=== PATIENT | female | born 1965 | race Caucasian/White ===

== ENCOUNTER 2018-04-23 16:44 | Emergency (ER) | payer OTHER, SELFPAY ==
[2018-04-23 17:03] VITALS: BP 143/80; PULSE 116; RESP 18; TEMP 39.6; O2SAT 98
--- NOTE | 2018-04-23 17:09 | ED.FEVER ---
HPI - Fever General Chief Complaint: Fever Stated Complaint: fever and chills Time Seen by Provider: 04/23/18 17:08 Source: patient Mode of arrival: ambulatory Limitations: no limitations History of Present Illness HPI Narrative: otherwise healthy 52-year-old female here for evaluation of a couple days of fevers, body aches, lower back pain. Has had somewhat of a productive cough. No dysuria but does have foul smelling urine. Has not had her flu shot this year. No sick contacts. No rashes. No headache. Has not had nausea or vomiting until just prior to arrival here in the emergency department. Has had decreased oral intake over the past several days. Related Data Home Medications Medication Instructions Recorded Confirmed cetirizine 10 mg PO QDAY #0 10/30/16 03/03/18 cholecalciferol (vitamin D3) 4 spray PO Q DAY #0 10/30/16 03/03/18 [Vitamin D3] multivitamin [Multiple Vitamins] 1 tab PO Q DAY #0 10/30/16 03/03/18 naproxen sodium 220 mg tablet 220 mg PO Q8-12H PRN 11/27/17 03/03/18 Previous Rx's Medication Instructions Recorded clindamycin phosphate 1 % TOPICAL BID #60 ml 10/26/12 sertraline 50 mg tablet 100 mg PO QDAY #180 tab 04/11/18 levofloxacin 750 mg PO DAILY 4 Days #4 tab 04/23/18 Allergies Allergy/AdvReac Type Severity Reaction Status Date / Time cat dander Allergy Intermediate itchy Verified 03/03/18 15:45 eyes, runny nose, sinus imflamation dog dander Allergy Intermediate itchy Verified 03/03/18 15:45 eyes, runny nose, sinus imflamation Review of Systems Constitutional Reports chills, Reports fatigue, Reports fever(s), Denies headache(s), Reports lethargy and Reports malaise ENT Ears, Nose, Mouth, and Throat: Denies vertigo and Denies headache(s) Cardiovascular Reports chest pain and Reports dyspnea Respiratory Reports dyspnea Gastrointestinal Gastrointestinal: Denies abdominal pain, Denies cramping, Reports nausea and Reports vomiting Genitourinary Denies dysuria Comments: Foul-smelling urine Musculoskeletal Reports myalgias and Denies arthralgias Integumentary/Breasts Denies lesions and Denies rash Neurologic Denies vertigo and Denies headache(s) Endocrine Reports fatigue Hematologic/Lymphatic Denies easy bleeding and Denies easy bruising [facility] Medical History Recurrent major depressive disorder, in remission (Chronic 12/04/15) Presence of intrauterine contraceptive device (Chronic 10/07/17) Recurrent anxiety (Chronic 1999) Seasonal allergic rhinitis due to pollen (Chronic 1971) Acne (Chronic 2011) Chronic back pain (Chronic 1999) Eczema (Chronic 1998) Joint pain (Chronic 1978) Neuropathy (Chronic 1999) PTSD (post-traumatic stress disorder) (Chronic 1999) Reactive airway disease (Chronic 1989) Right hand pain (Chronic 2012) Shoulder pain (Chronic) Back fracture (Resolved 1999) Chicken pox (Resolved 1972) Clavicle fracture (Resolved 1999) 5 (Resolved) Normal Papanicolaou smear (Resolved) Surgical History History of shoulder surgery (Resolved) Family History Father Age: 79 Colon cancer Hypertension Mother No problems noted. Sister No problems noted. Social History Smoking Status: Former smoker Exam Initial Vital Signs Initial Vital Signs: Vital Signs Temperature 103.2 F H 04/23/18 17:03 Pulse Rate 116 H 04/23/18 17:03 Respiratory Rate 18 04/23/18 17:03 Blood Pressure 143/80 H 04/23/18 17:03 Pulse Oximetry 98 04/23/18 17:03 Const General: cooperative, well developed and well groomed Orientation: alert, awake and oriented x3 HENMT Head: normal to inspection and atraumatic Resp Effort & Inspection: normal respiratory effort Auscultation: clear to auscultation bilaterally Cardio Rate: tachycardic Rhythm: regular rhythm Pulses: radial pulses present GI Inspection: non-distended Palpation: soft, No firm and No tender Back/Spine/Pelvis Back: No CVA tenderness Skin Lesions: no lesions Rashes: no rashes Neuro General: alert and oriented x3 Extrem General: normal to inspection and capillary refill normal Psych Appearance: grossly normal and well kempt Course Orders Ordered: ED Orders 04/23/18 16:55 FLU A and B [Influenza A and B by PCR Rapid] Stat 04/23/18 17:30 Urinalysis and Microscopic Stat Urine Culture Stat 04/23/18 17:32 XR chest 1V Stat Sodium Chloride (Normal Saline 0.9%) 1,000 mls @ 1,000 mls/hr IV BOLUS ONE Stop: 04/23/18 19:24 Last Admin: 04/23/18 18:40 Dose: 1,000 mls/hr Discontinued Medications Sodium Chloride (Normal Saline 0.9%) 1,000 mls @ 1,000 mls/hr IV BOLUS ONE Stop: 04/23/18 18:30 Last Admin: 04/23/18 18:40 Dose: 1,000 mls/hr Ibuprofen (Advil) 800 mg PO NOW ONE Stop: 04/23/18 17:32 Last Admin: 04/23/18 17:54 Dose: 800 mg Levofloxacin (Levaquin) 750 mg PO NOW ONE Stop: 04/23/18 18:26 Last Admin: 04/23/18 18:40 Dose: 750 mg Vital Signs - 8 hr 04/23/18 17:03 04/23/18 18:00 Temperature 103.2 F H Pulse Rate 116 H 101 H Respiratory Rate 18 Blood Pressure 143/80 H Blood Pressure [Right Arm] 98/62 Pulse Oximetry 98 96 MDM - Fever Lab Data Attestation: I reviewed the patient's lab results. Lab Results 04/23/18 04/23/18 Range/Units 16:55 17:30 Urine Color Yellow Urine Appearance Cloudy Urine pH 6.0 (4.5-8.0) Ur Specific [place] 1.020 (1.000-1.035) Urine Protein 2+ H (Negative) Urine Glucose (UA) Negative (Normal) g/dL Urine Ketones Negative (NEGATIVE) Urine Occult Blood 3+ H (Negative) Urine Nitrate Negative (Negative) Urine Bilirubin Negative (NEGATIVE) Urine Urobilinogen 0.2 (0.2) E.U./dL Ur Leukocyte Esterase 2+ H (NEGATIVE) Urine RBC 1-5/hpf (0-5/HPF) Urine WBC >100/hpf H (0-5/HPF) Ur Squamous Epith Cells 0-1 /hpf Ur Renal Epithelial Cell 5-10/hpf H Urine Bacteria Moderate (10-30) H (None) Ur Culture Indicated? Specimen cultured Micro UA Comment Not Reportable Influenza A & B (PCR) Negative (Negative) Imaging Data Chest x-ray: Radiologist's impression: PROCEDURE: XR CHEST 1V INDICATIONS: fever and cough TECHNIQUE: One view of the chest was acquired. COMPARISON: None. FINDINGS: Surgical changes and devices: None. Lungs and pleura: Streaky right basilar opacity. Mediastinum: Mediastinal contours appear normal. Heart size is normal. Bones and chest wall: No suspicious bony lesions. Overlying soft tissues appear unremarkable. IMPRESSION: Streaky right basilar opacity suggestive of developing pneumonia. Dictated by: Leann Espinosa M.D. on 04/23/2018 at 17:47 Approved by: Leann Espinosa M.D. on 04/23/2018 at 17:47 [facility] Narrative Medical decision making narrative: flu is negative. Urinalysis is somewhat concerning for UTI however does have many epi cells. Patient does describe a foul-smelling urine but no other dysuria. Patient does have an x-ray concerning for developing pneumonia. She is not in respiratory distress. Her heart rate improved with Motrin here in the emergency department and also fluids. She was given a 1st dose of antibiotics here in the ER. She states she feels better after the fluids. Will start the patient on Levaquin to treat the pneumonia and also any potential of a urinary tract infection. Patient was given return precautions. She expressed understanding and agreement with plan. Discharge Plan Departure Patient Disposition: Home Clinical Impression: Pneumonia Instructions: DI for Pneumonia -- Adult Activity Restrictions/Additional Instructions: your chest x-ray today is concerning for a pneumonia. Like we discussed year urine also has some findings that may be a urinary tract infection. The antibiotic that you were given today should treat both of these infections. You were given her 1st dose here in the emergency department. The 2nd dose will be tomorrow (Wednesday). Make sure your drinking plenty of fluids. You can take Tylenol/ acetaminophen and/or Motrin / ibuprofen for any body aches and fevers. Call your primary care doctor for a follow-up. Prescriptions: New levofloxacin 750 mg tablet 750 mg PO DAILY 4 Days Qty: 4 RF: 0 No Action naproxen sodium [Aleve] 220 mg tablet 220 mg PO Q8-12H PRNRF: 0 clindamycin phosphate 1 % lotion 1 % Topical BID Qty: 60 RF: 0 multivitamin [Multiple Vitamins] 1 EACH tablet 1 tab PO Q DAY Qty: 0 RF: 0 cholecalciferol (vitamin D3) [Vitamin D3] 4,000 UNIT capsule 4 spray PO Q DAY Qty: 0 RF: 0 cetirizine 10 MG tablet 10 mg PO QDAY Qty: 0 RF: 0 sertraline 50 mg tablet 100 mg PO QDAY Qty: 180 RF: 1
--- NOTE | 2018-04-23 17:32 | DI.RAD.S_ITS ---
PROCEDURE: XR CHEST 1V INDICATIONS: fever and cough TECHNIQUE: One view of the chest was acquired. COMPARISON: None. FINDINGS: Surgical changes and devices: None. Lungs and pleura: Streaky right basilar opacity. Mediastinum: Mediastinal contours appear normal. Heart size is normal. Bones and chest wall: No suspicious bony lesions. Overlying soft tissues appear unremarkable. IMPRESSION: Streaky right basilar opacity suggestive of developing pneumonia. Dictated by: Leann Espinosa M.D. on 04/23/2018 at 17:47 Approved by: Leann Espinosa M.D. on 04/23/2018 at 17:47
[2018-04-23 17:33] LABS: Influenza A and B by PCR Rapid Negative (Negative)
[2018-04-23 17:44] LABS: Appearance Urine UA CLOUDY; Bilirubin Urine UA NEGATIVE (NEGATIVE); Color Urine UA YELLOW; Glucose Urine UA NEGATIVE (Normal); Ketones Urine UA NEGATIVE (NEGATIVE); Leukocyte Esterase Urine UA 2+ (NEGATIVE); Nitrite Urine UA NEGATIVE (Negative); Occult Blood Urine UA 3+ (Negative); Protein Urine UA 2+ (Negative); Urobilinogen Urine UA 0.2 E.U./dL (0.2)
[2018-04-23] MEDS: IBUPROFEN 400 MG TABLET 800 MG PO (17:54)
[2018-04-23 17:58] LABS: Bacteria Urine Moderate (10-30); Culture Indicated Urine Specimen Cultured; RBC Urine 1-5/HPF (0-5/HPF); Renal Epithelial Cells Urine 5-10/HPF; Squamous Epithelial Cell Urine 0-1 /HPF; WBC Urine >100/HPF (0-5/HPF)
[2018-04-23 18:00] VITALS: BP 98/62; PULSE 101; O2SAT 96
[2018-04-23] MEDS: levoFLOXacin 250 MG TABLET 750 MG PO (18:40)
[2018-04-23] MEDS: SODIUM CHLORIDE 0.9% 1,000 ML 1000 ML IV ×2 (18:40)
[2018-04-23 19:15] VITALS: BP 107/59; PULSE 82; RESP 18; O2SAT 96
[2018-04-23 19:46] VITALS: BP 105/56; PULSE 82; RESP 18; TEMP 37.1
== END 2018-04-23 19:40 | disposition home or self-care (01) ==
PROVIDERS: Emergency Provider Emergency Medicine; PCP Family Medicine
DX: J18.9 Pneumonia, unspecified organism (principal)
CPT/HCPCS: 71045; 81001; 87077; 87086; 87186; 87400; 96360; 99283; 99284

== ENCOUNTER → 2018-07-29 09:19 | Outpatient (CLI) | payer OTHER, SELFPAY ==
[2018-07-29 09:37] LABS: Add Manual Diff / Slide Review NO; Basophils Absolute Auto 100 /uL (0-100); Basophils Percent Auto 0.9 % (0-2); Eosinophils Absolute Auto 300 /uL (0-450); Eosinophils Percent Auto 4.5 % (2-4); Hematocrit 39.6 % (36-46); Hemoglobin 13.2 g/dL (12.0-16.0); Lymphocytes Absolute Auto 1500 /uL (1100-4500); Lymphocytes Percent Auto 26.5 % (25-40); Mean Corpuscular HGB Conc 33.5 % (30-36); Mean Corpuscular Volume 86.6 fL (80-100); Monocytes Absolute Auto 400 /uL (0-900); Monocytes Percent Auto 6.7 % (3-14); Neutrophils Absolute Auto 3600 /uL (1500-7000); Neutrophils Percent Auto 61.4 % (50-75); Platelet Count 214 X10^3/uL (150-400); Red Blood Cell Count 4.57 X10^6/uL (4.0-5.2); Red Cell Distribution Width 14.2 % (11.6-14.8); White Blood Cell Count 5.8 X10^3/uL (4.5-11.0)
[2018-07-29 09:56] LABS: Alanine Aminotransferase 18 IU/L (9-52); Albumin 4.5 g/dL (3.5-5.0); Albumin Globulin Ratio 1.3 (1.0-2.8); Alkaline Phosphatase 97 U/L (38-126); Aspartate Aminotransferase 24 IU/L (14-36); Bilirubin Total 0.4 mg/dL (0.2-1.3); Blood Urea Nitrogen 12 mg/dL (7-17); Calcium 9.1 mg/dL (8.4-10.2); Carbon Dioxide 26 mmol/L (22-32); Chloride 105 mmol/L (98-107); Cholesterol 152 mg/dL (140-199); Estimated Glomerular Filt Rate > 60.0 mL/min (>60); Globulin 3.4 g/dL (1.7-4.1); Glucose 89 mg/dL (70-100); HDL Cholesterol 42 mg/dL (40-60); HEMOLYSIS < 15 (0-50); LDL Cholesterol Calculated 92 mg/dL (<100); Potassium 4.2 mmol/L (3.4-5.1); Sodium 142 mmol/L (137-145); Total Protein 7.9 g/dL (6.3-8.2); Triglycerides 88 mg/dL (35-150)
[2018-07-29 10:12] LABS: Free T3, Triiodothyronine Free 3.69 pg/mL (2.77-5.27); Free T4, Direct Thyroxine 1.01 ng/dL (0.78-2.19)
[2018-07-29 10:26] LABS: Thyroid Stimulating Hormone 2.79 uIU/mL (0.47-4.68)
[2018-07-29 10:46] LABS: Vitamin B12 431 pg/mL (239-931)
[2018-07-30 15:45] LABS: Thyroid Peroxidase Antibodies 2 IU/mL (< 9)
== END ==
PROVIDERS: Family Provider Family Medicine; PCP Family Medicine; Visit Provider Naturopath
DX: Z00.00 Encounter for general adult medical examination without abnormal findings (principal); H81.11 Benign paroxysmal vertigo, right ear; R53.83 Other fatigue; Z13.29 Encounter for screening for other suspected endocrine disorder
CPT/HCPCS: 36415; 80053; 80061; 82607; 84439; 84443; 84481; 85025; 86376

== ENCOUNTER → 2018-10-23 12:37 | Outpatient (CLI) | payer OTHER, SELFPAY | PROVIDERS: Family Provider Family Medicine; PCP Family Medicine; Visit Provider Physician Assistant | DX: J02.9 Acute pharyngitis, unspecified (principal) | CPT/HCPCS: 87070 ==

== ENCOUNTER 2019-12-12 13:08 | Emergency (ER) | payer OTHER, SELFPAY ==
--- NOTE | 2019-12-12 13:15 | ED_ITS ---
HPI - Extremity Injury (Lower) General Chief Complaint: Extremity Injury, Lower Stated Complaint: Rt angle may be broken Time Seen by Provider: 12/12/19 13:12 Source: patient Mode of arrival: Ambulatory History of Present Illness HPI Narrative: 54-year-old female here for evaluation of right ankle injury. Patient states that yesterday she was walking in her backyard and stepped into a hole that her dog had dug. Inverted her ankle. Had pain afterwards. Was able to ambulate but with quite a bit of discomfort afterwards. This morning woke up with swelling and continued pain the outside of her right ankle. She got a set of crutches from her neighbors. Came to the emergency department for evaluation. No other injuries reported from the event. Related Data Home Medications Medication Instructions Recorded Confirmed cetirizine 10 mg PO QDAY #0 10/30/16 08/28/19 cholecalciferol (vitamin D3) 4 spray PO Q DAY #0 10/30/16 08/28/19 [Vitamin D3] multivitamin [Multiple Vitamins] 1 tab PO Q DAY #0 10/30/16 08/28/19 naproxen sodium 220 mg tablet 220 mg PO Q8-12H PRN 11/27/17 08/28/19 Previous Rx's Medication Instructions Recorded sertraline 50 mg tablet 100 mg PO QDAY #180 tab 10/25/18 ergocalciferol (vitamin D2) 1,250 50,000 unit PO QWEEK #8 cap 08/28/19 mcg (50,000 unit) capsule Allergies Allergy/AdvReac Type Severity Reaction Status Date / Time cat dander Allergy Intermediate itchy Verified 08/28/19 15:00 eyes, runny nose, sinus imflamation dog dander Allergy Intermediate itchy Verified 08/28/19 15:00 eyes, runny nose, sinus imflamation Review of Systems Constitutional Constitutional: Denies headache(s) ENT Ears, Nose, Mouth, and Throat: Denies headache(s) Musculoskeletal Comments: Right ankle pain Integumentary/Breasts Comments: Swelling to the right ankle Neurologic Neurologic: Denies headache(s) and Denies sensory deficit Hematologic/Lymphatic Hematologic/Lymphatic: Denies easy bleeding and Denies easy bruising Patient History Medical History Acne (Chronic 2011) Animal dander allergy (Chronic) Back fracture (Resolved 1999) Chicken pox (Resolved 1972) Chronic back pain (Chronic 1999) Clavicle fracture (Resolved 1999) Cow's milk protein allergy (Acute) Eczema (Chronic 1998) 5 (Resolved) Joint pain (Chronic 1978) Neuropathy (Chronic 1999) Normal Papanicolaou smear (Resolved) Presence of intrauterine contraceptive device (Chronic 10/07/17) PTSD (post-traumatic stress disorder) (Chronic 1999) Reactive airway disease (Chronic 1989) Recurrent anxiety (Chronic 1999) Recurrent major depressive disorder, in remission (Chronic 12/04/15) Right hand pain (Chronic 2012) Seasonal allergic rhinitis due to pollen (Chronic 1971) Shoulder pain (Chronic) Surgical History History of shoulder surgery (Resolved) Family History Father Age: 80 Colon cancer Hypertension Mother No problems noted. Sister No problems noted. Social History Smoking Status: Former smoker Smoking Status: Former smoker Exam Const General: cooperative, comfortable and well developed Cardio Pulses: dorsalis pedis present on the right Skin Lesions: no lesions Rashes: no rashes Neuro Sensory Exam: no sensory deficits noted Extrem Other: No proximal fibula tenderness on the right. Has tenderness to palpation both posteriorly and distal portion of right lateral malleolus. No tenderness along the metatarsals. No medial malleolar pain. Course Orders Ordered: ED Orders 12/12/19 13:14 XR ankle RT min 3V Stat MDM - Extremity Injury (Lower) Imaging Data Extremity x-ray #1: Radiologist's Impression: [address] [address] XRay Report Signed Patient: Polina Antony [facility]#: [id number] : 1965Acct:[id number] Age/Sex: 54 / FDate of Service: 12/12/19 Loc: ED Accession Number: [id number] Procedure: XR ankle RT min 3V Ordering Provider: Jalil Pineda D.O. PROCEDURE: XR ANKLE RT MIN 3V INDICATIONS: twisting injury yesterday, rt ankle/foot pain/swelling TECHNIQUE: 3 views of the ankle were acquired. COMPARISON: None. FINDINGS: Bones: There is an ossific/calcific density that has a rounded appearance that is located at the tip of the lateral malleolus, probably related to previous injury. There is no acute fracture or dislocation. No suspicious osseous lesions are identified. Soft tissues: No definite tibiotalar joint effusion. Soft tissue swelling is present about the lateral malleolus. IMPRESSION: Ossific/calcific density at the tip of the lateral malleolus probably is related to prior trauma. No definite acute fractures are appreciated. If there is continued clinical concern for an acute fracture, CT would be helpful for furth er evaluation. Dictated by: Cali Nolasco M.D. on 12/12/2019 at 12:50 Approved by: Cali Nolasco M.D. on 12/12/2019 at 12:52 MDM Narrative Medical decision making narrative: No fractures on the x-ray. Patient is neurovascularly intact. Does have some swelling. She has crutches and an Bryant bandage from home which she will use. No further workup needed here in the emergency department. Patient was given return precautions and follow-up instructions. She expressed understanding and agreement. Discharge Plan Departure Prescriptions: No Action naproxen sodium [Aleve] 220 mg tablet 220 mg PO Q8-12H PRNRF: 0 multivitamin [Multiple Vitamins] 1 EACH tablet 1 tab PO Q DAY Qty: 0 RF: 0 cholecalciferol (vitamin D3) [Vitamin D3] 4,000 UNIT capsule 4 spray PO Q DAY Qty: 0 RF: 0 cetirizine 10 MG tablet 10 mg PO QDAY Qty: 0 RF: 0 sertraline 50 mg tablet 100 mg PO QDAY Qty: 180 RF: 1 ergocalciferol (vitamin D2) [Vitamin D2] 1,250 mcg (50,000 unit) capsule 50,000 unit PO QWEEK Qty: 8 RF: 0
== END 2019-12-12 14:30 | disposition home or self-care (01) ==
PROVIDERS: Emergency Provider Emergency Medicine; Family Provider Family Medicine; PCP Family Medicine
DX: S93.401A Sprain of unspecified ligament of right ankle, initial encounter (principal)
CPT/HCPCS: 73610; 99281; 99283

== ENCOUNTER → 2020-02-14 17:25 | Outpatient (CLI) | payer OTHER, SELFPAY ==
--- NOTE | 2020-02-14 | DI.MG.S_ITS ---
BILATERAL DIGITAL SCREENING MAMMOGRAM 3D/2D WITH CAD: 02/14/2020 CLINICAL: Routine screening. Comparison is made to exams dated: 01/08/2012 mammogram, 07/07/2011 mammogram, and 12/25/2010 mammogram - [facility]. The tissue of both breasts is heterogeneously dense. This may lower the sensitivity of mammography. Current study was also evaluated with a Computer Aided Detection (CAD) system. There are new 3.5 cm x 1.8 cm regional fine heterogeneous calcifications in the left breast at 3 o'clock posterior depth. No other significant masses, calcifications, or other findings are seen in either breast. IMPRESSION: INCOMPLETE: NEEDS ADDITIONAL IMAGING EVALUATION The new 3.5 cm x 1.8 cm regional fine heterogeneous calcifications in the left breast are indeterminate. Mediolateral and spot magnification views as well as additional views with possible ultrasound are recommended. This exam was interpreted at Station ID: [id number]. NOTE: For mammograms, a report in lay terms will be sent to the patient. Approximately 15% of breast malignancies will not be visualized mammographically. In the management of a palpable breast mass, a negative mammogram must not discourage biopsy of a clinically suspicious lesion. Electronically Signed By: Kaz Sosa M.D. aty/:02/15/2020 07:44:43 copy to: VENECIA CADET letter sent: Additional Imaging Needed ACR BI-RADS Category 0: Incomplete [id number]
== END ==
PROVIDERS: Family Provider Family Medicine; PCP Family Medicine; Referring Provider Family Medicine; Visit Provider Family Medicine
DX: Z12.31 Encounter for screening mammogram for malignant neoplasm of breast (principal)
CPT/HCPCS: 77063; 77067

== ENCOUNTER → 2020-02-19 12:37 | Outpatient (CLI) | payer OTHER, SELFPAY ==
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
== END ==
PROVIDERS: Family Provider Family Medicine; PCP Family Medicine; Referring Provider Family Medicine; Visit Provider Family Medicine
DX: M47.22 Other spondylosis with radiculopathy, cervical region (principal); M48.02 Spinal stenosis, cervical region; R20.0 Anesthesia of skin
CPT/HCPCS: 72141

== ENCOUNTER → 2020-03-13 14:10 | Outpatient (CLI) | payer OTHER, SELFPAY ==
--- NOTE | 2020-03-13 14:22 | DI.MG.S_ITS ---
Patient Name: SHUKRI LO date: 1965 Sex: F Attending Physician: Reji Indications: Date: 03/13/2020 14:13 At the request of: CHETNA WILLSON Procedure: MM special view LT UNILATERAL LEFT DIGITAL DIAGNOSTIC MAMMOGRAM 3D/2D WITH ADDITIONAL VIEWS: 03/13/2020 CLINICAL: Additional evaluation requested from prior study. Comparison is made to exams dated: 02/14/2020 mammogram, 01/08/2012 mammogram, and 07/07/2011 mammogram - [facility]. The tissue of left breast is heterogeneously dense. This may lower the sensitivity of mammography. There are grouped heterogeneous calcifications in the left breast central to the nipple posterior depth. No other significant masses or calcifications are seen in the breast. IMPRESSION: INCOMPLETE: NEEDS ADDITIONAL IMAGING EVALUATION The grouped heterogeneous calcifications in the left breast are indeterminate. A targeted ultrasound of the left breast is recommended and will be performed immediately following this exam. This exam was interpreted at Station ID: [id number]. NOTE: For mammograms, a report in lay terms will be sent to the patient. Approximately 15% of breast malignancies will not be visualized mammographically. In the management of a palpable breast mass, a negative mammogram must not discourage biopsy of a clinically suspicious lesion. Electronically Signed By: Breana Pierre M.D. lk/:03/13/2020 14:32:52 copy to: VENECIA CADET Continued Report - Page 2 of 2 Patient Name: SHUKRI LO date: 1965 Sex: F Attending Physician: Reji Indications: Date: 03/13/2020 14:13 At the request of: CHETNA WILLSON Procedure: MM special view LT ACR BI-RADS Category 0: Incomplete 3340F
--- NOTE | 2020-03-13 15:58 | DI.US.S_ITS ---
Patient Name: SHUKRI LO date: 1965 Sex: F Attending Physician: Reji Indications: Date: 03/13/2020 16:18 At the request of: CHETNA WILLSON Procedure: US breast LT limited ULTRASOUND OF LEFT BREAST: 03/13/2020 CLINICAL: Patient returns today to evaluate asymmetry and calcifications in left breast. PT also feels lump left breast 3:00 position. Comparison is made to exams dated: 03/13/2020 mammogram, 02/14/2020 mammogram, 01/08/2012 mammogram, 07/07/2011 mammogram, 12/25/2010 mammogram, and 12/12/2010 mammogram - [facility]. Color flow and real-time ultrasound of the left breast were performed on the areas of interest. Cain scale images of the real-time examination were reviewed. There is a 2.9 cm irregular mass in the left breast at 3 o'clock middle depth. This irregular mass is hypoechoic. This correlates as palpated and with mammography findings. There are related microcalcifications. The left axilla was interogated and normal appearing lymph nodes are visualized. IMPRESSION: SUSPICIOUS OF MALIGNANCY No left axillary adenopathy. The 2.9 cm irregular mass in the left breast is at a high suspicion for malignancy. An ultrasound guided biopsy is recommended. This exam was interpreted at Station ID: [id number]. SUMMARY: This was discussed with the patient by the radiologist Dr. Sosa at the time of the exam. Electronically Signed By: Breana Pierre M.D. lk/:03/13/2020 16:34:25 copy to: VENECIA CADET Continued Report - Page 2 of 2 Patient Name: SHUKRI LO date: 1965 Sex: F Attending Physician: Reji Indications: Date: 03/13/2020 16:18 At the request of: CHETNA WILLSON Procedure: US breast LT limited letter sent: Biopsy Required Ultrasound BI-RADS: 4c High suspicion of malignancy
== END ==
PROVIDERS: Family Provider Family Medicine; PCP Family Medicine; Referring Provider Family Medicine; Visit Provider Family Medicine
DX: R92.8 Other abnormal and inconclusive findings on diagnostic imaging of breast (principal); R92.1 Mammographic calcification found on diagnostic imaging of breast; N63.25 Unspecified lump in the left breast, overlapping quadrants
CPT/HCPCS: 76642; 77065; G0279

== ENCOUNTER → 2020-03-21 12:29 | Outpatient (CLI) | payer OTHER, SELFPAY ==
--- NOTE | 2020-03-21 | PATH_ITS ---
[facility] Accession Number: [id number] . 01 Material submitted: . breast - LEFT BREAST MASS 3:00 [id number] . 01 Diagnosis: Left Breast Mass, 3 o'clock, 6 cm from the Nipple, Biopsy: Ductal carcinoma in situ (DCIS) with the following features: 1. Architectural Patterns: Solid and comedo. 2. Nuclear Grade: High. 3. Necrosis: Present central (expansive comedo necrosis). 4. Amount of DCIS: Present on eight cores, single largest dimension at least 8 mm on this sample. 5. Calcifications: Present in association with DCIS and in stroma of benign breast tissue. 6. Estrogen Receptor Status: Negative (less than 1% tumor cells staining; staining intensity: weak; internal controls: present). [facility] 03/25/2020 1456 Local . 01 Electronically signed: . Jessy Hicks MD, Pathologist NPI- [id number] . 01 Gross description: . Received in formalin, labeled LT breast, are multiple fragments of pizarro, fibrous tissue ranging in size from 1.4 x 0.6 x 0.3 cm to 0.5 x 0.4 x 0.3 cm. Collection date and time are listed as 03-21-20 at 14:0.2, for a total fixation time after processing of approximately 13 hours. ([id number]) /[facility] 03/22/2020 0303 Local . 01 Microscopic: . Predictive marker immunohistochemical studies are performed on block A1 with the ductal carcinoma in situ showing the following results: . Estrogen receptor (SP1): Negative (Less than 1% tumor cells staining; staining intensity: Weak). . Internal controls for ER are positive. Cold ischemic time is <5 minutes. The scoring criteria for breast biomarkers by immunohistochemistry is based on the ASCO/CAP guidelines (Carlene AC et al J Clin Oncol 2018: 2017 10;36(20):3156-3851 and Roro ME et al, Arch Pathol Lab Med 2009;134(6):907-22). Deparaffinized sections of formalin fixed tissue (along with appropriate positive controls) are incubated with the above antibody(s). Using the automated [place] stainer, tissue is incubated with the designated antibody which is then localized by a non-biotin, dual polymer detection system. The external controls are reviewed for appropriate reactivity and found to be adequate. Results on the target cell population are indicated above. These tests have not been validated on decalcified tissue. This test was developed and its performance characteristics determined by [facility]. It has not been cleared or approved by the U.S. Food and Drug Administration. The FDA has determined that such clearance or approval is not necessary. This test is used for clinical purposes. It should not be regarded as investigational or for research. . 01 Pathologist provided ICD-10: D05.12 . 01 CPT . 201039, 971301 Performed at: [facility] [address] [place] [address] [address], [place], [place] [id number] MD Yogi Champagne MD Phone: [phone]
--- NOTE | 2020-03-21 12:30 | DI.US.S_ITS ---
ULTRASOUND GUIDED BIOPSY LEFT BREAST USING VACUUM DEVICE WITH MARKING DEVICE INSERTED: 03/21/2020 CLINICAL: Left breast mass. PATIENT CONSENT: Risks (minor bleeding, infection, vasovagal reaction and repeat procedure), benefits and alternatives were explained to the patient and written informed consent was obtained. Correlation is made to exams dated: 03/13/2020 ultrasound, 03/13/2020 mammogram, and 02/14/2020 mammogram - [facility]. An ultrasound guided biopsy using real-time ultrasound was performed for the irregular shaped lesion located in the left breast at 3 o'clock middle depth. The skin was prepped in the usual manner. Local anesthetic was administered to the access site. The abnormality was approached from the lateral aspect. A biopsy needle was placed adjacent to the abnormality under ultrasound guidance. Once the needle was documented to be in the correct location, eight specimens were obtained using the Mammotome biopsy system. A clip was inserted into the biopsy cavity. The specimens were sent to the laboratory for pathological analysis. IMPRESSION: ULTRASOUND GUIDED BIOPSY MALIGNANT Ultrasound guided biopsy of the lesion in the left breast at 3 o'clock middle depth was successful. Pathology results are positive for DCIS, solid and comedo types. Surgical and oncologic referral recommended. This exam was interpreted at Station ID: [id number]. Saul almazan,jr/:03/26/2020 10:16:08 copy to: VENECIA CADET
--- NOTE | 2020-03-21 12:46 | DI.MG.S_ITS ---
UNILATERAL LEFT DIGITAL DIAGNOSTIC MAMMOGRAM POST-NEEDLE BIOPSY: 03/21/2020 CLINICAL: Left breast mass. Comparison is made to exams dated: 03/13/2020 mammogram, 02/14/2020 mammogram, and 01/08/2012 mammogram - [facility]. The tissue of left breast is heterogeneously dense. This may lower the sensitivity of mammography. There is a marker clip in the appropriate position in the left breast at 3 o'clock .This marker clip placement is at the biopsy site. IMPRESSION: POST PROCEDURE MAMMOGRAM FOR MARKER PLACEMENT There was a successful marker clip placement in the left breast This exam was interpreted at Station ID: [id number]. NOTE: For mammograms, a report in lay terms will be sent to the patient. Approximately 15% of breast malignancies will not be visualized mammographically. In the management of a palpable breast mass, a negative mammogram must not discourage biopsy of a clinically suspicious lesion. Electronically Signed By: Saul almazan/:03/21/2020 16:02:59 copy to: VENECIA CADET ACR BI-RADS Category Post-procedure mammogram for marker placement
== END ==
PROVIDERS: Family Provider Family Medicine; PCP Family Medicine; Referring Provider Family Medicine; Visit Provider Family Medicine
DX: N63.25 Unspecified lump in the left breast, overlapping quadrants (principal)
CPT/HCPCS: 19083; 77065

== ENCOUNTER → 2020-05-20 11:15 | Outpatient (CLI) | payer OTHER, SELFPAY ==
--- NOTE | 2020-05-20 11:16 | DI.MRI.S_ITS ---
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 Comparison is made to exams dated: 03/21/2020 ultrasound biopsy, 03/21/2020 mammogram, 03/13/2020 ultrasound, 03/13/2020 mammogram, and 02/14/2020 mammogram - [facility]. Interpretation of this MRI was correlated with available mammograms and ultrasounds. Informed consent was obtained from the patient. Sagittal T1 images of the right breast and axial T2 and pre and post contrast T1 images of the left breast were obtained with a dedicated breast coil. Bilateral background breast enhancement is mild. PROCEDURE: MR BREAST BI WO/W CON INDICATIONS: DCIS on biopsy TECHNIQUE: The patient was placed prone in a dedicated breast imaging coil. Precontrast axial STIR and 3D FLASH without fat saturation sequences were obtained. Both before and after bolus injection of contrast, sequential 1-minute axial 3D FLASH with fat saturation sequences for 3 time points, with subtraction images and maximum intensity projections (MIP's) generated. Delayed sagittal FLASH images with fat saturation were also obtained. Computer-aided detection, including computer algorithm analysis of MRI image data for lesion detection and characterization, pharmacokinetic analysis, with further physician review for interpretation, was performed. COMPARISON: US 03/13/20, mammogram 02/14/20 FINDINGS: Image quality: Excellent. There is mild background parenchymal enhancement. Right breast: The right breast demonstrates no abnormal focus, mass, or abnormal enhancement. Normal-appearing lymph nodes are seen in the right axilla. Left breast: The left breast has a 7 x 4 x 7 cm area of non mass like enhancement with a multicentric distribution involving from 11:00 to 6:00. Enhancement is heterogenous with a dendritic enhancement pattern. The left breast has increased vascularity. The area of enhancement has mixed kinetics. A prominent feeding vessel from the chest wall is seen, however there is no evidence of chest wall invasion. Lymph nodes in the left axilla are enlarged compared to the right. There is no nipple retraction. IMPRESSION: KNOWN BIOPSY PROVEN MALIGNANCY IMPRESSION: 1. 7 x 4 x 7 cm area of non masslike enhancement with a multicentric distribution from 11:00 to 6:00 consistent with biopsy proven DCIS. 2. Enlarged left axillary lymph nodes. 3. No evidence of chest wall invasion. BIRADS 6. This exam was interpreted at Station ID: [id number]. Electronically Signed By: Domingo Humphreys acr/:05/20/2020 18:01:09 copy to: VENECIA CADET letter sent: Clinical Evaluation ACR BI-RADS Category 6: Known biopsy proven malignancy [id number]
== END ==
PROVIDERS: Family Provider Family Medicine; PCP Family Medicine; Referring Provider Family Medicine; Visit Provider Family Medicine
DX: D05.12 Intraductal carcinoma in situ of left breast (principal)
CPT/HCPCS: 77049; A9579

== ENCOUNTER → 2020-06-20 08:30 | Outpatient (CLI) | payer OTHER, SELFPAY ==
--- NOTE | 2020-06-20 | DI.US.S_ITS ---
ULTRASOUND GUIDED BIOPSY LEFT BREAST: 06/20/2020 CLINICAL: Recent left brest DCIS diagnosis. Enlarged left axillary nodes on recent MRI. PATIENT CONSENT: Risks (minor bleeding, infection, vasovagal reaction and repeat procedure), benefits and alternatives were explained to the patient and written informed consent was obtained. Correlation is made to exams dated: 05/20/2020 breast MRI, 03/21/2020 ultrasound biopsy, 03/21/2020 mammogram, 03/13/2020 ultrasound, 03/13/2020 mammogram, and 02/14/2020 mammogram - [facility]. An ultrasound guided biopsy using real-time ultrasound was performed for the lymph node located in the left axilla. This was described on the previous MRI reports. The skin was prepped in the usual manner. Local anesthetic was administered to the access site. The abnormality was approached from the lateral aspect. A 18 gauge biopsy needle was placed adjacent to the abnormality under ultrasound guidance. Once the needle was documented to be in the correct location, five specimens were obtained using an automated biopsy gun. Post procedure imaging demonstrates the clip at the targeted area and confirmed on ultrasound. The specimens were sent to the laboratory for pathological analysis. IMPRESSION: ULTRASOUND GUIDED BIOPSY BENIGN Ultrasound guided biopsy of the lymph node in the left axillary tail was successful. Pathology indicates benign lymph node (LN). A surgical consultation is recommended. This exam was interpreted at Station ID: [id number]. Karla Humphreys fx,acr/:06/25/2020 10:09:17 copy to: VENECIA CADET
--- NOTE | 2020-06-20 | PATH_ITS ---
[facility] Accession Number: [id number] . 01 Material submitted: . lymph node - LEFT AXILLARY LYMPH NODE . 01 Clinical history: . INTRADUCTAL CARCINOMA IN SITU OF LEFT BREAST . 01 Diagnosis: Left Axillary Lymph Node, Needle Core Biopsy: Primarily adipose tissue with scant lymphoid tissue. No evidence of malignancy. MRV 06/24/2020 1502 Local . 01 Comment: An immunostain to broad spectrum cytokeratin MARTINEZ is performed with the control stained appropriately, and is negative for occult metastatic carcinoma. . This case is also reviewed by Dr. Ivis Dickerson, who concurs with the given interpretation. . * This test was developed and its performance characteristics determined by [facility]. It has not been cleared or approved by the U.S. Food and Drug Administration. The FDA has determined that such clearance or approval is not necessary. This test is used for clinical purposes. It should not be regarded as investigational or for research. . 01 Electronically signed: . Kate Camara MD, Pathologist NPI- [id number] . 01 Gross description: . LEFT AXILLARY LYMPH NODE: Received in formalin is 1 fragment(s) of pizarro, soft tissue measuring 0.8 x 0.1 x 0.1 cm submitted entirely in 1 cassette(s) /DOMINGO 06/20/20202019 Local . 01 Pathologist provided ICD-10: D05.12 . 01 CPT . 529194, [id number] Performed at: 01 [facility] [address] [place] [address], [place], [place] [id number] MD Yogi Champagne MD Phone: [phone]
--- NOTE | 2020-06-20 09:55 | SUR.PREOP ---
Only care provided for pt was changing into gown, reviewed allergies and current medications with pt. After completion of this care, Kelly from [facility] came and transferred pt to [facility]. No further charting or care done with pt.
== END ==
PROVIDERS: Family Provider Family Medicine; PCP Family Medicine; Referring Provider Surgery; Visit Provider Surgery
DX: D05.12 Intraductal carcinoma in situ of left breast (principal)
CPT/HCPCS: 38505; 76942

== ENCOUNTER → 2020-07-06 08:27 | Outpatient (CLI) | payer OTHER, SELFPAY ==
[2020-07-06 09:59] LABS: COVID19 -Nasal RAPID Negative (Negative)
== END ==
PROVIDERS: Family Provider Family Medicine; PCP Family Medicine; Visit Provider Physician Assistant
DX: Z20.822 Contact with and (suspected) exposure to COVID-19 (principal)
CPT/HCPCS: 87635

== ENCOUNTER → 2020-10-31 07:59 | Outpatient (CLI) | payer OTHER, SELFPAY ==
[2020-10-31 08:50] LABS: Add Manual Diff / Slide Review NO; Basophils Absolute Auto 0 /uL (0-100); Basophils Percent Auto 0.8 % (0-2); Eosinophils Absolute Auto 100 /uL (0-450); Hematocrit 40.6 % (36-46); Hemoglobin 13.7 g/dL (12.0-16.0); Lymphocytes Absolute Auto 2000 /uL (1100-4500); Lymphocytes Percent Auto 34.6 % (25-40); Mean Corpuscular HGB Conc 33.8 % (30-36); Mean Corpuscular Hemoglobin 29.1 PG (26-34); Mean Corpuscular Volume 86.2 fL (80-100); Monocytes Absolute Auto 400 /uL (0-900); Monocytes Percent Auto 6.9 % (3-14); Neutrophils Absolute Auto 3200 /uL (1500-7000); Neutrophils Percent Auto 55.7 % (50-75); Platelet Count 216 X10^3/uL (150-400); Red Blood Cell Count 4.71 X10^6/uL (4.0-5.2); White Blood Cell Count 5.8 X10^3/uL (4.5-11.0)
[2020-10-31 09:09] LABS: Alanine Aminotransferase 13 IU/L (<35); Albumin 4.2 g/dL (3.5-5.0); Albumin Globulin Ratio 1.4 (1.0-2.8); Alkaline Phosphatase 99 U/L (38-126); Aspartate Aminotransferase 25 IU/L (14-36); BUN Creatinine Ratio 14.1 (6-22); Bilirubin Total 0.9 mg/dL (0.2-1.3); Blood Urea Nitrogen 12 mg/dL (7-17); Calcium 9.7 mg/dL (8.4-10.2); Carbon Dioxide 28 mmol/L (22-32); Chloride 104 mmol/L (98-107); Estimated Glomerular Filt Rate > 60.0 mL/min (>60); Glucose 84 mg/dL (70-100); HEMOLYSIS < 15 (0-50); Potassium 4.1 mmol/L (3.4-5.1); Sodium 140 mmol/L (137-145); Total Protein 7.2 g/dL (6.3-8.2)
== END ==
PROVIDERS: Family Provider Family Medicine; PCP Family Medicine; Referring Provider Naturopath; Visit Provider Naturopath
DX: C50.919 Malignant neoplasm of unspecified site of unspecified female breast (principal); D64.81 Anemia due to antineoplastic chemotherapy
CPT/HCPCS: 36415; 80053; 83036; 85025

== ENCOUNTER 2021-01-30 09:45 | Outpatient (RCR) | payer OTHER, SELFPAY ==
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
--- NOTE | 2020-06-17 10:01 | PT-OP ANOTE ---
cancelled due adverse reaction to Shingles vaccine
--- NOTE | 2020-06-19 11:33 | PT-OP ANOTE ---
cancelled PT due to fever just broke this am, PCP recommends no PT today.
--- NOTE | 2020-06-25 16:28 | PT.OTN ---
Current Diagnoses Intraductal carcinoma in situ of left breast (06/25/20) Soft tissue disorder, unspecified (06/25/20) Weakness (06/25/20) Other malaise (06/25/20) Physical Therapy Treatment Note PT-OP-A Visit Information Start: 06/06/20 15:04 Freq: Status: Active Protocol: Document 06/25/20 15:17 SAK (Rec: 06/25/20 16:28 SAK [id number]) Out-Patient Physical Therapy Visit Information Visit Information Visit Type Treatment Note Visit Start Time 15:15 Visit Stop Time 16:04 Total Visit Minutes 49 Visit Number 3 Evaluation Information Evaluation Date 06/10/20 Precautions Precautions PMH: neck pain s/p whiplash; MRI 02/19/20: 1. Most significant findings are at C5-C6. There is mild canal stenosis. There is severe right and moderate left foraminal narrowing. 2. Multilevel facet arthropathy Depression, anxiety: sees counselor History left clavicle fracture , back pain, PTSD PT-OP-B Current Condition Start: 06/06/20 15:04 Freq: Status: Active Protocol: Document 06/25/20 15:17 SAK (Rec: 06/25/20 16:28 SAK [id number]) Current Condition History of Current Condition Onset Date 03/21/20 Current Complaints fatigue, pain, breast CA diagnosis History of Current Condition DCIS diagnosed in all samples from a left breast biopsy in March. Subsequent MRI showed some assymetry between the lymph nodes in the left than the right and no lesions in the right breast. She is working with Dr. Watson to develop treatment plan which will include bilateral mastectomy and chemotherapy, possible radiation. Sees Dr. Watson 06/26/20 and also sees a procurement manager that day. Patient reports fatigue, pain in bilateral shoulders, left subaxillary area. Patient is doing some yoga every morning, not doing any other exercise. Stress level high including daughter recently diagnosed with autoimmune disorder. 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 Prior Treatments and Tests diagnostic mammogram, biopsy, breast MRI. PT-OP-C Subjective Start: 06/06/20 15:04 Freq: Status: Active Protocol: Document 06/25/20 15:17 SAK (Rec: 06/25/20 16:28 SAK [id number]) OP-PT Subjective Patient Comments Patient Comments Bone pain left arm elbow to shoulder. Poor tolerance for work. Able to do part of yoga routine today. Has appointment with Dr. Watson and a procurement manager tomorow to determine plan PT-OP-Q Treatments Start: 06/06/20 15:04 Freq: Status: Active Protocol: Document 06/25/20 15:17 SAK (Rec: 06/25/20 16:28 SAK [id number]) Cardio Equipment Treadmill Duration (Minutes) 5 Speed 2.4 Incline 0 Gym Equipment Cable Column (Body Solid) scapular shrug Resistance 20# Reps/Time 6# Therapeutic Exercises Supine Exercises deep breathing Comments alternating abdominal, chest, lateral ribcage serratus punch Resistance 0 Reps/Minutes 10x pec stretch Reps/Minutes 2x 30 Sidelying Exercises open book Reps/Minutes 5x Comments manual cues for segmental movement Sitting Exercises shoulder ER Resistance L1 Reps/Minutes 6x pulleys Sitting Exercise Name shoulder flex, shoulder abduction Reps/Minutes 10x Standing Exercises rows Resistance L1 TB Reps/Minutes 6x Comments painful PT-OP-T Assessment and Plan Start: 06/06/20 15:04 Freq: Status: Active Protocol: Document 06/25/20 15:17 [facility] (Rec: 06/25/20 16:28 SAK [id number]) Physical Therapy Assessment Goals Three Impairment pain Shelter Goal (LTG) Patient will be independent with self-management of pain to include relaxation techniques, gentle exercise. LTG Duration 09/09/19 Two Impairment forward head, rounded shoulders Chain Maker Hand Goal (LTG) Patient demonstrate good understanding of neutral postural alignment and importance for decreased muscle tension and pain, and be able to self correct with minimal to no cues. LTG Duration 09/09/19 One Impairment low activity tolerance Short Term Goal (STG) Establish HEP to include deep breathing, postural correction , shoulder ROM and strengthening , and walking program. STG Duration 07/11/19 Chain Maker Hand Goal (LTG) Patient will be compliant with walking program 4x/wk and HEP and demonstrate shoulder ROM and strength WNL. LTG Duration 09/09/19 Assessment Summary Assessment Able to walk on treadmill at increased speed today for 5 min, lower tolerance for UE ex due to some continued pain and feeling congested left UE after shingles shot, pain decreased after manual treatment including MLD. Physical Therapy Plan Frequency and Duration Frequency of Treatment 2x/Week Duration of Treatment 12 weeks Plan of Care Start Date 06/10/20 Plan of Care End Date 09/08/20 Therapeutic Interventions Therapeutic Interventions Home Exercise Program,Patient/ Caregiver Education,Self-Care/ Home Management,Therapeutic Activities,Therapeutic Exercises Modalities Hot Packs Next Visit Focus/Plan Next Note Type Treatment Note Next Visit Plan Evaluate response to today's treatment. Gentle progression of ther ex. Continue manual techniques and modalities as indicated for pain management.
--- NOTE | 2020-07-02 15:09 | PT.OTN ---
Current Diagnoses Intraductal carcinoma in situ of left breast (07/02/20) Soft tissue disorder, unspecified (07/02/20) Weakness (07/02/20) Other malaise (07/02/20) Physical Therapy Treatment Note PT-OP-A Visit Information Start: 06/06/20 15:04 Freq: Status: Active Protocol: Document 07/02/20 13:01 SAK (Rec: 07/02/20 13:56 [facility] [id number]) Out-Patient Physical Therapy Visit Information Visit Information Visit Type Treatment Note Visit Start Time 13:00 Visit Stop Time 13:54 Total Visit Minutes 54 Visit Number 4 Evaluation Information Evaluation Date 06/10/20 Precautions Precautions PMH: neck pain s/p whiplash; MRI 02/19/20: 1. Most significant findings are at C5-C6. There is mild canal stenosis. There is severe right and moderate left foraminal narrowing. 2. Multilevel facet arthropathy Depression, anxiety: sees counselor History left clavicle fracture , back pain, PTSD PT-OP-B Current Condition Start: 06/06/20 15:04 Freq: Status: Active Protocol: Document 07/02/20 13:01 SAK (Rec: 07/02/20 13:56 [facility] [id number]) Current Condition History of Current Condition Onset Date 03/21/20 Current Complaints fatigue, pain, breast CA diagnosis History of Current Condition DCIS diagnosed in all samples from a left breast biopsy in March. Subsequent MRI showed some assymetry between the lymph nodes in the left than the right and no lesions in the right breast. She is working with Dr. Watson to develop treatment plan which will include bilateral mastectomy and chemotherapy, possible radiation. Sees Dr. Watson 06/26/20 and also sees a epic anesthesia analyst that day. Patient reports fatigue, pain in bilateral shoulders, left subaxillary area. Patient is doing some yoga every morning, not doing any other exercise. Stress level high including daughter recently diagnosed with autoimmune disorder. 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 Prior Treatments and Tests diagnostic mammogram, biopsy, breast MRI. PT-OP-C Subjective Start: 06/06/20 15:04 Freq: Status: Active Protocol: Document 07/02/20 13:01 SAK (Rec: 07/02/20 13:56 [facility] [id number]) OP-PT Subjective Patient Comments Patient Comments Biopsy negative for lymph nodes. Mastectomy scheduled for 07/08/19. Taking massive does of vitamins at this time, energy level better. Pinching pain limited activity , no pinching now PT-OP-Q Treatments Start: 06/06/20 15:04 Freq: Status: Active Protocol: Document 07/02/20 13:01 [facility] (Rec: 07/02/20 13:56 [facility] [id number]) Cardio Equipment Treadmill Duration (Minutes) 7 Speed 2.5 Incline 0 Gym Equipment Cable Column (Body Solid) scapular shrug Resistance 20# Reps/Time 10x Therapeutic Exercises Supine Exercises deep breathing Comments alternating abdominal, chest, lateral ribcage serratus punch Resistance 0 Reps/Minutes 10x Sidelying Exercises open book Reps/Minutes 5x Comments manual cues for segmental movement Sitting Exercises lat shrug Resistance 30 Reps/Minutes 10x pulleys Sitting Exercise Name shoulder flex, shoulder abduction Reps/Minutes 10x Manual Therapy Treatment Soft Tissue Mobilization suboccipital release Intensity/Depth Moderate Body Position Hooklying Comments instructed in use of tennis balls for home c/s, [place] Intensity/Depth gentle Body Position Hooklying Self-Care/Home Management Treatment Education Other Education post-op ther ex, schedule PT for 2 weeks post-op; issued written handouts PT-OP-T Assessment and Plan Start: 06/06/20 15:04 Freq: Status: Active Protocol: Document 07/02/20 13:01 [facility] (Rec: 07/02/20 15:08 [facility] [id number]) Physical Therapy Assessment Goals Three Impairment pain Halfway Goal (LTG) Patient will be independent with self-management of pain to include relaxation techniques, gentle exercise. LTG Duration 09/09/19 Two Impairment forward head, rounded shoulders Halfway Goal (LTG) Patient demonstrate good understanding of neutral postural alignment and importance for decreased muscle tension and pain, and be able to self correct with minimal to no cues. LTG Duration 09/09/19 One Impairment low activity tolerance Short Term Goal (STG) Establish HEP to include deep breathing, postural correction , shoulder ROM and strengthening , and walking program. STG Duration 07/11/19 Host And Hostess Goal (LTG) Patient will be compliant with walking program 4x/wk and HEP and demonstrate shoulder ROM and strength WNL. LTG Duration 09/09/19 Assessment Summary Assessment Patient scheduled for bilateral mastectomy 07/08/20. Anticipate post-op PT to begin approximately 2 weeks after. Patient demonstrated good understanding of post-op restrictions and HEP. Physical Therapy Plan Frequency and Duration Frequency of Treatment 2x/Week Duration of Treatment 12 weeks Plan of Care Start Date 06/10/20 Plan of Care End Date 09/08/20 Therapeutic Interventions Therapeutic Interventions Home Exercise Program,Patient/ Caregiver Education,Self-Care/ Home Management,Therapeutic Activities,Therapeutic Exercises Modalities Hot Packs Next Visit Focus/Plan Next Note Type Re-Evaluation Next Visit Plan See patient post-op approximately 2 weeks or when approved by surgeon.
--- NOTE | 2020-07-04 16:45 | PT.OTN ---
Current Diagnoses Intraductal carcinoma in situ of left breast (07/04/20) Soft tissue disorder, unspecified (07/04/20) Weakness (07/04/20) Other malaise (07/04/20) Physical Therapy Treatment Note PT-OP-A Visit Information Start: 06/06/20 15:04 Freq: Status: Active Protocol: Document 07/04/20 12:55 SAK (Rec: 07/04/20 13:28 SAK [id number]) Out-Patient Physical Therapy Visit Information Visit Information Visit Type Treatment Note Visit Start Time 13:00 Visit Stop Time 13:54 Total Visit Minutes 54 Visit Number 5 Precautions Precautions PMH: neck pain s/p whiplash; MRI 02/19/20: 1. Most significant findings are at C5-C6. There is mild canal stenosis. There is severe right and moderate left foraminal narrowing. 2. Multilevel facet arthropathy Depression, anxiety: sees counselor History left clavicle fracture , back pain, PTSD PT-OP-B Current Condition Start: 06/06/20 15:04 Freq: Status: Active Protocol: Document 07/04/20 12:55 SAK (Rec: 07/04/20 13:28 SAK [id number]) Current Condition History of Current Condition Onset Date 03/21/20 Current Complaints fatigue, pain, breast CA diagnosis History of Current Condition DCIS diagnosed in all samples from a left breast biopsy in March. Subsequent MRI showed some assymetry between the lymph nodes in the left than the right and no lesions in the right breast. She is working with Dr. Watson to develop treatment plan which will include bilateral mastectomy and chemotherapy, possible radiation. Sees Dr. Watson 06/26/20 and also sees a semi driver that day. Patient reports fatigue, pain in bilateral shoulders, left subaxillary area. Patient is doing some yoga every morning, not doing any other exercise. Stress level high including daughter recently diagnosed with autoimmune disorder. 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 Prior Treatments and Tests diagnostic mammogram, biopsy, breast MRI. PT-OP-C Subjective Start: 06/06/20 15:04 Freq: Status: Active Protocol: Document 07/04/20 12:55 SAK (Rec: 07/04/20 13:28 SAK [id number]) OP-PT Subjective Patient Comments Patient Comments Patient able to do 1 more appointment prior to her surgery due to alteration in other appointments. PT-OP-Q Treatments Start: 06/06/20 15:04 Freq: Status: Active Protocol: Document 07/04/20 12:[address] [facility] (Rec: 07/04/20 13:[address] [facility] [id number]) Cardio Equipment Treadmill Duration (Minutes) 10 Speed 2.5 Incline 0 Therapeutic Exercises Supine Exercises deep breathing Comments alternating abdominal, chest, lateral ribcage serratus punch Resistance 0 Reps/Minutes 10x pec stretch Reps/Minutes 2x 30 Sidelying Exercises shoulder abduction Sidelying Exercise Name AROM and pin and stretch Reps/Minutes 3xs open book Reps/Minutes 5x Comments manual cues for segmental movement Sitting Exercises pulleys Comments given information for obtaining pulleys for home use . Manual Therapy Treatment Soft Tissue Mobilization suboccipital release Intensity/Depth Moderate Body Position Hooklying c/s, UT Intensity/Depth gentle Body Position Hooklying Joint Mobilizations scapula Direction elevation, depression, retraction,upward rotation Body Position Sidelying Self-Care/Home Management Treatment Education Other Education informnation given regarding obtaining pulleys for home use PT-OP-T Assessment and Plan Start: 06/06/20 15:04 Freq: Status: Active Protocol: Document 07/04/20 12:[address] [facility] (Rec: 07/04/20 13:[address] [facility] [id number]) Physical Therapy Assessment Goals Three Impairment pain Tool Dispatcher Goal (LTG) Patient will be independent with self-management of pain to include relaxation techniques, gentle exercise. LTG Duration 09/09/19 Two Impairment forward head, rounded shoulders Tool Dispatcher Goal (LTG) Patient demonstrate good understanding of neutral postural alignment and importance for decreased muscle tension and pain, and be able to self correct with minimal to no cues. LTG Duration 09/09/19 One Impairment low activity tolerance Short Term Goal (STG) Establish HEP to include deep breathing, postural correction , shoulder ROM and strengthening , and walking program. STG Duration 07/11/19 Tool Dispatcher Goal (LTG) Patient will be compliant with walking program 4x/wk and HEP and demonstrate shoulder ROM and strength WNL. LTG Duration 09/09/19 Progress Towards Goals Progress Towards Goals Progressing Toward Goals Assessment Summary Assessment Patient scheduled for bilateral mastectomy 07/08/20. Anticipate post-op PT to begin approximately 2 weeks after pending recommendation from physician. Patient demonstrated good understanding of post-op restrictions and HEP. Physical Therapy Plan Frequency and Duration Frequency of Treatment 2x/Week Duration of Treatment 12 weeks Plan of Care Start Date 06/10/20 Plan of Care End Date 09/08/20 Therapeutic Interventions Therapeutic Interventions Home Exercise Program,Patient/ Caregiver Education,Self-Care/ Home Management,Therapeutic Activities,Therapeutic Exercises Modalities Hot Packs Next Visit Focus/Plan Next Note Type Re-Evaluation Next Visit Plan See patient post-op approximately 2 weeks or when approved by surgeon.
--- NOTE | 2020-08-05 16:42 | PT.OTRE ---
Current Diagnoses Intraductal carcinoma in situ of left breast (08/05/20) Soft tissue disorder, unspecified (08/05/20) Weakness (08/05/20) Other malaise (08/05/20) Past Medical History (Last Reviewed 12/12/19 @ 13:22 by Jalil Pineda DO) Acne (2011) Animal dander allergy Back fracture (1999) Chicken pox (1972) Chronic back pain (1999) Clavicle fracture (1999) Cow's milk protein allergy Eczema (1998) 5 Joint pain (1978) Neuropathy (1999) Normal Papanicolaou smear Presence of intrauterine contraceptive device (10/07/17) PTSD (post-traumatic stress disorder) (1999) Reactive airway disease (1989) Recurrent anxiety (1999) Recurrent major depressive disorder, in remission (12/04/15) Right hand pain (2012) Seasonal allergic rhinitis due to pollen (1971) Shoulder pain Surgical History (Last Reviewed 12/12/19 @ 13:22 by Jalil Pineda DO) History of shoulder surgery Visit Care Team Role Provider Type Clara Mendoza DO Attending Provider Physician Family Provider Primary Care Provider Referring Provider Specialty: Family Practice Address: [address] [place] [address], [address], [facility] Email: [email or web address] Physical Therapy Re-Evaluation PT-OP-A Visit Information Start: 06/06/20 15:04 Freq: Status: Active Protocol: Document 08/05/20 15:18 SAK (Rec: 08/05/20 15:47 SAK [id number]) Out-Patient Physical Therapy Visit Information Visit Information Visit Type Treatment Note Visit Start Time 15:16 Visit Stop Time 16:06 Total Visit Minutes 54 Visit Number 6 Precautions Precautions PMH: neck pain s/p whiplash; MRI 02/19/20: 1. Most significant findings are at C5-C6. There is mild canal stenosis. There is severe right and moderate left foraminal narrowing. 2. Multilevel facet arthropathy Depression, anxiety: sees counselor History left clavicle fracture , back pain, PTSD PT-OP-B Current Condition Start: 06/06/20 15:04 Freq: Status: Active Protocol: Document 08/05/20 15:18 SAK (Rec: 08/05/20 15:47 SAK [id number]) Current Condition History of Current Condition Onset Date 03/21/20 Current Complaints fatigue, pain, breast CA diagnosis History of Current Condition DCIS diagnosed in all samples from a left breast biopsy in March. Subsequent MRI showed some assymetry between the lymph nodes in the left than the right and no lesions in the right breast. She is working with Dr. Watson to develop treatment plan which will include bilateral mastectomy and chemotherapy, possible radiation. Sees Dr. Watson 06/26/20 and also sees a vp analysis that day. Patient reports fatigue, pain in bilateral shoulders, left subaxillary area. Patient is doing some yoga every morning, not doing any other exercise. Stress level high including daughter recently diagnosed with autoimmune disorder. 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 Prior Treatments and Tests diagnostic mammogram, biopsy, breast MRI. PT-OP-C Subjective Start: 06/06/20 15:04 Freq: Status: Active Protocol: Document 08/05/20 15:18 [facility] (Rec: 08/05/20 15:47 [facility] [id number]) OP-PT Subjective Patient Comments Patient Comments double mastectomy 07/08/19. Taking Alleve for muscle cramping and pain in chest. For first 2 weeks worked on posture and deep breathing as instructed by PT. Then drains removed, and states she started chest opening exercises ggently as given by PT. Has eased into gentle yoga, modifying it based on how her body is feeling. Drove for second time today, starting to be able to do very light housework. most difficulty with sideways and up motions with arms. Can't lay on her left side and has difficulty laying on back with hands behind head due to shoulder and chest tightness. incisions healing, has scab on left. States doctor said don't let anybody tell you what you can and can't do, let your body tell you. PT-OP-Q Treatments Start: 06/06/20 15:04 Freq: Status: Active Protocol: Document 07/04/20 12:55 SAK (Rec: 07/04/20 13:28 [facility] [id number]) Cardio Equipment Treadmill Duration (Minutes) 10 Speed 2.5 Incline 0 Therapeutic Exercises Supine Exercises deep breathing Comments alternating abdominal, chest, lateral ribcage serratus punch Resistance 0 Reps/Minutes 10x pec stretch Reps/Minutes 2x 30 Sidelying Exercises shoulder abduction Sidelying Exercise Name AROM and pin and stretch Reps/Minutes 3xs open book Reps/Minutes 5x Comments manual cues for segmental movement Sitting Exercises pulleys Comments given information for obtaining pulleys for home use . Manual Therapy Treatment Soft Tissue Mobilization suboccipital release Intensity/Depth Moderate Body Position Hooklying c/s, UT Intensity/Depth gentle Body Position Hooklying Joint Mobilizations scapula Direction elevation, depression, retraction,upward rotation Body Position Sidelying Self-Care/Home Management Treatment Education Other Education informnation given regarding obtaining pulleys for home use PT-OP-T Assessment and Plan Start: 06/06/20 15:04 Freq: Status: Active Protocol: Document 08/05/20 15:18 SAK (Rec: 08/05/20 15:47 [facility] [id number]) Physical Therapy Assessment Goals Four Impairment soft tissue tightness anterior chest and should and decreased scar mobility Short Term Goal (STG) Patient to be instructed in gentle self-massage as part of her home management 08/05/20: started today with patient demonstrating good understanding STG Duration 08/18/20 Detention Goal (LTG) Soft tissue mobility to be WNL including scar mobility anterior chest and shoulders to allow for full function bilateral LE's LTG Duration 09/04/20 Three Impairment pain Detention Goal (LTG) Patient will be independent with self-management of pain to include relaxation techniques, gentle exercise. 08/05/20: good goal progress following mastectomy has used deep breathing as instructed. LTG Duration 09/08/20 Two Impairment forward head, rounded shoulders Bill Of Materials Clerk Goal (LTG) Patient demonstrate good understanding of neutral postural alignment and importance for decreased muscle tension and pain, and be able to self correct with minimal to no cues. 08/05/20: good progress with patient working on postural correction exercises as instructed, gently easing back into them plus gentle yoga at this time LTG Duration 09/04/20 One Impairment low activity tolerance Short Term Goal (STG) Establish HEP to include deep breathing, postural correction , shoulder ROM and strengthening , and walking program. 08/05/20: started prior to mastectomy and gently resumed after mastectomy, good progress. Will gently progress ther ex as tolerated. STG Duration 07/11/20 Detention Goal (LTG) Patient will be compliant with walking program 4x/wk and HEP and demonstrate shoulder ROM and strength WNL. 08/05/20: again,patient gently resuming HEP as instructed. ROM 75% LTG Duration 09/04/20 Assessment Summary Assessment Patient seen for first PT visit s/p double mastectomy with sentinal node dissection left 07/08/20. Patient overall doing well 1 month post-op with incision on right mostly healed, incision on left with scab in middle, no signs or symptoms of infection. Since surgery patient reports she has followed PT recommendations for deep breathing exercises, postural correction, gentle ther ex for ROM. She is taking Alleve for pain and muscle cramps which appears to be providing good pain control. Circumferential measurements were taken bilateral UE's. No signs or symptoms of lymphedema at this time. She will benefit from physical therapy for gentle progression of her ther ex and activity as tolerated to help her resume prior function of her UE's and regain activity tolerance. We will also work with manual techniques to normalize her scar and soft tissue mobility in her chest and shoulders. Physical Therapy Plan Frequency and Duration Frequency of Treatment 2x/Week Duration of Treatment 4 weeks Plan of Care Start Date 08/05/20 Plan of Care End Date 09/04/20 Therapeutic Interventions Therapeutic Interventions Home Exercise Program,Patient/ Caregiver Education,Self-Care/ Home Management,Therapeutic Activities,Therapeutic Exercises Modalities Hot Packs Next Visit Focus/Plan Next Note Type Treatment Note Next Visit Plan Assess response to today's PT session, gentle progression as tolerated with ther ex and soft tissue mobilization
--- NOTE | 2020-08-07 15:56 | PT.OTN ---
Current Diagnoses Intraductal carcinoma in situ of left breast (08/07/20) Soft tissue disorder, unspecified (08/07/20) Weakness (08/07/20) Other malaise (08/07/20) Physical Therapy Treatment Note PT-OP-A Visit Information Start: 06/06/20 15:04 Freq: Status: Active Protocol: Document 08/07/20 13:46 SAK (Rec: 08/07/20 14:34 SAK [id number]) Out-Patient Physical Therapy Visit Information Visit Information Visit Type Treatment Note Visit Start Time 13:46 Visit Stop Time 14:30 Total Visit Minutes 44 Visit Number 7 Precautions Precautions PMH: neck pain s/p whiplash; MRI 02/19/20: 1. Most significant findings are at C5-C6. There is mild canal stenosis. There is severe right and moderate left foraminal narrowing. 2. Multilevel facet arthropathy Depression, anxiety: sees counselor History left clavicle fracture , back pain, PTSD PT-OP-B Current Condition Start: 06/06/20 15:04 Freq: Status: Active Protocol: Document 08/07/20 13:46 SAK (Rec: 08/07/20 14:34 SAK [id number]) Current Condition History of Current Condition Onset Date 03/21/20 Current Complaints fatigue, pain, breast CA diagnosis History of Current Condition DCIS diagnosed in all samples from a left breast biopsy in March. Subsequent MRI showed some assymetry between the lymph nodes in the left than the right and no lesions in the right breast. She is working with Dr. Watson to develop treatment plan which will include bilateral mastectomy and chemotherapy, possible radiation. Sees Dr. Watson 06/26/20 and also sees a entry level drafter that day. Patient reports fatigue, pain in bilateral shoulders, left subaxillary area. Patient is doing some yoga every morning, not doing any other exercise. Stress level high including daughter recently diagnosed with autoimmune disorder. 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 Prior Treatments and Tests diagnostic mammogram, biopsy, breast MRI. PT-OP-C Subjective Start: 06/06/20 15:04 Freq: Status: Active Protocol: Document 08/07/20 13:46 SAK (Rec: 08/07/20 14:34 SAK [id number]) OP-PT Subjective Patient Comments Patient Comments After PT able to go 1 1/2 days without Alleve, very helpful. Took Alleve this am. Still not able to lay on her side due to discomfort in sternal area. PT-OP-Q Treatments Start: 06/06/20 15:04 Freq: Status: Active Protocol: Document 08/07/20 13:46 [facility] (Rec: 08/07/20 15:54 [facility] [id number]) Therapeutic Exercises Supine Exercises deep breathing Supine Exercise Name abdominal technique, chest, lateral chest and ribcage Comments manual cues and facil pec stretch Reps/Minutes 2x 30 Sitting Exercises pulleys Comments HEP; patient has own Manual Therapy Treatment Soft Tissue Mobilization upper thorax, chest, scar tissue Mobilization Type Myofascial Release Intensity/Depth light Body Position Hooklying Self-Care/Home Management Treatment Education Other Education self-massage: continue education for self-massage PT-OP-T Assessment and Plan Start: 06/06/20 15:04 Freq: Status: Active Protocol: Document 08/07/20 13:46 [facility] (Rec: 08/07/20 14:34 [facility] [id number]) Physical Therapy Assessment Goals Four Impairment soft tissue tightness anterior chest and should and decreased scar mobility Short Term Goal (STG) Patient to be instructed in gentle self-massage as part of her home management 08/05/20: started today with patient demonstrating good understanding STG Duration 08/18/20 Halfway Goal (LTG) Soft tissue mobility to be WNL including scar mobility anterior chest and shoulders to allow for full function bilateral LE's LTG Duration 09/04/20 Three Impairment pain Debone Supervisor Goal (LTG) Patient will be independent with self-management of pain to include relaxation techniques, gentle exercise. 08/05/20: good goal progress following mastectomy has used deep breathing as instructed. LTG Duration 09/08/20 Two Impairment forward head, rounded shoulders Debone Supervisor Goal (LTG) Patient demonstrate good understanding of neutral postural alignment and importance for decreased muscle tension and pain, and be able to self correct with minimal to no cues. 08/05/20: good progress with patient working on postural correction exercises as instructed, gently easing back into them plus gentle yoga at this time LTG Duration 09/04/20 One Impairment low activity tolerance Short Term Goal (STG) Establish HEP to include deep breathing, postural correction , shoulder ROM and strengthening , and walking program. 08/05/20: started prior to mastectomy and gently resumed after mastectomy, good progress. Will gently progress ther ex as tolerated. STG Duration 07/11/20 Debone Supervisor Goal (LTG) Patient will be compliant with walking program 4x/wk and HEP and demonstrate shoulder ROM and strength WNL. 08/05/20: again,patient gently resuming HEP as instructed. ROM 75% LTG Duration 09/04/20 Assessment Summary Assessment Patient had good pain relief after last session with emphasis on manual treatment; didn't have to use pain medication for about 36 hours. Demonstrating improved ability to expand chest and ribcage for mobility with deep breathiong and ability to do self-massage. Unable to lay on side but was instructed in partial sidelying with pillow support with good tolerance. Physical Therapy Plan Frequency and Duration Frequency of Treatment 2x/Week Duration of Treatment 4 weeks Plan of Care Start Date 08/05/20 Plan of Care End Date 09/04/20 Therapeutic Interventions Therapeutic Interventions Home Exercise Program,Patient/ Caregiver Education,Self-Care/ Home Management,Therapeutic Activities,Therapeutic Exercises Modalities Hot Packs Next Visit Focus/Plan Next Note Type Treatment Note Next Visit Plan gentle progression as tolerated with ther ex and soft tissue mobilization.
--- NOTE | 2020-08-12 15:30 | PT.OTN ---
Current Diagnoses Intraductal carcinoma in situ of left breast (08/12/20) Soft tissue disorder, unspecified (08/12/20) Weakness (08/12/20) Other malaise (08/12/20) Physical Therapy Treatment Note PT-OP-A Visit Information Start: 06/06/20 15:04 Freq: Status: Active Protocol: Document 08/12/20 15:23 SAK (Rec: 08/12/20 15:30 [facility] [id number]) Out-Patient Physical Therapy Visit Information Visit Information Visit Type Treatment Note Visit Start Time 15:16 Visit Stop Time 16:00 Total Visit Minutes 44 Visit Number 8 Precautions Precautions PMH: neck pain s/p whiplash; MRI 02/19/20: 1. Most significant findings are at C5-C6. There is mild canal stenosis. There is severe right and moderate left foraminal narrowing. 2. Multilevel facet arthropathy Depression, anxiety: sees counselor History left clavicle fracture , back pain, PTSD PT-OP-B Current Condition Start: 06/06/20 15:04 Freq: Status: Active Protocol: Document 08/12/20 15:23 SAK (Rec: 08/12/20 15:30 [facility] [id number]) Current Condition History of Current Condition Onset Date 03/21/20 Current Complaints fatigue, pain, breast CA diagnosis History of Current Condition DCIS diagnosed in all samples from a left breast biopsy in March. Subsequent MRI showed some assymetry between the lymph nodes in the left than the right and no lesions in the right breast. She is working with Dr. Watson to develop treatment plan which will include bilateral mastectomy and chemotherapy, possible radiation. Sees Dr. Watson 06/26/20 and also sees a correctional lieutenant that day. Patient reports fatigue, pain in bilateral shoulders, left subaxillary area. Patient is doing some yoga every morning, not doing any other exercise. Stress level high including daughter recently diagnosed with autoimmune disorder. 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 Prior Treatments and Tests diagnostic mammogram, biopsy, breast MRI. PT-OP-C Subjective Start: 06/06/20 15:04 Freq: Status: Active Protocol: Document 08/12/20 15:23 SAK (Rec: 08/12/20 15:30 [facility] [id number]) OP-PT Subjective Patient Comments Patient Comments Reports she tried to do planks in yoga and was very sore, realizes she is not ready for them yet. Saw massage therapist, is less sore in her neck and pec minor PT-OP-Q Treatments Start: 06/06/20 15:04 Freq: Status: Active Protocol: Document 08/12/20 15:23 [facility] (Rec: 08/12/20 15:30 [facility] [id number]) Therapeutic Exercises Supine Exercises deep breathing Supine Exercise Name abdominal technique, chest, lateral chest and ribcage Comments manual cues and facil pec stretch Reps/Minutes 2x 30 Sidelying Exercises shoulder abduction Comments HEP open book Comments HEP Sitting Exercises pulleys Comments HEP Standing Exercises rows Comments HEP Manual Therapy Treatment Soft Tissue Mobilization lat Mobilization Type Myofascial Release,Other Comments pin and stretch pec minor Mobilization Type Myofascial Release,Other Comments pin and stretch upper thorax, chest, scar tissue Mobilization Type Myofascial Release Intensity/Depth light Body Position Hooklying c/s, UT Intensity/Depth gentle Body Position Hooklying PT-OP-T Assessment and Plan Start: 06/06/20 15:04 Freq: Status: Active Protocol: Document 08/12/20 15:23 [facility] (Rec: 08/12/20 15:30 [facility] [id number]) Physical Therapy Assessment Goals Four Impairment soft tissue tightness anterior chest and should and decreased scar mobility Short Term Goal (STG) Patient to be instructed in gentle self-massage as part of her home management 08/05/20: started today with patient demonstrating good understanding STG Duration 08/18/20 Wood Pole Treater Goal (LTG) Soft tissue mobility to be WNL including scar mobility anterior chest and shoulders to allow for full function bilateral LE's LTG Duration 09/04/20 Three Impairment pain Senior Living Goal (LTG) Patient will be independent with self-management of pain to include relaxation techniques, gentle exercise. 08/05/20: good goal progress following mastectomy has used deep breathing as instructed. LTG Duration 09/08/20 Two Impairment forward head, rounded shoulders Wood Pole Treater Goal (LTG) Patient demonstrate good understanding of neutral postural alignment and importance for decreased muscle tension and pain, and be able to self correct with minimal to no cues. 08/05/20: good progress with patient working on postural correction exercises as instructed, gently easing back into them plus gentle yoga at this time LTG Duration 09/04/20 One Impairment low activity tolerance Short Term Goal (STG) Establish HEP to include deep breathing, postural correction , shoulder ROM and strengthening , and walking program. 08/05/20: started prior to mastectomy and gently resumed after mastectomy, good progress. Will gently progress ther ex as tolerated. STG Duration 07/11/20 Wood Pole Treater Goal (LTG) Patient will be compliant with walking program 4x/wk and HEP and demonstrate shoulder ROM and strength WNL. 08/05/20: again,patient gently resuming HEP as instructed. ROM 75% LTG Duration 09/04/20 Progress Towards Goals Progress Towards Goals Progressing Toward Goals Assessment Summary Assessment Patient agreeable to not do full planks at this time, otherwise tolerating gentle yoga and HEP well. Bilateral scars thickened with decreased mobility but progressing with manual treatment. Physical Therapy Plan Frequency and Duration Frequency of Treatment 2x/Week Duration of Treatment 4 weeks Plan of Care Start Date 08/05/20 Plan of Care End Date 09/04/20 Therapeutic Interventions Therapeutic Interventions Home Exercise Program,Patient/ Caregiver Education,Self-Care/ Home Management,Therapeutic Activities,Therapeutic Exercises Modalities Hot Packs Next Visit Focus/Plan Next Note Type Treatment Note Next Visit Plan gentle progression as tolerated with ther ex and soft tissue mobilization. Trial use chip bag for scar mobilization.
--- NOTE | 2020-08-14 17:06 | PT.OTN ---
Current Diagnoses Intraductal carcinoma in situ of left breast (08/14/20) Soft tissue disorder, unspecified (08/14/20) Weakness (08/14/20) Other malaise (08/14/20) Physical Therapy Treatment Note PT-OP-A Visit Information Start: 06/06/20 15:04 Freq: Status: Active Protocol: Document 08/14/20 16:59 SAK (Rec: 08/14/20 17:06 SAK [id number]) Out-Patient Physical Therapy Visit Information Visit Information Visit Type Treatment Note Visit Start Time 11:25 Visit Stop Time 12:10 Total Visit Minutes 45 Visit Number 9 Precautions Precautions PMH: neck pain s/p whiplash; MRI 02/19/20: 1. Most significant findings are at C5-C6. There is mild canal stenosis. There is severe right and moderate left foraminal narrowing. 2. Multilevel facet arthropathy Depression, anxiety: sees counselor History left clavicle fracture , back pain, PTSD PT-OP-B Current Condition Start: 06/06/20 15:04 Freq: Status: Active Protocol: Document 08/14/20 16:59 SAK (Rec: 08/14/20 17:06 SAK [id number]) Current Condition History of Current Condition Onset Date 03/21/20 Current Complaints fatigue, pain, breast CA diagnosis History of Current Condition DCIS diagnosed in all samples from a left breast biopsy in March. Subsequent MRI showed some assymetry between the lymph nodes in the left than the right and no lesions in the right breast. She is working with Dr. Watson to develop treatment plan which will include bilateral mastectomy and chemotherapy, possible radiation. Sees Dr. Watson 06/26/20 and also sees a statistical modeler that day. Patient reports fatigue, pain in bilateral shoulders, left subaxillary area. Patient is doing some yoga every morning, not doing any other exercise. Stress level high including daughter recently diagnosed with autoimmune disorder. 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 Prior Treatments and Tests diagnostic mammogram, biopsy, breast MRI. PT-OP-C Subjective Start: 06/06/20 15:04 Freq: Status: Active Protocol: Document 08/14/20 16:59 SAK (Rec: 08/14/20 17:06 SAK [id number]) OP-PT Subjective Patient Comments Patient Comments Patient reports she woke up with her HR high at 90 bpm, not feeling well. Attributes to working too much yesterday, possibly herbs taken last night for sleep, some better now, 82bpm when checks during PT. PT-OP-Q Treatments Start: 06/06/20 15:04 Freq: Status: Active Protocol: Document 08/14/20 16:59 [facility] (Rec: 08/14/20 17:06 [facility] [id number]) Therapeutic Exercises Supine Exercises deep breathing Supine Exercise Name abdominal technique, chest, lateral chest and ribcage Comments manual cues and facil pec stretch Reps/Minutes 2x 30 Manual Therapy Treatment Soft Tissue Mobilization lat Mobilization Type Myofascial Release,Other Comments pin and stretch pec minor Mobilization Type Myofascial Release,Other Comments pin and stretch upper thorax, chest, scar tissue Mobilization Type Myofascial Release Intensity/Depth light Body Position Hooklying c/s, UT Intensity/Depth gentle Body Position Hooklying PT-OP-T Assessment and Plan Start: 06/06/20 15:04 Freq: Status: Active Protocol: Document 08/14/20 16:59 [facility] (Rec: 08/14/20 17:06 [facility] [id number]) Physical Therapy Assessment Goals Four Impairment soft tissue tightness anterior chest and should and decreased scar mobility Short Term Goal (STG) Patient to be instructed in gentle self-massage as part of her home management 08/05/20: started today with patient demonstrating good understanding STG Duration 08/18/20 Bottom Buffer Goal (LTG) Soft tissue mobility to be WNL including scar mobility anterior chest and shoulders to allow for full function bilateral LE's LTG Duration 09/04/20 Three Impairment pain Bottom Buffer Goal (LTG) Patient will be independent with self-management of pain to include relaxation techniques, gentle exercise. 08/05/20: good goal progress following mastectomy has used deep breathing as instructed. LTG Duration 09/08/20 Two Impairment forward head, rounded shoulders Prison Goal (LTG) Patient demonstrate good understanding of neutral postural alignment and importance for decreased muscle tension and pain, and be able to self correct with minimal to no cues. 08/05/20: good progress with patient working on postural correction exercises as instructed, gently easing back into them plus gentle yoga at this time LTG Duration 09/04/20 One Impairment low activity tolerance Short Term Goal (STG) Establish HEP to include deep breathing, postural correction , shoulder ROM and strengthening , and walking program. 08/05/20: started prior to mastectomy and gently resumed after mastectomy, good progress. Will gently progress ther ex as tolerated. STG Duration 07/11/20 Prison Goal (LTG) Patient will be compliant with walking program 4x/wk and HEP and demonstrate shoulder ROM and strength WNL. 08/05/20: again,patient gently resuming HEP as instructed. ROM 75% LTG Duration 09/04/20 Assessment Summary Assessment Improving soft tissue mobility anterior chest including scar tissue especially with manual techniques. Patient advised to continue to monitor VS, rest more, contact physician if increased HR and BP persist Physical Therapy Plan Frequency and Duration Frequency of Treatment 2x/Week Duration of Treatment 4 weeks Plan of Care Start Date 08/05/20 Plan of Care End Date 09/04/20 Therapeutic Interventions Therapeutic Interventions Home Exercise Program,Patient/ Caregiver Education,Self-Care/ Home Management,Therapeutic Activities,Therapeutic Exercises Modalities Hot Packs Next Visit Focus/Plan Next Note Type Treatment Note Next Visit Plan gentle progression as tolerated with ther ex and soft tissue mobilization. Possible trial use chip bag for scar mobilization as unavailable today.
--- NOTE | 2020-08-26 15:37 | PT.OTN ---
Current Diagnoses Intraductal carcinoma in situ of left breast (08/26/20) Soft tissue disorder, unspecified (08/26/20) Weakness (08/26/20) Other malaise (08/26/20) Physical Therapy Treatment Note PT-OP-A Visit Information Start: 06/06/20 15:04 Freq: Status: Active Protocol: Document 08/26/20 14:31 SAK (Rec: 08/26/20 15:36 SAK [id number]) Out-Patient Physical Therapy Visit Information Visit Information Visit Type Treatment Note Visit Start Time 14:35 Visit Stop Time 15:20 Total Visit Minutes 55 Visit Number 11 Precautions Precautions PMH: neck pain s/p whiplash; MRI 02/19/20: 1. Most significant findings are at C5-C6. There is mild canal stenosis. There is severe right and moderate left foraminal narrowing. 2. Multilevel facet arthropathy Depression, anxiety: sees counselor History left clavicle fracture , back pain, PTSD PT-OP-B Current Condition Start: 06/06/20 15:04 Freq: Status: Active Protocol: Document 08/26/20 14:31 SAK (Rec: 08/26/20 15:36 SAK [id number]) Current Condition History of Current Condition Onset Date 03/21/20 Current Complaints fatigue, pain, breast CA diagnosis History of Current Condition DCIS diagnosed in all samples from a left breast biopsy in March. Subsequent MRI showed some assymetry between the lymph nodes in the left than the right and no lesions in the right breast. She is working with Dr. Watson to develop treatment plan which will include bilateral mastectomy and chemotherapy, possible radiation. Sees Dr. Watson 06/26/20 and also sees a vocational rehabilitation administrator that day. Patient reports fatigue, pain in bilateral shoulders, left subaxillary area. Patient is doing some yoga every morning, not doing any other exercise. Stress level high including daughter recently diagnosed with autoimmune disorder. 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 Prior Treatments and Tests diagnostic mammogram, biopsy, breast MRI. PT-OP-C Subjective Start: 06/06/20 15:04 Freq: Status: Active Protocol: Document 08/26/20 14:31 SAK (Rec: 08/26/20 15:36 SAK [id number]) OP-PT Subjective Patient Comments Patient Comments Sternum more sore than usual today and yesterday. Has done HEP to loosen up this am. Feels high anxiety today, HR and BP stable per patient delma . Massage therapist has done a lot of work on pec minor, improved shoulder ROM. House being cleaned today, possibly set off her anxiety due to smell. PT-OP-Q Treatments Start: 06/06/20 15:04 Freq: Status: Active Protocol: Document 08/26/20 14:31 [facility] (Rec: 08/26/20 15:36 [facility] [id number]) Therapeutic Exercises Supine Exercises deep breathing Supine Exercise Name abdominal technique, chest, lateral chest and ribcage Comments manual cues and facil Sidelying Exercises open book Comments manual facilitaiton for segmental movement. Manual Therapy Treatment Soft Tissue Mobilization pec minor Mobilization Type Myofascial Release,Other Comments pin and stretch upper thorax, chest, scar tissue Mobilization Type Instrument Assisted,Myofascial Release,Strain/Counterstrain, Strumming Intensity/Depth Moderate Body Position Hooklying c/s, UT Intensity/Depth gentle Body Position Hooklying Lymphedema Treatment Manual Lymphatic Drainage Comments sternal and rib techniques bilaterally, deep abdominal breathing PT-OP-T Assessment and Plan Start: 06/06/20 15:04 Freq: Status: Active Protocol: Document 08/26/20 14:31 [facility] (Rec: 08/26/20 15:36 [facility] [id number]) Physical Therapy Assessment Goals Four Impairment soft tissue tightness anterior chest and should and decreased scar mobility Short Term Goal (STG) Patient to be instructed in gentle self-massage as part of her home management 08/05/20: started today with patient demonstrating good understanding STG Duration 08/18/20 Half-Way Goal (LTG) Soft tissue mobility to be WNL including scar mobility anterior chest and shoulders to allow for full function bilateral LE's LTG Duration 09/04/20 Three Impairment pain Marine Engineering Teacher Goal (LTG) Patient will be independent with self-management of pain to include relaxation techniques, gentle exercise. 08/05/20: good goal progress following mastectomy has used deep breathing as instructed. LTG Duration 09/08/20 Two Impairment forward head, rounded shoulders Marine Engineering Teacher Goal (LTG) Patient demonstrate good understanding of neutral postural alignment and importance for decreased muscle tension and pain, and be able to self correct with minimal to no cues. 08/05/20: good progress with patient working on postural correction exercises as instructed, gently easing back into them plus gentle yoga at this time LTG Duration 09/04/20 One Impairment low activity tolerance Short Term Goal (STG) Establish HEP to include deep breathing, postural correction , shoulder ROM and strengthening , and walking program. 08/05/20: started prior to mastectomy and gently resumed after mastectomy, good progress. Will gently progress ther ex as tolerated. STG Duration 07/11/20 Half-Way Goal (LTG) Patient will be compliant with walking program 4x/wk and HEP and demonstrate shoulder ROM and strength WNL. 08/05/20: again,patient gently resuming HEP as instructed. ROM 75% LTG Duration 09/04/20 Assessment Summary Assessment Improved rib and sternal mobility and scar mobillity after treatment. Use of gentle suction cup mobilization not tolerated. Improving shoulder mobility with PT and massage therapy. Decreased sternal pain after mobilization. Physical Therapy Plan Frequency and Duration Frequency of Treatment 2x/Week Duration of Treatment 4 weeks Plan of Care Start Date 08/05/20 Plan of Care End Date 09/04/20 Therapeutic Interventions Therapeutic Interventions Home Exercise Program,Patient/ Caregiver Education,Self-Care/ Home Management,Therapeutic Activities,Therapeutic Exercises Modalities Hot Packs Next Visit Focus/Plan Next Note Type Treatment Note Next Visit Plan possible kinesiotape or chip bag pending kinesiotape trial, chip bag construction.
--- NOTE | 2020-08-28 11:19 | PT.OTN ---
Current Diagnoses Intraductal carcinoma in situ of left breast (08/28/20) Soft tissue disorder, unspecified (08/28/20) Weakness (08/28/20) Other malaise (08/28/20) Physical Therapy Treatment Note PT-OP-A Visit Information Start: 06/06/20 15:04 Freq: Status: Active Protocol: Document 08/28/20 09:49 SAK (Rec: 08/28/20 09:57 SAK [id number]) Out-Patient Physical Therapy Visit Information Visit Information Visit Type Treatment Note Visit Start Time 09:50 Visit Stop Time 10:45 Total Visit Minutes 55 Visit Number 12 Precautions Precautions PMH: neck pain s/p whiplash; MRI 02/19/20: 1. Most significant findings are at C5-C6. There is mild canal stenosis. There is severe right and moderate left foraminal narrowing. 2. Multilevel facet arthropathy Depression, anxiety: sees counselor History left clavicle fracture , back pain, PTSD PT-OP-B Current Condition Start: 06/06/20 15:04 Freq: Status: Active Protocol: Document 08/28/20 09:49 SAK (Rec: 08/28/20 09:57 SAK [id number]) Current Condition History of Current Condition Onset Date 03/21/20 Current Complaints fatigue, pain, breast CA diagnosis History of Current Condition DCIS diagnosed in all samples from a left breast biopsy in March. Subsequent MRI showed some assymetry between the lymph nodes in the left than the right and no lesions in the right breast. She is working with Dr. Watson to develop treatment plan which will include bilateral mastectomy and chemotherapy, possible radiation. Sees Dr. Watson 06/26/20 and also sees a accounts executive that day. Patient reports fatigue, pain in bilateral shoulders, left subaxillary area. Patient is doing some yoga every morning, not doing any other exercise. Stress level high including daughter recently diagnosed with autoimmune disorder. 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 Prior Treatments and Tests diagnostic mammogram, biopsy, breast MRI. PT-OP-C Subjective Start: 06/06/20 15:04 Freq: Status: Active Protocol: Document 08/28/20 09:49 SAK (Rec: 08/28/20 09:57 SAK [id number]) OP-PT Subjective Patient Comments Patient Comments Has had spasm in chest since last session when tried sidelying open book, taking Alleve, has only helped a little. Feels SOB as a result . Fatigued. PT-OP-Q Treatments Start: 06/06/20 15:04 Freq: Status: Active Protocol: Document 08/28/20 09:49 [facility] (Rec: 08/28/20 09:57 [facility] [id number]) Therapeutic Exercises Supine Exercises deep breathing Supine Exercise Name abdominal technique, chest, lateral chest and ribcage Comments manual cues and facil Sidelying Exercises open book Reps/Minutes not done due to spasms Manual Therapy Treatment Soft Tissue Mobilization upper thorax, chest, scar tissue Mobilization Type Myofascial Release,Strumming Intensity/Depth Superficial Body Position Hooklying Comments gentle due to spasms Taping 1 Body Location chest Treatment Focus improve soft tissue mobility, decrease spasm Type of Tape kinesiotape Skin Inspection intact Lymphedema Treatment Manual Lymphatic Drainage Comments sternal and rib techniques bilaterally, deep abdominal breathing PT-OP-R Modalities Start: 06/06/20 15:04 Freq: Status: Active Protocol: Document 08/28/20 09:49 [facility] (Rec: 08/28/20 10:55 [facility] [id number]) Hot Pack/Cold Pack Treatment Hot Pack Location chest Patient Position Hooklying Treatment Duration (minutes) 15 Patient Tolerance Good Comments extra towel layer for gentle heat. PT-OP-T Assessment and Plan Start: 06/06/20 15:04 Freq: Status: Active Protocol: Document 08/28/20 09:49 [facility] (Rec: 08/28/20 09:57 [facility] [id number]) Physical Therapy Assessment Goals Four Impairment soft tissue tightness anterior chest and should and decreased scar mobility Short Term Goal (STG) Patient to be instructed in gentle self-massage as part of her home management 08/05/20: started today with patient demonstrating good understanding STG Duration 08/18/20 Wall Cleaner Goal (LTG) Soft tissue mobility to be WNL including scar mobility anterior chest and shoulders to allow for full function bilateral LE's LTG Duration 09/04/20 Three Impairment pain Care Home Goal (LTG) Patient will be independent with self-management of pain to include relaxation techniques, gentle exercise. 08/05/20: good goal progress following mastectomy has used deep breathing as instructed. LTG Duration 09/08/20 Two Impairment forward head, rounded shoulders Wall Cleaner Goal (LTG) Patient demonstrate good understanding of neutral postural alignment and importance for decreased muscle tension and pain, and be able to self correct with minimal to no cues. 08/05/20: good progress with patient working on postural correction exercises as instructed, gently easing back into them plus gentle yoga at this time LTG Duration 09/04/20 One Impairment low activity tolerance Short Term Goal (STG) Establish HEP to include deep breathing, postural correction , shoulder ROM and strengthening , and walking program. 08/05/20: started prior to mastectomy and gently resumed after mastectomy, good progress. Will gently progress ther ex as tolerated. STG Duration 07/11/20 Care Home Goal (LTG) Patient will be compliant with walking program 4x/wk and HEP and demonstrate shoulder ROM and strength WNL. 08/05/20: again,patient gently resuming HEP as instructed. ROM 75% LTG Duration 09/04/20 Assessment Summary Assessment Some improvement soft tissue mobility and decreased spasms after treatment. Kinesiotape trial for scar mobility, skin lift, muscular inhitition; patient demonstrated good understanding of removing if uncomfortable, itchy. Remove in 3 days to check skin. Also issued foam chip bag to wear under compression shirt which she has obtained but not tried on yet. Small scab left surgical scar remains. Decreased exercise tolerance and activity tolerance today, planning to not go to work. Physical Therapy Plan Frequency and Duration Frequency of Treatment 2x/Week Duration of Treatment 4 weeks Plan of Care Start Date 08/05/20 Plan of Care End Date 09/04/20 Therapeutic Interventions Therapeutic Interventions Home Exercise Program,Patient/ Caregiver Education,Self-Care/ Home Management,Therapeutic Activities,Therapeutic Exercises Modalities Hot Packs Next Visit Focus/Plan Next Note Type Treatment Note Next Visit Plan Assess response to today's treatment including kinesiotape and chip bag, fit of compression shirt. Had planned to decrease frequency to 1x/wk but recommend continued 2x/wk at this time due to spasms, decreased activity and exercise tolerance.
--- NOTE | 2020-09-05 16:00 | PT.OTRE ---
Current Diagnoses Intraductal carcinoma in situ of left breast (09/12/20) Soft tissue disorder, unspecified (09/12/20) Weakness (09/12/20) Other malaise (09/12/20) Past Medical History (Last Reviewed 12/12/19 @ 13:22 by Jalil Pineda DO) Acne (2011) Animal dander allergy Back fracture (1999) Chicken pox (1972) Chronic back pain (1999) Clavicle fracture (1999) Cow's milk protein allergy Eczema (1998) 5 Joint pain (1978) Neuropathy (1999) Normal Papanicolaou smear Presence of intrauterine contraceptive device (10/07/17) PTSD (post-traumatic stress disorder) (1999) Reactive airway disease (1989) Recurrent anxiety (1999) Recurrent major depressive disorder, in remission (12/04/15) Right hand pain (2012) Seasonal allergic rhinitis due to pollen (1971) Shoulder pain Surgical History (Last Reviewed 12/12/19 @ 13:22 by Jalil Pineda DO) History of shoulder surgery Visit Care Team Role Provider Type Clara Mendoza DO Attending Provider Physician Family Provider Primary Care Provider Referring Provider Specialty: Family Practice Address: [address] [place] [address], [address], [facility] Email: [email or web address] Physical Therapy Re-Evaluation PT-OP-A Visit Information Start: 06/06/20 15:04 Freq: Status: Active Protocol: Document 09/12/20 15:12 SAK (Rec: 09/12/20 15:23 SAK [id number]) Out-Patient Physical Therapy Visit Information Visit Information Visit Type Treatment Note Visit Start Time 15:19 Visit Stop Time 16:21 Total Visit Minutes 62 Visit Number 15 Precautions Precautions PMH: neck pain s/p whiplash; MRI 02/19/20: 1. Most significant findings are at C5-C6. There is mild canal stenosis. There is severe right and moderate left foraminal narrowing. 2. Multilevel facet arthropathy Depression, anxiety: sees counselor History left clavicle fracture , back pain, PTSD PT-OP-B Current Condition Start: 06/06/20 15:04 Freq: Status: Active Protocol: Document 09/09/20 13:56 SAK (Rec: 09/09/20 14:03 SAK [id number]) Current Condition History of Current Condition Onset Date 03/21/20 Current Complaints fatigue, pain, breast CA diagnosis History of Current Condition DCIS diagnosed in all samples from a left breast biopsy in March. Subsequent MRI showed some assymetry between the lymph nodes in the left than the right and no lesions in the right breast. She is working with Dr. Watson to develop treatment plan which will include bilateral mastectomy and chemotherapy, possible radiation. Sees Dr. Watson 06/26/20 and also sees a switch crew supervisor that day. Patient reports fatigue, pain in bilateral shoulders, left subaxillary area. Patient is doing some yoga every morning, not doing any other exercise. Stress level high including daughter recently diagnosed with autoimmune disorder. 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 Prior Treatments and Tests diagnostic mammogram, biopsy, breast MRI. PT-OP-C Subjective Start: 06/06/20 15:04 Freq: Status: Active Protocol: Document 09/12/20 15:12 [facility] (Rec: 09/12/20 15:23 [facility] [id number]) OP-PT Subjective Patient Comments Patient Comments Reports minimal pain with modified kinesiotape last session, bought her own kinesiotape, hasn't come yet. Increased pain when removed kinesiotape. Able to walk 15 blocks today, much improved. PT-OP-Q Treatments Start: 06/06/20 15:04 Freq: Status: Active Protocol: Document 09/12/20 15:12 [facility] (Rec: 09/12/20 15:23 [facility] [id number]) Therapeutic Exercises Supine Exercises deep breathing Supine Exercise Name abdominal technique, chest, lateral chest and ribcage Comments manual cues and facil Manual Therapy Treatment Soft Tissue Mobilization upper thorax, chest, scar tissue Mobilization Type Myofascial Release,Strumming Intensity/Depth Moderate Body Position Hooklying Taping 1 Body Location chest: scars and inferior to scar crossing midline Treatment Focus improve soft tissue mobility, decrease spasm, swelling Type of Tape kinesiotape Skin Inspection intact Comments I strip across both scars and central chest 2 fan strips starting lateral thorax and overlapping mid chest below incisions/scars Lymphedema Treatment Manual Lymphatic Drainage Comments sternal and rib techniques bilaterally, deep abdominal breathing PT-OP-R Modalities Start: 06/06/20 15:04 Freq: Status: Active Protocol: Document 09/12/20 15:12 SAK (Rec: 09/12/20 15:23 SAK [id number]) Hot Pack/Cold Pack Treatment Hot Pack Location chest Patient Position Hooklying Treatment Duration (minutes) 15 Patient Tolerance Good Comments extra towel layer for gentle heat. PT-OP-T Assessment and Plan Start: 06/06/20 15:04 Freq: Status: Active Protocol: Document 09/12/20 15:12 [facility] (Rec: 09/12/20 15:23 [facility] [id number]) Physical Therapy Assessment Goals Four Impairment soft tissue tightness anterior chest and should and decreased scar mobility Short Term Goal (STG) Patient to be instructed in gentle self-massage as part of her home management 08/05/20: started today with patient demonstrating good understanding STG Duration 10/16/20 Snf Goal (LTG) Soft tissue mobility to be WNL including scar mobility anterior chest and shoulders to allow for full function bilateral LE's LTG Duration Three Impairment pain Retort Cooler Goal (LTG) Patient will be independent with self-management of pain to include relaxation techniques, gentle exercise. 08/05/20: good goal progress following mastectomy has used deep breathing as instructed. LTG Duration 11/05/20 Two Impairment forward head, rounded shoulders Retort Cooler Goal (LTG) Patient demonstrate good understanding of neutral postural alignment and importance for decreased muscle tension and pain, and be able to self correct with minimal to no cues. 08/05/20: good progress with patient working on postural correction exercises as instructed, gently easing back into them plus gentle yoga at this time LTG Duration 11/05/20 One Impairment low activity tolerance Short Term Goal (STG) Establish HEP to include deep breathing, postural correction , shoulder ROM and strengthening , and walking program. 08/05/20: started prior to mastectomy and gently resumed after mastectomy, good progress. Will gently progress ther ex as tolerated. STG Duration 10/16/20 Retort Cooler Goal (LTG) Patient will be compliant with walking program 4x/wk and HEP and demonstrate shoulder ROM and strength WNL. 08/05/20: again,patient gently resuming HEP as instructed. ROM 75% LTG Duration 11/05/20 Assessment Summary Assessment No kinesiotape for 2 days due to removal at home and noted increase in tenderness and increased scar tissue tightness Physical Therapy Plan Frequency and Duration Frequency of Treatment 2x/Week Duration of Treatment 4 weeks Plan of Care Start Date 09/05/20 Plan of Care End Date 11/05/20 Therapeutic Interventions Therapeutic Interventions Home Exercise Program,Patient/ Caregiver Education,Self-Care/ Home Management,Therapeutic Activities,Therapeutic Exercises Modalities Hot Packs Next Visit Focus/Plan Next Note Type Treatment Note Next Visit Plan Continue PT per POC with manual techniques (patient highly compliant to HEP on own ) to improve soft tissue mobility and decrease pain and tightness as well as mobilize lymphatic fluid. Further discussion about use of compression shirt and chip bag or swell spot.
--- NOTE | 2020-09-05 16:00 | PT.OPPOC ---
Physical, Occupational & Speech Therapy At [facility] Current Diagnoses Intraductal carcinoma in situ of left breast (09/12/20) Soft tissue disorder, unspecified (09/12/20) Weakness (09/12/20) Other malaise (09/12/20) Visit Care Team Role Provider Type Clara Mendoza DO Attending Provider Physician Family Provider Primary Care Provider Referring Provider Specialty: Family Practice Address: [address] [place] [address], [facility] [address], [place], [address] Email: [email or web address] Plan Of Care PT-OP-T Assessment and Plan Start: 06/06/20 15:04 Freq: Status: Active Protocol: Document 09/12/20 15:12 [facility] (Rec: 09/12/20 15:23 SAK [id number]) Physical Therapy Assessment Goals Four Impairment soft tissue tightness anterior chest and should and decreased scar mobility Short Term Goal (STG) Patient to be instructed in gentle self-massage as part of her home management 08/05/20: started today with patient demonstrating good understanding STG Duration 10/16/20 Operator Prefinish Goal (LTG) Soft tissue mobility to be WNL including scar mobility anterior chest and shoulders to allow for full function bilateral LE's LTG Duration Three Impairment pain Operator Prefinish Goal (LTG) Patient will be independent with self-management of pain to include relaxation techniques, gentle exercise. 08/05/20: good goal progress following mastectomy has used deep breathing as instructed. LTG Duration 11/05/20 Two Impairment forward head, rounded shoulders Mcfp Goal (LTG) Patient demonstrate good understanding of neutral postural alignment and importance for decreased muscle tension and pain, and be able to self correct with minimal to no cues. 08/05/20: good progress with patient working on postural correction exercises as instructed, gently easing back into them plus gentle yoga at this time LTG Duration 11/05/20 One Impairment low activity tolerance Short Term Goal (STG) Establish HEP to include deep breathing, postural correction , shoulder ROM and strengthening , and walking program. 08/05/20: started prior to mastectomy and gently resumed after mastectomy, good progress. Will gently progress ther ex as tolerated. STG Duration 10/16/20 Operator Prefinish Goal (LTG) Patient will be compliant with walking program 4x/wk and HEP and demonstrate shoulder ROM and strength WNL. 08/05/20: again,patient gently resuming HEP as instructed. ROM 75% LTG Duration 11/05/20 Assessment Summary Assessment No kinesiotape for 2 days due to removal at home and noted increase in tenderness and increased scar tissue tightness Physical Therapy Plan Frequency and Duration Frequency of Treatment 2x/Week Duration of Treatment 4 weeks Plan of Care Start Date 09/05/20 Plan of Care End Date 11/05/20 Therapeutic Interventions Therapeutic Interventions Home Exercise Program,Patient/ Caregiver Education,Self-Care/ Home Management,Therapeutic Activities,Therapeutic Exercises Modalities Hot Packs Next Visit Focus/Plan Next Note Type Treatment Note Next Visit Plan Continue PT per POC with manual techniques (patient highly compliant to HEP on own ) to improve soft tissue mobility and decrease pain and tightness as well as mobilize lymphatic fluid. Further discussion about use of compression shirt and chip bag or swell spot. Plan of Care Dates Plan of Care Start Date 09/05/20 Plan of Care End Date 11/05/20 Electronically Signed by: Carolina Subramanian, PT 09/16/20 1053 Please Sign and Return: I have reviewed this Plan of Care and certify that the skilled therapy services above are required to meet the patient?s needs. Physician Signature Date Printed Name and Credentials Clinical Instructor Signature Printed Name and Credentials
--- NOTE | 2020-09-05 16:38 | PT.OTN ---
Current Diagnoses Intraductal carcinoma in situ of left breast (09/05/20) Soft tissue disorder, unspecified (09/05/20) Weakness (09/05/20) Other malaise (09/05/20) Physical Therapy Treatment Note PT-OP-A Visit Information Start: 06/06/20 15:04 Freq: Status: Active Protocol: Document 09/05/20 15:18 SAK (Rec: 09/05/20 16:38 SAK [id number]) Out-Patient Physical Therapy Visit Information Visit Information Visit Type Treatment Note Visit Start Time 15:15 Visit Stop Time 16:15 Total Visit Minutes 60 Visit Number 13 Precautions Precautions PMH: neck pain s/p whiplash; MRI 02/19/20: 1. Most significant findings are at C5-C6. There is mild canal stenosis. There is severe right and moderate left foraminal narrowing. 2. Multilevel facet arthropathy Depression, anxiety: sees counselor History left clavicle fracture , back pain, PTSD PT-OP-B Current Condition Start: 06/06/20 15:04 Freq: Status: Active Protocol: Document 09/05/20 15:18 SAK (Rec: 09/05/20 16:38 SAK [id number]) Current Condition History of Current Condition Onset Date 03/21/20 Current Complaints fatigue, pain, breast CA diagnosis History of Current Condition DCIS diagnosed in all samples from a left breast biopsy in March. Subsequent MRI showed some assymetry between the lymph nodes in the left than the right and no lesions in the right breast. She is working with Dr. Watson to develop treatment plan which will include bilateral mastectomy and chemotherapy, possible radiation. Sees Dr. Watson 06/26/20 and also sees a book cleaner that day. Patient reports fatigue, pain in bilateral shoulders, left subaxillary area. Patient is doing some yoga every morning, not doing any other exercise. Stress level high including daughter recently diagnosed with autoimmune disorder. 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 Prior Treatments and Tests diagnostic mammogram, biopsy, breast MRI. PT-OP-C Subjective Start: 06/06/20 15:04 Freq: Status: Active Protocol: Document 09/05/20 15:18 SAK (Rec: 09/05/20 16:38 SAK [id number]) OP-PT Subjective Patient Comments Patient Comments Less spasms , kinesiotape helpful in smoothing out scars and helping with spasms. Reports Naltraxone bokassieoo, figured out she was taking triple the dose due to change in pill dosage, that's what was causing her SOB, fatigue. Doing gentle yoga every morning, compliant to HEP. PT-OP-Q Treatments Start: 06/06/20 15:04 Freq: Status: Active Protocol: Document 09/05/20 15:18 [facility] (Rec: 09/05/20 16:38 [facility] [id number]) Therapeutic Exercises Supine Exercises deep breathing Supine Exercise Name abdominal technique, chest, lateral chest and ribcage Comments manual cues and facil Manual Therapy Treatment Soft Tissue Mobilization upper thorax, chest, scar tissue Mobilization Type Myofascial Release,Strumming Intensity/Depth Superficial Body Position Hooklying Comments gentle due to spasms Taping 1 Body Location chest Treatment Focus improve soft tissue mobility, decrease spasm Type of Tape kinesiotape Skin Inspection intact Lymphedema Treatment Manual Lymphatic Drainage Comments sternal and rib techniques bilaterally, deep abdominal breathing PT-OP-R Modalities Start: 06/06/20 15:04 Freq: Status: Active Protocol: Document 09/05/20 15:18 [facility] (Rec: 09/05/20 16:38 [facility] [id number]) Hot Pack/Cold Pack Treatment Hot Pack Location chest Patient Position Hooklying Treatment Duration (minutes) 15 Patient Tolerance Good Comments extra towel layer for gentle heat. PT-OP-T Assessment and Plan Start: 06/06/20 15:04 Freq: Status: Active Protocol: Document 09/05/20 15:18 [facility] (Rec: 09/05/20 16:38 [facility] [id number]) Physical Therapy Assessment Goals Four Impairment soft tissue tightness anterior chest and should and decreased scar mobility Short Term Goal (STG) Patient to be instructed in gentle self-massage as part of her home management 08/05/20: started today with patient demonstrating good understanding STG Duration 08/18/20 Dismantler Goal (LTG) Soft tissue mobility to be WNL including scar mobility anterior chest and shoulders to allow for full function bilateral LE's LTG Duration 09/04/20 Three Impairment pain Dismantler Goal (LTG) Patient will be independent with self-management of pain to include relaxation techniques, gentle exercise. 08/05/20: good goal progress following mastectomy has used deep breathing as instructed. LTG Duration 09/08/20 Two Impairment forward head, rounded shoulders Prison Goal (LTG) Patient demonstrate good understanding of neutral postural alignment and importance for decreased muscle tension and pain, and be able to self correct with minimal to no cues. 08/05/20: good progress with patient working on postural correction exercises as instructed, gently easing back into them plus gentle yoga at this time LTG Duration 09/04/20 One Impairment low activity tolerance Short Term Goal (STG) Establish HEP to include deep breathing, postural correction , shoulder ROM and strengthening , and walking program. 08/05/20: started prior to mastectomy and gently resumed after mastectomy, good progress. Will gently progress ther ex as tolerated. STG Duration 07/11/20 Prison Goal (LTG) Patient will be compliant with walking program 4x/wk and HEP and demonstrate shoulder ROM and strength WNL. 08/05/20: again,patient gently resuming HEP as instructed. ROM 75% LTG Duration 09/04/20 Assessment Summary Assessment Continues to improve with soft tissue mobility, shoulder ROM and function. Kinesiotape helpful in improving soft tissue mobility of scar and flattending of scar. Physical Therapy Plan Frequency and Duration Frequency of Treatment 2x/Week Duration of Treatment 4 weeks Plan of Care Start Date 08/05/20 Plan of Care End Date 09/04/20 Therapeutic Interventions Therapeutic Interventions Home Exercise Program,Patient/ Caregiver Education,Self-Care/ Home Management,Therapeutic Activities,Therapeutic Exercises Modalities Hot Packs Next Visit Focus/Plan Next Note Type Treatment Note Next Visit Plan Continue PT to improve ROM, soft tissue mobility of scar and chest wall, and shoulder ROM
--- NOTE | 2020-09-09 16:45 | PT.OTN ---
Current Diagnoses Intraductal carcinoma in situ of left breast (09/09/20) Soft tissue disorder, unspecified (09/09/20) Weakness (09/09/20) Other malaise (09/09/20) Physical Therapy Treatment Note PT-OP-A Visit Information Start: 06/06/20 15:04 Freq: Status: Active Protocol: Document 09/09/20 13:56 SAK (Rec: 09/09/20 14:03 SAK [id number]) Out-Patient Physical Therapy Visit Information Visit Information Visit Type Treatment Note Visit Start Time 13:50 Visit Stop Time 14:35 Total Visit Minutes 60 Visit Number 14 Precautions Precautions PMH: neck pain s/p whiplash; MRI 02/19/20: 1. Most significant findings are at C5-C6. There is mild canal stenosis. There is severe right and moderate left foraminal narrowing. 2. Multilevel facet arthropathy Depression, anxiety: sees counselor History left clavicle fracture , back pain, PTSD PT-OP-B Current Condition Start: 06/06/20 15:04 Freq: Status: Active Protocol: Document 09/09/20 13:56 SAK (Rec: 09/09/20 14:03 SAK [id number]) Current Condition History of Current Condition Onset Date 03/21/20 Current Complaints fatigue, pain, breast CA diagnosis History of Current Condition DCIS diagnosed in all samples from a left breast biopsy in March. Subsequent MRI showed some assymetry between the lymph nodes in the left than the right and no lesions in the right breast. She is working with Dr. Watson to develop treatment plan which will include bilateral mastectomy and chemotherapy, possible radiation. Sees Dr. Watson 06/26/20 and also sees a fund accounting manager that day. Patient reports fatigue, pain in bilateral shoulders, left subaxillary area. Patient is doing some yoga every morning, not doing any other exercise. Stress level high including daughter recently diagnosed with autoimmune disorder. 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 Prior Treatments and Tests diagnostic mammogram, biopsy, breast MRI. PT-OP-C Subjective Start: 06/06/20 15:04 Freq: Status: Active Protocol: Document 09/09/20 13:56 SAK (Rec: 09/09/20 14:03 SAK [id number]) OP-PT Subjective Patient Comments Patient Comments Continues to tolerate kinesiotape well, improved tolerance more quickly today. Did gentle yoga, exercise bike, and short walk around block, started to feel some pain in chest during walk, but realizes in telling PT that she increased her weight with chest press. PT-OP-Q Treatments Start: 06/06/20 15:04 Freq: Status: Active Protocol: Document 09/09/20 13:56 [facility] (Rec: 09/09/20 14:03 [facility] [id number]) Therapeutic Exercises Supine Exercises deep breathing Supine Exercise Name abdominal technique, chest, lateral chest and ribcage Comments manual cues and facil Manual Therapy Treatment Soft Tissue Mobilization upper thorax, chest, scar tissue Mobilization Type Myofascial Release,Strumming Intensity/Depth Moderate Body Position Hooklying Taping 1 Body Location chest: scars and inferior to scar Treatment Focus improve soft tissue mobility, decrease spasm, swelling Type of Tape kinesiotape Skin Inspection intact Lymphedema Treatment Manual Lymphatic Drainage Comments sternal and rib techniques bilaterally, deep abdominal breathing PT-OP-R Modalities Start: 06/06/20 15:04 Freq: Status: Active Protocol: Document 09/09/20 13:56 [facility] (Rec: 09/09/20 16:45 [facility] [id number]) Hot Pack/Cold Pack Treatment Hot Pack Location chest Patient Position Hooklying Treatment Duration (minutes) 15 Patient Tolerance Good Comments extra towel layer for gentle heat. PT-OP-T Assessment and Plan Start: 06/06/20 15:04 Freq: Status: Active Protocol: Document 09/09/20 13:56 [facility] (Rec: 09/09/20 14:03 [facility] [id number]) Physical Therapy Assessment Goals Four Impairment soft tissue tightness anterior chest and should and decreased scar mobility Short Term Goal (STG) Patient to be instructed in gentle self-massage as part of her home management 08/05/20: started today with patient demonstrating good understanding STG Duration 08/18/20 Interventional Radiology Rn Goal (LTG) Soft tissue mobility to be WNL including scar mobility anterior chest and shoulders to allow for full function bilateral LE's LTG Duration 09/04/20 Three Impairment pain Interventional Radiology Rn Goal (LTG) Patient will be independent with self-management of pain to include relaxation techniques, gentle exercise. 08/05/20: good goal progress following mastectomy has used deep breathing as instructed. LTG Duration 09/08/20 Two Impairment forward head, rounded shoulders Interventional Radiology Rn Goal (LTG) Patient demonstrate good understanding of neutral postural alignment and importance for decreased muscle tension and pain, and be able to self correct with minimal to no cues. 08/05/20: good progress with patient working on postural correction exercises as instructed, gently easing back into them plus gentle yoga at this time LTG Duration 09/04/20 One Impairment low activity tolerance Short Term Goal (STG) Establish HEP to include deep breathing, postural correction , shoulder ROM and strengthening , and walking program. 08/05/20: started prior to mastectomy and gently resumed after mastectomy, good progress. Will gently progress ther ex as tolerated. STG Duration 07/11/20 Usp Goal (LTG) Patient will be compliant with walking program 4x/wk and HEP and demonstrate shoulder ROM and strength WNL. 08/05/20: again,patient gently resuming HEP as instructed. ROM 75% LTG Duration 09/04/20 Assessment Summary Assessment Improved scar mobility, most discomfort is in submammmary region below scars which has been swollen since surgery, sternal region also; treating with MLD techniques. Performed trial kinesiotape with fan techniques submammary area toward lateral trunk Physical Therapy Plan Frequency and Duration Frequency of Treatment 2x/Week Duration of Treatment 4 weeks Plan of Care Start Date 08/05/20 Plan of Care End Date 09/04/20 Therapeutic Interventions Therapeutic Interventions Home Exercise Program,Patient/ Caregiver Education,Self-Care/ Home Management,Therapeutic Activities,Therapeutic Exercises Modalities Hot Packs Next Visit Focus/Plan Next Note Type Treatment Note Next Visit Plan Assess response to additional kinesiotape. Continue to monitor for any other evidence of edema. Continue PT per POC to improve shoulder ROM, soft tissue mobility for scar and chest.
--- NOTE | 2020-09-12 16:41 | PT.OTN ---
Current Diagnoses Intraductal carcinoma in situ of left breast (09/12/20) Soft tissue disorder, unspecified (09/12/20) Weakness (09/12/20) Other malaise (09/12/20) Physical Therapy Treatment Note PT-OP-A Visit Information Start: 06/06/20 15:04 Freq: Status: Active Protocol: Document 09/12/20 15:12 SAK (Rec: 09/12/20 15:23 SAK [id number]) Out-Patient Physical Therapy Visit Information Visit Information Visit Type Treatment Note Visit Start Time 15:19 Visit Stop Time 16:21 Total Visit Minutes 62 Visit Number 15 Precautions Precautions PMH: neck pain s/p whiplash; MRI 02/19/20: 1. Most significant findings are at C5-C6. There is mild canal stenosis. There is severe right and moderate left foraminal narrowing. 2. Multilevel facet arthropathy Depression, anxiety: sees counselor History left clavicle fracture , back pain, PTSD PT-OP-B Current Condition Start: 06/06/20 15:04 Freq: Status: Active Protocol: Document 09/09/20 13:56 SAK (Rec: 09/09/20 14:03 SAK [id number]) Current Condition History of Current Condition Onset Date 03/21/20 Current Complaints fatigue, pain, breast CA diagnosis History of Current Condition DCIS diagnosed in all samples from a left breast biopsy in March. Subsequent MRI showed some assymetry between the lymph nodes in the left than the right and no lesions in the right breast. She is working with Dr. Watson to develop treatment plan which will include bilateral mastectomy and chemotherapy, possible radiation. Sees Dr. Watson 06/26/20 and also sees a adjuster electrical contacts that day. Patient reports fatigue, pain in bilateral shoulders, left subaxillary area. Patient is doing some yoga every morning, not doing any other exercise. Stress level high including daughter recently diagnosed with autoimmune disorder. 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 Prior Treatments and Tests diagnostic mammogram, biopsy, breast MRI. PT-OP-C Subjective Start: 06/06/20 15:04 Freq: Status: Active Protocol: Document 09/12/20 15:12 SAK (Rec: 09/12/20 15:23 SAK [id number]) OP-PT Subjective Patient Comments Patient Comments Reports minimal pain with modified kinesiotape last session, bought her own kinesiotape, hasn't come yet. Increased pain when removed kinesiotape. Able to walk 15 blocks today, much improved. PT-OP-Q Treatments Start: 06/06/20 15:04 Freq: Status: Active Protocol: Document 09/12/20 15:12 [facility] (Rec: 09/12/20 15:23 [facility] [id number]) Therapeutic Exercises Supine Exercises deep breathing Supine Exercise Name abdominal technique, chest, lateral chest and ribcage Comments manual cues and facil Manual Therapy Treatment Soft Tissue Mobilization upper thorax, chest, scar tissue Mobilization Type Myofascial Release,Strumming Intensity/Depth Moderate Body Position Hooklying Taping 1 Body Location chest: scars and inferior to scar crossing midline Treatment Focus improve soft tissue mobility, decrease spasm, swelling Type of Tape kinesiotape Skin Inspection intact Comments I strip across both scars and central chest 2 fan strips starting lateral thorax and overlapping mid chest below incisions/scars Lymphedema Treatment Manual Lymphatic Drainage Comments sternal and rib techniques bilaterally, deep abdominal breathing PT-OP-R Modalities Start: 06/06/20 15:04 Freq: Status: Active Protocol: Document 09/12/20 15:12 [facility] (Rec: 09/12/20 15:23 [facility] [id number]) Hot Pack/Cold Pack Treatment Hot Pack Location chest Patient Position Hooklying Treatment Duration (minutes) 15 Patient Tolerance Good Comments extra towel layer for gentle heat. PT-OP-T Assessment and Plan Start: 06/06/20 15:04 Freq: Status: Active Protocol: Document 09/12/20 15:12 [facility] (Rec: 09/12/20 15:23 [facility] [id number]) Physical Therapy Assessment Goals Four Impairment soft tissue tightness anterior chest and should and decreased scar mobility Short Term Goal (STG) Patient to be instructed in gentle self-massage as part of her home management 08/05/20: started today with patient demonstrating good understanding STG Duration 08/18/20 Residential Goal (LTG) Soft tissue mobility to be WNL including scar mobility anterior chest and shoulders to allow for full function bilateral LE's LTG Duration 09/04/20 Three Impairment pain Residential Goal (LTG) Patient will be independent with self-management of pain to include relaxation techniques, gentle exercise. 08/05/20: good goal progress following mastectomy has used deep breathing as instructed. LTG Duration 09/08/20 Two Impairment forward head, rounded shoulders Residential Goal (LTG) Patient demonstrate good understanding of neutral postural alignment and importance for decreased muscle tension and pain, and be able to self correct with minimal to no cues. 08/05/20: good progress with patient working on postural correction exercises as instructed, gently easing back into them plus gentle yoga at this time LTG Duration 09/04/20 One Impairment low activity tolerance Short Term Goal (STG) Establish HEP to include deep breathing, postural correction , shoulder ROM and strengthening , and walking program. 08/05/20: started prior to mastectomy and gently resumed after mastectomy, good progress. Will gently progress ther ex as tolerated. STG Duration 07/11/20 Process Control Tech Goal (LTG) Patient will be compliant with walking program 4x/wk and HEP and demonstrate shoulder ROM and strength WNL. 08/05/20: again,patient gently resuming HEP as instructed. ROM 75% LTG Duration 09/04/20 Assessment Summary Assessment No kinesiotape for 2 days due to removal at home and noted increase in tenderness and increased scar tissue tightness Physical Therapy Plan Frequency and Duration Frequency of Treatment 2x/Week Duration of Treatment 4 weeks Plan of Care Start Date 08/05/20 Plan of Care End Date 09/04/20 Therapeutic Interventions Therapeutic Interventions Home Exercise Program,Patient/ Caregiver Education,Self-Care/ Home Management,Therapeutic Activities,Therapeutic Exercises Modalities Hot Packs Next Visit Focus/Plan Next Note Type Treatment Note Next Visit Plan Continue PT per POC with manual techniques (patient highly compliant to HEP on own ) to improve soft tissue mobility and decrease pain and tightness as well as mobilize lymphatic fluid. Further discussion about use of compression shirt and chip bag or swell spot.
--- NOTE | 2020-09-16 15:39 | PT.OTN ---
Current Diagnoses Intraductal carcinoma in situ of left breast (09/16/20) Soft tissue disorder, unspecified (09/16/20) Weakness (09/16/20) Other malaise (09/16/20) Physical Therapy Treatment Note PT-OP-A Visit Information Start: 06/06/20 15:04 Freq: Status: Active Protocol: Document 09/16/20 14:36 SAK (Rec: 09/16/20 14:42 SAK [id number]) Out-Patient Physical Therapy Visit Information Visit Information Visit Type Treatment Note Visit Start Time 15:19 Visit Stop Time 16:21 Total Visit Minutes 62 Visit Number 16 Precautions Precautions PMH: neck pain s/p whiplash; MRI 02/19/20: 1. Most significant findings are at C5-C6. There is mild canal stenosis. There is severe right and moderate left foraminal narrowing. 2. Multilevel facet arthropathy Depression, anxiety: sees counselor History left clavicle fracture , back pain, PTSD PT-OP-B Current Condition Start: 06/06/20 15:04 Freq: Status: Active Protocol: Document 09/09/20 13:56 SAK (Rec: 09/09/20 14:03 SAK [id number]) Current Condition History of Current Condition Onset Date 03/21/20 Current Complaints fatigue, pain, breast CA diagnosis History of Current Condition DCIS diagnosed in all samples from a left breast biopsy in March. Subsequent MRI showed some assymetry between the lymph nodes in the left than the right and no lesions in the right breast. She is working with Dr. Watson to develop treatment plan which will include bilateral mastectomy and chemotherapy, possible radiation. Sees Dr. Watson 06/26/20 and also sees a mining support worker that day. Patient reports fatigue, pain in bilateral shoulders, left subaxillary area. Patient is doing some yoga every morning, not doing any other exercise. Stress level high including daughter recently diagnosed with autoimmune disorder. 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 Prior Treatments and Tests diagnostic mammogram, biopsy, breast MRI. PT-OP-C Subjective Start: 06/06/20 15:04 Freq: Status: Active Protocol: Document 09/16/20 14:36 SAK (Rec: 09/16/20 14:42 SAK [id number]) OP-PT Subjective Patient Comments Patient Comments Took tape off Wednesday night, has had to give skin a break, states soft tissue relaxed and has stayed more relaxed even after taking kinesiotape off. Took more of meditation walk more relaxation than distance motivated. PT-OP-Q Treatments Start: 06/06/20 15:04 Freq: Status: Active Protocol: Document 09/16/20 14:36 [facility] (Rec: 09/16/20 14:42 [facility] [id number]) Therapeutic Exercises Supine Exercises deep breathing Supine Exercise Name abdominal technique, chest, lateral chest and ribcage Comments manual cues and facil pec stretch Reps/Minutes 2x 30 Manual Therapy Treatment Soft Tissue Mobilization upper thorax, chest, scar tissue Mobilization Type Myofascial Release,Strumming Intensity/Depth Moderate Body Position Hooklying Taping 1 Body Location chest: subaxillary and lateral left thorax Treatment Focus improve soft tissue mobility, decrease spasm, swelling Type of Tape kinesiotape Skin Inspection intact Comments 1 fan strip subaxillary with base at thoracic spine Lymphedema Treatment Manual Lymphatic Drainage Location anterior chest Comments sternal and rib techniques bilaterally, deep abdominal breathing PT-OP-R Modalities Start: 06/06/20 15:04 Freq: Status: Active Protocol: Document 09/16/20 14:36 [facility] (Rec: 09/16/20 15:39 [facility] [id number]) Hot Pack/Cold Pack Treatment Hot Pack Location chest Patient Position Hooklying Treatment Duration (minutes) 15 Patient Tolerance Good Comments extra towel layer for gentle heat. PT-OP-T Assessment and Plan Start: 06/06/20 15:04 Freq: Status: Active Protocol: Document 09/16/20 14:36 [facility] (Rec: 09/16/20 14:42 [facility] [id number]) Physical Therapy Assessment Goals Four Impairment soft tissue tightness anterior chest and should and decreased scar mobility Short Term Goal (STG) Patient to be instructed in gentle self-massage as part of her home management 08/05/20: started today with patient demonstrating good understanding STG Duration 10/16/20 [facility] Goal (LTG) Soft tissue mobility to be WNL including scar mobility anterior chest and shoulders to allow for full function bilateral LE's LTG Duration Three Impairment pain [address] Associate Justice Goal (LTG) Patient will be independent with self-management of pain to include relaxation techniques, gentle exercise. 08/05/20: good goal progress following mastectomy has used deep breathing as instructed. LTG Duration 11/05/20 Two Impairment forward head, rounded shoulders [employer] [facility] Associate Justice Goal (LTG) Patient demonstrate good understanding of neutral postural alignment and importance for decreased muscle tension and pain, and be able to self correct with minimal to no cues. 08/05/20: good progress with patient working on postural correction exercises as instructed, gently easing back into them plus gentle yoga at this time LTG Duration 11/05/20 One Impairment low activity tolerance Short Term Goal (STG) Establish HEP to include deep breathing, postural correction , shoulder ROM and strengthening , and walking program. 08/05/20: started prior to mastectomy and gently resumed after mastectomy, good progress. Will gently progress ther ex as tolerated. STG Duration 10/16/[address] Justice Goal (LTG) Patient will be compliant with walking program 4x/wk and HEP and demonstrate shoulder ROM and strength WNL. 08/05/20: again,patient gently resuming HEP as instructed. ROM 75% LTG Duration 11/05/20 Assessment Summary Assessment Again no kinesiotape for a couple days but reports increased tenderness and scar tissue tightness not as noticable as previously. chest and scar not taped today due to some irritation, subaxillary region left taped today due to soreness. Patient advised to try wearing compression shirt and chip bags to scar, submammary region. Tolerating increased scar mobilization well. Physical Therapy Plan Frequency and Duration Frequency of Treatment 2x/Week Duration of Treatment 4 weeks Plan of Care Start Date 09/05/20 Plan of Care End Date 11/05/20 Therapeutic Interventions Therapeutic Interventions Home Exercise Program,Patient/ Caregiver Education,Self-Care/ Home Management,Therapeutic Activities,Therapeutic Exercises Modalities Hot Packs Next Visit Focus/Plan Next Note Type Treatment Note Next Visit Plan Assess response to chip bags and compression shirt. Continue PT with emphasis on manual techniques to improve soft tissue, scar mobility anterior chest bilaterally.
--- NOTE | 2020-09-19 15:58 | PT.OTN ---
Current Diagnoses Intraductal carcinoma in situ of left breast (09/19/20) Soft tissue disorder, unspecified (09/19/20) Weakness (09/19/20) Other malaise (09/19/20) Physical Therapy Treatment Note PT-OP-A Visit Information Start: 06/06/20 15:04 Freq: Status: Active Protocol: Document 09/19/20 14:29 SAK (Rec: 09/19/20 14:38 SAK [id number]) Out-Patient Physical Therapy Visit Information Visit Information Visit Type Treatment Note Visit Start Time 14:30 Visit Stop Time 14:30 Total Visit Minutes 60 Visit Number 17 Precautions Precautions PMH: neck pain s/p whiplash; MRI 02/19/20: 1. Most significant findings are at C5-C6. There is mild canal stenosis. There is severe right and moderate left foraminal narrowing. 2. Multilevel facet arthropathy Depression, anxiety: sees counselor History left clavicle fracture , back pain, PTSD PT-OP-B Current Condition Start: 06/06/20 15:04 Freq: Status: Active Protocol: Document 09/09/20 13:56 SAK (Rec: 09/09/20 14:03 SAK [id number]) Current Condition History of Current Condition Onset Date 03/21/20 Current Complaints fatigue, pain, breast CA diagnosis History of Current Condition DCIS diagnosed in all samples from a left breast biopsy in March. Subsequent MRI showed some assymetry between the lymph nodes in the left than the right and no lesions in the right breast. She is working with Dr. Watson to develop treatment plan which will include bilateral mastectomy and chemotherapy, possible radiation. Sees Dr. Watson 06/26/20 and also sees a dehydrogenation operator that day. Patient reports fatigue, pain in bilateral shoulders, left subaxillary area. Patient is doing some yoga every morning, not doing any other exercise. Stress level high including daughter recently diagnosed with autoimmune disorder. 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 Prior Treatments and Tests diagnostic mammogram, biopsy, breast MRI. PT-OP-C Subjective Start: 06/06/20 15:04 Freq: Status: Active Protocol: Document 09/19/20 14:29 SAK (Rec: 09/19/20 14:38 SAK [id number]) OP-PT Subjective Patient Comments Patient Comments States she listened to her body but helped move a small desk, didn't hurt herself. Pleased with ability to do it. Used 5 # for bicep exercises with good tolerance. Wore compression shirt yesterday, decreased soft tissue spasms and pain anterior. Feels the best when laying prone with some pressure against chest. States kinesiotape from axilla across posterior thorax helped improve sensation and decrease pain, no burning. Less grabbing left mastectomy scar though still occasional, minimal stabbing pains right mastectomy scar. Patient Reported Progress Improving PT-OP-Q Treatments Start: 06/06/20 15:04 Freq: Status: Active Protocol: Document 09/19/20 14:29 [facility] (Rec: 09/19/20 14:38 [facility] [id number]) Therapeutic Exercises Supine Exercises deep breathing Supine Exercise Name abdominal technique, chest, lateral chest and ribcage Comments manual cues and facil Manual Therapy Treatment Soft Tissue Mobilization upper thorax, chest, scar tissue Mobilization Type Myofascial Release,Strumming Intensity/Depth Moderate Body Position Hooklying Taping 1 Body Location chest: subaxillary and lateral left thorax Treatment Focus improve soft tissue mobility, decrease spasm, swelling Type of Tape kinesiotape Skin Inspection intact Comments 2 fan strips subaxillary left with base at right posterior thorax, subaxilla, paper off tension 2 fan strips darcy submammary reagion with bases lateral thoraxes, paper off tension 1 X space correction central sternum with 50% stretch 1 I strip each mastectomy scar with paper off tension Lymphedema Treatment Manual Lymphatic Drainage Location anterior chest Comments plus sternal and rib techniques bilaterally, deep abdominal breathing, PT-OP-R Modalities Start: 06/06/20 15:04 Freq: Status: Active Protocol: Document 09/16/20 14:36 [facility] (Rec: 09/16/20 15:39 [facility] [id number]) Hot Pack/Cold Pack Treatment Hot Pack Location chest Patient Position Hooklying Treatment Duration (minutes) 15 Patient Tolerance Good Comments extra towel layer for gentle heat. PT-OP-T Assessment and Plan Start: 06/06/20 15:04 Freq: Status: Active Protocol: Document 09/19/20 14:29 [facility] (Rec: 09/19/20 14:38 [facility] [id number]) Physical Therapy Assessment Goals Four Impairment soft tissue tightness anterior chest and should and decreased scar mobility Short Term Goal (STG) Patient to be instructed in gentle self-massage as part of her home management 08/05/20: started today with patient demonstrating good understanding STG Duration 10/16/20 Autobody Technician Goal (LTG) Soft tissue mobility to be WNL including scar mobility anterior chest and shoulders to allow for full function bilateral LE's LTG Duration Three Impairment pain Long-Term Goal (LTG) Patient will be independent with self-management of pain to include relaxation techniques, gentle exercise. 08/05/20: good goal progress following mastectomy has used deep breathing as instructed. LTG Duration 11/05/20 Two Impairment forward head, rounded shoulders Autobody Technician Goal (LTG) Patient demonstrate good understanding of neutral postural alignment and importance for decreased muscle tension and pain, and be able to self correct with minimal to no cues. 08/05/20: good progress with patient working on postural correction exercises as instructed, gently easing back into them plus gentle yoga at this time LTG Duration 11/05/20 One Impairment low activity tolerance Short Term Goal (STG) Establish HEP to include deep breathing, postural correction , shoulder ROM and strengthening , and walking program. 08/05/20: started prior to mastectomy and gently resumed after mastectomy, good progress. Will gently progress ther ex as tolerated. STG Duration 10/16/20 Long-Term Goal (LTG) Patient will be compliant with walking program 4x/wk and HEP and demonstrate shoulder ROM and strength WNL. 08/05/20: again,patient gently resuming HEP as instructed. ROM 75% LTG Duration 11/05/20 Progress Towards Goals Progress Towards Goals Progressing Toward Goals Assessment Summary Assessment Improving scar tissue mobility and activity tolerance. Tight pec minor left, decreases with treatment. More extensive kinesiotape today per request due to postive response with decrease in pain and spasms, improved mobility and sensation. Physical Therapy Plan Frequency and Duration Frequency of Treatment 2x/Week Duration of Treatment 4 weeks Plan of Care Start Date 09/05/20 Plan of Care End Date 11/05/20 Therapeutic Interventions Therapeutic Interventions Home Exercise Program,Patient/ Caregiver Education,Self-Care/ Home Management,Therapeutic Activities,Therapeutic Exercises Modalities Hot Packs Next Visit Focus/Plan Next Note Type Treatment Note Next Visit Plan Assess response to new taping technique today, continue tentle ther ex progression, ROM, soft tissue mobilization
--- NOTE | 2020-09-23 15:34 | PT.OTN ---
Current Diagnoses Intraductal carcinoma in situ of left breast (09/23/20) Soft tissue disorder, unspecified (09/23/20) Weakness (09/23/20) Other malaise (09/23/20) Physical Therapy Treatment Note PT-OP-A Visit Information Start: 06/06/20 15:04 Freq: Status: Active Protocol: Document 09/23/20 14:30 SAK (Rec: 09/23/20 14:40 SAK [id number]) Out-Patient Physical Therapy Visit Information Visit Information Visit Type Treatment Note Visit Start Time 14:30 Visit Stop Time 14:30 Total Visit Minutes 60 Visit Number 18 Precautions Precautions PMH: neck pain s/p whiplash; MRI 02/19/20: 1. Most significant findings are at C5-C6. There is mild canal stenosis. There is severe right and moderate left foraminal narrowing. 2. Multilevel facet arthropathy Depression, anxiety: sees counselor History left clavicle fracture , back pain, PTSD PT-OP-B Current Condition Start: 06/06/20 15:04 Freq: Status: Active Protocol: Document 09/09/20 13:56 SAK (Rec: 09/09/20 14:03 SAK [id number]) Current Condition History of Current Condition Onset Date 03/21/20 Current Complaints fatigue, pain, breast CA diagnosis History of Current Condition DCIS diagnosed in all samples from a left breast biopsy in March. Subsequent MRI showed some assymetry between the lymph nodes in the left than the right and no lesions in the right breast. She is working with Dr. Watson to develop treatment plan which will include bilateral mastectomy and chemotherapy, possible radiation. Sees Dr. Watson 06/26/20 and also sees a airline reservationist that day. Patient reports fatigue, pain in bilateral shoulders, left subaxillary area. Patient is doing some yoga every morning, not doing any other exercise. Stress level high including daughter recently diagnosed with autoimmune disorder. 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 Prior Treatments and Tests diagnostic mammogram, biopsy, breast MRI. PT-OP-C Subjective Start: 06/06/20 15:04 Freq: Status: Active Protocol: Document 09/23/20 14:30 SAK (Rec: 09/23/20 14:40 SAK [id number]) OP-PT Subjective Patient Comments Patient Comments Says she didn't tolerate having tape on front and back of her body both, took off of back and felet better. Needs break from the tape. Also realizes she is also recovering from helping move a desk. Able to take good walk today (15 blocks) and doing yoga. Pain 2-3/10. Very fatigued. PT-OP-Q Treatments Start: 06/06/20 15:04 Freq: Status: Active Protocol: Document 09/23/20 14:30 [facility] (Rec: 09/23/20 15:33 [facility] [id number]) Therapeutic Exercises Supine Exercises scapular squeeze Reps/Minutes 3x deep breathing Supine Exercise Name abdominal technique, chest, lateral chest and ribcage Comments manual cues and facil pec stretch Reps/Minutes 2x 30 Manual Therapy Treatment Soft Tissue Mobilization upper thorax, chest, scar tissue Mobilization Type Myofascial Release,Strumming Intensity/Depth Moderate Body Position Hooklying Taping 1 Comments not done today Self-Care/Home Management Treatment Education Patient Education Pain Management Other Education issued 2 chip bags for wearing inside compression shirt education on putting tissues on slack, restful position for pain reduction Lymphedema Treatment Manual Lymphatic Drainage Location anterior chest Comments including deep breathing PT-OP-R Modalities Start: 06/06/20 15:04 Freq: Status: Active Protocol: Document 09/23/20 14:30 [facility] (Rec: 09/23/20 15:33 [facility] [id number]) Hot Pack/Cold Pack Treatment Hot Pack Location chest Patient Position Hooklying Treatment Duration (minutes) 15 Patient Tolerance Good Comments extra towel layer for gentle heat. 90/90 position, UE's supported by pillows PT-OP-T Assessment and Plan Start: 06/06/20 15:04 Freq: Status: Active Protocol: Document 09/23/20 14:30 [facility] (Rec: 09/23/20 14:40 [facility] [id number]) Physical Therapy Assessment Goals Four Impairment soft tissue tightness anterior chest and should and decreased scar mobility Short Term Goal (STG) Patient to be instructed in gentle self-massage as part of her home management 08/05/20: started today with patient demonstrating good understanding STG Duration 10/16/20 Shelter Goal (LTG) Soft tissue mobility to be WNL including scar mobility anterior chest and shoulders to allow for full function bilateral LE's LTG Duration Three Impairment pain Shelter Goal (LTG) Patient will be independent with self-management of pain to include relaxation techniques, gentle exercise. 08/05/20: good goal progress following mastectomy has used deep breathing as instructed. LTG Duration 11/05/20 Two Impairment forward head, rounded shoulders Licensed Marine Engineer Goal (LTG) Patient demonstrate good understanding of neutral postural alignment and importance for decreased muscle tension and pain, and be able to self correct with minimal to no cues. 08/05/20: good progress with patient working on postural correction exercises as instructed, gently easing back into them plus gentle yoga at this time LTG Duration 11/05/20 One Impairment low activity tolerance Short Term Goal (STG) Establish HEP to include deep breathing, postural correction , shoulder ROM and strengthening , and walking program. 08/05/20: started prior to mastectomy and gently resumed after mastectomy, good progress. Will gently progress ther ex as tolerated. STG Duration 10/16/20 Shelter Goal (LTG) Patient will be compliant with walking program 4x/wk and HEP and demonstrate shoulder ROM and strength WNL. 08/05/20: again,patient gently resuming HEP as instructed. ROM 75% LTG Duration 11/05/20 Assessment Summary Assessment Patient instructed not to stretch as much, try putting chest muscles on slack to inhibit overactivation, spasm, and pain (strain/ counterstrain theory); demonstrated good understanding. No kinesiotape today. Was issued chip bags to wear inside compression shirt for gentle massage to improve soft tissue mobility of chest. Physical Therapy Plan Frequency and Duration Frequency of Treatment 2x/Week Duration of Treatment 4 weeks Plan of Care Start Date 09/05/20 Plan of Care End Date 11/05/20 Therapeutic Interventions Therapeutic Interventions Home Exercise Program,Patient/ Caregiver Education,Self-Care/ Home Management,Therapeutic Activities,Therapeutic Exercises Modalities Hot Packs Next Visit Focus/Plan Next Note Type Treatment Note Next Visit Plan ASsess response to today's treatment. Gentle progression as tolerated.
--- NOTE | 2020-09-26 16:23 | PT.OTN ---
Current Diagnoses Intraductal carcinoma in situ of left breast (09/26/20) Soft tissue disorder, unspecified (09/26/20) Weakness (09/26/20) Other malaise (09/26/20) Physical Therapy Treatment Note PT-OP-A Visit Information Start: 06/06/20 15:04 Freq: Status: Active Protocol: Document 09/26/20 15:14 SAK (Rec: 09/26/20 15:22 SAK [id number]) Out-Patient Physical Therapy Visit Information Visit Information Visit Type Treatment Note Visit Start Time 15:15 Visit Stop Time 16:15 Total Visit Minutes 60 Visit Number 19 Precautions Precautions PMH: neck pain s/p whiplash; MRI 02/19/20: 1. Most significant findings are at C5-C6. There is mild canal stenosis. There is severe right and moderate left foraminal narrowing. 2. Multilevel facet arthropathy Depression, anxiety: sees counselor History left clavicle fracture , back pain, PTSD PT-OP-B Current Condition Start: 06/06/20 15:04 Freq: Status: Active Protocol: Document 09/09/20 13:56 SAK (Rec: 09/09/20 14:03 SAK [id number]) Current Condition History of Current Condition Onset Date 03/21/20 Current Complaints fatigue, pain, breast CA diagnosis History of Current Condition DCIS diagnosed in all samples from a left breast biopsy in March. Subsequent MRI showed some assymetry between the lymph nodes in the left than the right and no lesions in the right breast. She is working with Dr. Watson to develop treatment plan which will include bilateral mastectomy and chemotherapy, possible radiation. Sees Dr. Watson 06/26/20 and also sees a embroiderer hand that day. Patient reports fatigue, pain in bilateral shoulders, left subaxillary area. Patient is doing some yoga every morning, not doing any other exercise. Stress level high including daughter recently diagnosed with autoimmune disorder. 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 Prior Treatments and Tests diagnostic mammogram, biopsy, breast MRI. PT-OP-C Subjective Start: 06/06/20 15:04 Freq: Status: Active Protocol: Document 09/26/20 15:14 SAK (Rec: 09/26/20 15:22 SAK [id number]) OP-PT Subjective Patient Comments Patient Comments Went on a walk today with a little incline, feeling better. Feels better without as much kinesiotape, did light weights, gentle yoga. Decreased sternal pain, increased counterstrain emphasis helping decrease pain . PT-OP-Q Treatments Start: 06/06/20 15:04 Freq: Status: Active Protocol: Document 09/26/20 15:14 [facility] (Rec: 09/26/20 15:22 [facility] [id number]) Therapeutic Exercises Supine Exercises deep breathing Supine Exercise Name abdominal technique, chest, lateral chest and ribcage Comments manual cues and facil Manual Therapy Treatment Soft Tissue Mobilization upper thorax, chest, scar tissue Mobilization Type Myofascial Release,Strumming Intensity/Depth Moderate Body Position Hooklying Comments pillows under arms to put tissues more on slack Taping 1 Body Location left lateral thorax Treatment Focus pain and edema management Comments fan strip with base at spine, extending to left lateral thorax. Lymphedema Treatment Manual Lymphatic Drainage Location anterior chest Comments including deep breathing PT-OP-R Modalities Start: 06/06/20 15:04 Freq: Status: Active Protocol: Document 09/23/20 14:30 [facility] (Rec: 09/23/20 15:33 [facility] [id number]) Hot Pack/Cold Pack Treatment Hot Pack Location chest Patient Position Hooklying Treatment Duration (minutes) 15 Patient Tolerance Good Comments extra towel layer for gentle heat. 90/90 position, UE's supported by pillows PT-OP-T Assessment and Plan Start: 06/06/20 15:04 Freq: Status: Active Protocol: Document 09/26/20 15:14 [facility] (Rec: 09/26/20 15:22 [facility] [id number]) Physical Therapy Assessment Goals Four Impairment soft tissue tightness anterior chest and should and decreased scar mobility Short Term Goal (STG) Patient to be instructed in gentle self-massage as part of her home management 08/05/20: started today with patient demonstrating good understanding STG Duration 10/16/20 Roll Grinder Operator Goal (LTG) Soft tissue mobility to be WNL including scar mobility anterior chest and shoulders to allow for full function bilateral LE's LTG Duration Three Impairment pain Shelter Goal (LTG) Patient will be independent with self-management of pain to include relaxation techniques, gentle exercise. 08/05/20: good goal progress following mastectomy has used deep breathing as instructed. LTG Duration 11/05/20 Two Impairment forward head, rounded shoulders Roll Grinder Operator Goal (LTG) Patient demonstrate good understanding of neutral postural alignment and importance for decreased muscle tension and pain, and be able to self correct with minimal to no cues. 08/05/20: good progress with patient working on postural correction exercises as instructed, gently easing back into them plus gentle yoga at this time LTG Duration 11/05/20 One Impairment low activity tolerance Short Term Goal (STG) Establish HEP to include deep breathing, postural correction , shoulder ROM and strengthening , and walking program. 08/05/20: started prior to mastectomy and gently resumed after mastectomy, good progress. Will gently progress ther ex as tolerated. STG Duration 10/16/20 Roll Grinder Operator Goal (LTG) Patient will be compliant with walking program 4x/wk and HEP and demonstrate shoulder ROM and strength WNL. 08/05/20: again,patient gently resuming HEP as instructed. ROM 75% LTG Duration 11/05/20 Assessment Summary Assessment Patient with improved soft tissue mobility of scars, decreased pain. Feel emphasis on counterstrain positioning helping to increase parasympathetic response and decrease muscle tension. Good progress. Kinesiotape only left lateral trunk with base at spine. Physical Therapy Plan Frequency and Duration Frequency of Treatment 2x/Week Duration of Treatment 4 weeks Plan of Care Start Date 09/05/20 Plan of Care End Date 11/05/20 Therapeutic Interventions Therapeutic Interventions Home Exercise Program,Patient/ Caregiver Education,Self-Care/ Home Management,Therapeutic Activities,Therapeutic Exercises Modalities Hot Packs Next Visit Focus/Plan Next Note Type Progress Note Next Visit Plan Continue PT per POC.
--- NOTE | 2020-09-30 14:04 | PT.OTN ---
Current Diagnoses Intraductal carcinoma in situ of left breast (09/30/20) Soft tissue disorder, unspecified (09/30/20) Weakness (09/30/20) Other malaise (09/30/20) Physical Therapy Treatment Note PT-OP-A Visit Information Start: 06/06/20 15:04 Freq: Status: Active Protocol: Document 09/30/20 13:03 SAK (Rec: 09/30/20 13:08 SAK [id number]) Out-Patient Physical Therapy Visit Information Visit Information Visit Type Treatment Note Visit Start Time 13:00 Visit Stop Time 13:50 Total Visit Minutes 50 Visit Number 20 Precautions Precautions PMH: neck pain s/p whiplash; MRI 02/19/20: 1. Most significant findings are at C5-C6. There is mild canal stenosis. There is severe right and moderate left foraminal narrowing. 2. Multilevel facet arthropathy Depression, anxiety: sees counselor History left clavicle fracture , back pain, PTSD PT-OP-B Current Condition Start: 06/06/20 15:04 Freq: Status: Active Protocol: Document 09/09/20 13:56 SAK (Rec: 09/09/20 14:03 SAK [id number]) Current Condition History of Current Condition Onset Date 03/21/20 Current Complaints fatigue, pain, breast CA diagnosis History of Current Condition DCIS diagnosed in all samples from a left breast biopsy in March. Subsequent MRI showed some assymetry between the lymph nodes in the left than the right and no lesions in the right breast. She is working with Dr. Watson to develop treatment plan which will include bilateral mastectomy and chemotherapy, possible radiation. Sees Dr. Watson 06/26/20 and also sees a granite chip terrazzo finisher that day. Patient reports fatigue, pain in bilateral shoulders, left subaxillary area. Patient is doing some yoga every morning, not doing any other exercise. Stress level high including daughter recently diagnosed with autoimmune disorder. 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 Prior Treatments and Tests diagnostic mammogram, biopsy, breast MRI. 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 Has been having spasms and soreness in chest since then and c/o some warmth and tightness in chest. Some relief with Alleve. Not fatigued. PT-OP-Q Treatments Start: 06/06/20 15:04 Freq: Status: Active Protocol: Document 09/30/20 13:03 [facility] (Rec: 09/30/20 14:03 [facility] [id number]) Manual Therapy Treatment Soft Tissue Mobilization upper thorax, chest, scar tissue Mobilization Type Myofascial Release,Strumming Intensity/Depth Moderate Body Position Hooklying Comments pillows under arms to put tissues more on slack Self-Care/Home Management Treatment Education Patient Education Pain Management Other Education more gentle progression of activity, no impact as with use of hammer Lymphedema Treatment Manual Lymphatic Drainage Location anterior chest Comments including deep breathing PT-OP-R Modalities Start: 06/06/20 15:04 Freq: Status: Active Protocol: Document 09/23/20 14:30 [facility] (Rec: 09/23/20 15:33 [facility] [id number]) Hot Pack/Cold Pack Treatment Hot Pack Location chest Patient Position Hooklying Treatment Duration (minutes) 15 Patient Tolerance Good Comments extra towel layer for gentle heat. 90/90 position, UE's supported by pillows PT-OP-T Assessment and Plan Start: 06/06/20 15:04 Freq: Status: Active Protocol: Document 09/30/20 13:03 [facility] (Rec: 09/30/20 13:08 [facility] [id number]) Physical Therapy Assessment Goals Four Impairment soft tissue tightness anterior chest and should and decreased scar mobility Short Term Goal (STG) Patient to be instructed in gentle self-massage as part of her home management 08/05/20: started today with patient demonstrating good understanding STG Duration 10/16/20 Fpc Goal (LTG) Soft tissue mobility to be WNL including scar mobility anterior chest and shoulders to allow for full function bilateral LE's LTG Duration Three Impairment pain Fpc Goal (LTG) Patient will be independent with self-management of pain to include relaxation techniques, gentle exercise. 08/05/20: good goal progress following mastectomy has used deep breathing as instructed. LTG Duration 11/05/20 Two Impairment forward head, rounded shoulders Fpc Goal (LTG) Patient demonstrate good understanding of neutral postural alignment and importance for decreased muscle tension and pain, and be able to self correct with minimal to no cues. 08/05/20: good progress with patient working on postural correction exercises as instructed, gently easing back into them plus gentle yoga at this time LTG Duration 11/05/20 One Impairment low activity tolerance Short Term Goal (STG) Establish HEP to include deep breathing, postural correction , shoulder ROM and strengthening , and walking program. 08/05/20: started prior to mastectomy and gently resumed after mastectomy, good progress. Will gently progress ther ex as tolerated. STG Duration 10/16/20 Snuff Grinder Goal (LTG) Patient will be compliant with walking program 4x/wk and HEP and demonstrate shoulder ROM and strength WNL. 08/05/20: again,patient gently resuming HEP as instructed. ROM 75% LTG Duration 11/05/20 Assessment Summary Assessment Patient instructed not to use a hammer yet, more gradually progress her increase in activity level, listen to her body. Trial no kinesiotape today. Physical Therapy Plan Frequency and Duration Frequency of Treatment 2x/Week Duration of Treatment 4 weeks Plan of Care Start Date 09/05/20 Plan of Care End Date 11/05/20 Therapeutic Interventions Therapeutic Interventions Home Exercise Program,Patient/ Caregiver Education,Self-Care/ Home Management,Therapeutic Activities,Therapeutic Exercises Modalities Hot Packs Next Visit Focus/Plan Next Note Type Progress Note Next Visit Plan Continue to progress with manual techniques to improve soft tissue mobility, decrease pain, improve function. Patient highly compliant to HEP; continue to advise on gentle progression of activity .
--- NOTE | 2020-10-03 12:53 | PT-OP ANOTE ---
cancelled due to not feeling well
--- NOTE | 2020-10-07 16:36 | PT.OTN ---
Current Diagnoses Intraductal carcinoma in situ of left breast (10/07/20) Soft tissue disorder, unspecified (10/07/20) Weakness (10/07/20) Other malaise (10/07/20) Physical Therapy Treatment Note PT-OP-A Visit Information Start: 06/06/20 15:04 Freq: Status: Active Protocol: Document 10/07/20 15:15 SAK (Rec: 10/07/20 15:21 SAK [id number]) Out-Patient Physical Therapy Visit Information Visit Information Visit Type Treatment Note Visit Start Time 15:15 Visit Stop Time 16:15 Total Visit Minutes 60 Visit Number 21 Precautions Precautions PMH: neck pain s/p whiplash; MRI 02/19/20: 1. Most significant findings are at C5-C6. There is mild canal stenosis. There is severe right and moderate left foraminal narrowing. 2. Multilevel facet arthropathy Depression, anxiety: sees counselor History left clavicle fracture , back pain, PTSD PT-OP-B Current Condition Start: 06/06/20 15:04 Freq: Status: Active Protocol: Document 10/07/20 15:15 SAK (Rec: 10/07/20 15:21 SAK [id number]) Current Condition History of Current Condition Onset Date 03/21/20 Current Complaints fatigue, pain, breast CA diagnosis History of Current Condition DCIS diagnosed in all samples from a left breast biopsy in March. Subsequent MRI showed some assymetry between the lymph nodes in the left than the right and no lesions in the right breast. She is working with Dr. Watson to develop treatment plan which will include bilateral mastectomy and chemotherapy, possible radiation. Sees Dr. Watson 06/26/20 and also sees a research staff member that day. Patient reports fatigue, pain in bilateral shoulders, left subaxillary area. Patient is doing some yoga every morning, not doing any other exercise. Stress level high including daughter recently diagnosed with autoimmune disorder. 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 Prior Treatments and Tests diagnostic mammogram, biopsy, breast MRI. PT-OP-C Subjective Start: 06/06/20 15:04 Freq: Status: Active Protocol: Document 10/07/20 15:15 SAK (Rec: 10/07/20 15:21 SAK [id number]) OP-PT Subjective Patient Comments Patient Comments Just made bed; moments of mild pain, exhausted. Had rough week last week possibly after moving desk, lifting 5 lbs, plus having family visit. States she took a few days off from exercise or activity PT-OP-Q Treatments Start: 06/06/20 15:04 Freq: Status: Active Protocol: Document 10/07/20 15:15 [facility] (Rec: 10/08/20 16:35 [facility] [id number]) Therapeutic Exercises Supine Exercises deep breathing Supine Exercise Name abdominal technique, chest, lateral chest and ribcage Comments manual cues and facil Manual Therapy Treatment Soft Tissue Mobilization upper thorax, chest, scar tissue Mobilization Type Myofascial Release,Rolling, Strumming Intensity/Depth Moderate Body Position Hooklying Comments pillows under arms to put tissues more on slack Taping 1 Comments patient to tape at home after shower Self-Care/Home Management Treatment Education Patient Education Pain Management Other Education listen to her body, more gentle advancement of her activity level especially use of arms Lymphedema Treatment Manual Lymphatic Drainage Location anterior chest Comments including deep breathing PT-OP-R Modalities Start: 06/06/20 15:04 Freq: Status: Active Protocol: Document 10/07/20 15:15 [facility] (Rec: 10/08/20 16:35 [facility] [id number]) Hot Pack/Cold Pack Treatment Hot Pack Location chest Patient Position Hooklying Treatment Duration (minutes) 15 Patient Tolerance Good Comments extra towel layer for gentle heat. 90/90 position, UE's supported by pillows PT-OP-T Assessment and Plan Start: 06/06/20 15:04 Freq: Status: Active Protocol: Document 10/07/20 15:15 [facility] (Rec: 10/07/20 15:21 [facility] [id number]) Physical Therapy Assessment Goals Four Impairment soft tissue tightness anterior chest and should and decreased scar mobility Short Term Goal (STG) Patient to be instructed in gentle self-massage as part of her home management 08/05/20: started today with patient demonstrating good understanding STG Duration 10/16/20 Financial Advocate Goal (LTG) Soft tissue mobility to be WNL including scar mobility anterior chest and shoulders to allow for full function bilateral LE's LTG Duration Three Impairment pain Fpc Goal (LTG) Patient will be independent with self-management of pain to include relaxation techniques, gentle exercise. 08/05/20: good goal progress following mastectomy has used deep breathing as instructed. LTG Duration 11/05/20 Two Impairment forward head, rounded shoulders Fpc Goal (LTG) Patient demonstrate good understanding of neutral postural alignment and importance for decreased muscle tension and pain, and be able to self correct with minimal to no cues. 08/05/20: good progress with patient working on postural correction exercises as instructed, gently easing back into them plus gentle yoga at this time LTG Duration 11/05/20 One Impairment low activity tolerance Short Term Goal (STG) Establish HEP to include deep breathing, postural correction , shoulder ROM and strengthening , and walking program. 08/05/20: started prior to mastectomy and gently resumed after mastectomy, good progress. Will gently progress ther ex as tolerated. STG Duration 10/16/20 Fpc Goal (LTG) Patient will be compliant with walking program 4x/wk and HEP and demonstrate shoulder ROM and strength WNL. 08/05/20: again,patient gently resuming HEP as instructed. ROM 75% LTG Duration 11/05/20 Assessment Summary Assessment Patient had increase in pain after overdoing last week, some subsided due to taking a few days off from exercise or activity, tends to push too hard. Demonstrated good understanding of need to more gradually resume activity. Left scar and soft tissue of anterior chest more tight today. Patient encouraged to wear compressio shirt with chip bag for compression for pain and edema relief. Physical Therapy Plan Frequency and Duration Frequency of Treatment 2x/Week Duration of Treatment 4 weeks Plan of Care Start Date 09/05/20 Plan of Care End Date 11/05/20 Therapeutic Interventions Therapeutic Interventions Home Exercise Program,Patient/ Caregiver Education,Self-Care/ Home Management,Therapeutic Activities,Therapeutic Exercises Modalities Hot Packs Next Visit Focus/Plan Next Note Type Progress Note Next Visit Plan Continue with manual techniques to improve soft tissue and scar mobility, decrease pain and improve patient's function. Continue to stress imporance of gentle progression of activity due to patient's tendency to overdo.
--- NOTE | 2020-10-10 16:52 | PT.OTN ---
Current Diagnoses Intraductal carcinoma in situ of left breast (10/10/20) Soft tissue disorder, unspecified (10/10/20) Weakness (10/10/20) Other malaise (10/10/20) Physical Therapy Treatment Note PT-OP-A Visit Information Start: 06/06/20 15:04 Freq: Status: Active Protocol: Document 10/10/20 16:41 [facility]AK (Rec: 10/10/20 16:51 SAK [id number]) Out-Patient Physical Therapy Visit Information Visit Information Visit Type Treatment Note Visit Start Time 15:20 Visit Stop Time 16:15 Total Visit Minutes 55 Visit Number 22 Precautions Precautions PMH: neck pain s/p whiplash; MRI 02/19/20: 1. Most significant findings are at C5-C6. There is mild canal stenosis. There is severe right and moderate left foraminal narrowing. 2. Multilevel facet arthropathy Depression, anxiety: sees counselor History left clavicle fracture , back pain, PTSD PT-OP-B Current Condition Start: 06/06/20 15:04 Freq: Status: Active Protocol: Document 10/10/20 16:41 SAK (Rec: 10/10/20 16:51 SAK [id number]) Current Condition History of Current Condition Onset Date 03/21/20 Current Complaints fatigue, pain, breast CA diagnosis History of Current Condition DCIS diagnosed in all samples from a left breast biopsy in March. Subsequent MRI showed some assymetry between the lymph nodes in the left than the right and no lesions in the right breast. She is working with Dr. Watson to develop treatment plan which will include bilateral mastectomy and chemotherapy, possible radiation. Sees Dr. Watson 06/26/20 and also sees a director of product development that day. Patient reports fatigue, pain in bilateral shoulders, left subaxillary area. Patient is doing some yoga every morning, not doing any other exercise. Stress level high including daughter recently diagnosed with autoimmune disorder. 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 Prior Treatments and Tests diagnostic mammogram, biopsy, breast MRI. PT-OP-C Subjective Start: 06/06/20 15:04 Freq: Status: Active Protocol: Document 10/10/20 16:41 SAK (Rec: 10/10/20 16:51 [facility]AK [id number]) OP-PT Subjective Patient Comments Patient Comments Patient reports taking it easier, not pushing activity as hard, doing more gentle yoga, feeling soreness but less than last week. PT-OP-Q Treatments Start: 06/06/20 15:04 Freq: Status: Active Protocol: Document 10/10/20 16:41 [facility] (Rec: 10/10/20 16:51 [facility] [id number]) Therapeutic Exercises Supine Exercises postural isometric Reps/Minutes 3x deep breathing Supine Exercise Name abdominal technique, chest, lateral chest and ribcage Comments manual cues and facil Standing Exercises wall posture Reps/Minutes 5 min Manual Therapy Treatment Soft Tissue Mobilization pin and stretch Body Location right subscap and lat Intensity/Depth Moderate Body Position Hooklying Comments with passive shoulder flexion upper thorax, chest, scar tissue Mobilization Type Myofascial Release,Rolling, Strumming Intensity/Depth Moderate Body Position Hooklying Comments pillows under arms to put tissues more on slack Taping 1 Comments patient to tape at home after shower Self-Care/Home Management Treatment Education Patient Education Pain Management,Posture Other Education pin and stretch technique for subscap and lat stretch for home wall posture and supine postural isometric with education regarding neutral posture using wall for reference. Lymphedema Treatment Manual Lymphatic Drainage Location anterior chest Comments including deep breathing PT-OP-R Modalities Start: 06/06/20 15:04 Freq: Status: Active Protocol: Document 10/10/20 16:41 [facility] (Rec: 10/10/20 16:51 [facility] [id number]) Hot Pack/Cold Pack Treatment Hot Pack Location chest Patient Position Hooklying Treatment Duration (minutes) 15 Patient Tolerance Good Comments extra towel layer for gentle heat. 90/90 position, UE's supported by pillows PT-OP-T Assessment and Plan Start: 06/06/20 15:04 Freq: Status: Active Protocol: Document 10/10/20 16:41 [facility] (Rec: 10/10/20 16:51 [facility] [id number]) Physical Therapy Assessment Goals Four Impairment soft tissue tightness anterior chest and should and decreased scar mobility Short Term Goal (STG) Patient to be instructed in gentle self-massage as part of her home management 08/05/20: started today with patient demonstrating good understanding STG Duration 10/16/20 Nursing Home Goal (LTG) Soft tissue mobility to be WNL including scar mobility anterior chest and shoulders to allow for full function bilateral LE's LTG Duration Three Impairment pain Nursing Home Goal (LTG) Patient will be independent with self-management of pain to include relaxation techniques, gentle exercise. 08/05/20: good goal progress following mastectomy has used deep breathing as instructed. LTG Duration 11/05/20 Two Impairment forward head, rounded shoulders [employer] Goal (LTG) Patient demonstrate good understanding of neutral postural alignment and importance for decreased muscle tension and pain, and be able to self correct with minimal to no cues. 08/05/20: good progress with patient working on postural correction exercises as instructed, gently easing back into them plus gentle yoga at this time LTG Duration 11/05/20 One Impairment low activity tolerance Short Term Goal (STG) Establish HEP to include deep breathing, postural correction , shoulder ROM and strengthening , and walking program. 08/05/20: started prior to mastectomy and gently resumed after mastectomy, good progress. Will gently progress ther ex as tolerated. STG Duration 10/16/20 [employer] Goal (LTG) Patient will be compliant with walking program 4x/wk and HEP and demonstrate shoulder ROM and strength WNL. 08/05/20: again,patient gently resuming HEP as instructed. ROM 75% LTG Duration 11/05/20 Assessment Summary Assessment Review of postural alignment with use of wall for reference and wall posture and supine postural isometric for relief of pain, improved shoulder and neck function; patient had difficulty finding neutral and fatigued quickly, better tolerance in supine. Improved scar mobility today. Patient instructed in pin and stretch technique to decrease soft tissue tension in subscap and lat. Physical Therapy Plan Frequency and Duration Frequency of Treatment 2x/Week Duration of Treatment 4 weeks Plan of Care Start Date 09/05/20 Plan of Care End Date 11/05/20 Therapeutic Interventions Therapeutic Interventions Home Exercise Program,Patient/ Caregiver Education,Self-Care/ Home Management,Therapeutic Activities,Therapeutic Exercises Modalities Hot Packs Next Visit Focus/Plan Next Note Type Re-Evaluation Next Visit Plan assess need for further PT, set updated goals as indicated .
--- NOTE | 2020-11-26 17:04 | PT.OTRE ---
Current Diagnoses Intraductal carcinoma in situ of left breast (11/26/20) Soft tissue disorder, unspecified (11/26/20) Weakness (11/26/20) Other malaise (11/26/20) Past Medical History (Last Reviewed 12/12/19 @ 13:22 by Jalil Pineda DO) Acne (2011) Animal dander allergy Back fracture (1999) Chicken pox (1972) Chronic back pain (1999) Clavicle fracture (1999) Cow's milk protein allergy Eczema (1998) 5 Joint pain (1978) Neuropathy (1999) Normal Papanicolaou smear Presence of intrauterine contraceptive device (10/07/17) PTSD (post-traumatic stress disorder) (1999) Reactive airway disease (1989) Recurrent anxiety (1999) Recurrent major depressive disorder, in remission (12/04/15) Right hand pain (2012) Seasonal allergic rhinitis due to pollen (1971) Shoulder pain Surgical History (Last Updated 09/27/20 @ 22:57 by Clara Mendoza DO) History of bilateral mastectomy (~07/08/20) History of shoulder surgery Visit Care Team Role Provider Type Clara Mendoza DO Attending Provider Physician Family Provider Primary Care Provider Referring Provider Specialty: [facility] Practice Address: [address] [place] [address], [address], [facility] Email: [email or web address] Physical Therapy Re-Evaluation PT-OP-A Visit Information Start: 06/06/20 15:04 Freq: Status: Active Protocol: Document 11/26/20 15:18 MARILEE (Rec: 11/26/20 16:37 [facility] [id number]) Out-Patient Physical Therapy Visit Information Visit Information Visit Type Re-Evaluation Visit Start Time 15:18 Visit Stop Time 16:20 Total Visit Minutes 62 Visit Number 23 Evaluation Information Evaluation Date 06/10/20 Precautions Precautions PMH: neck pain s/p whiplash; MRI 02/19/20: 1. Most significant findings are at C5-C6. There is mild canal stenosis. There is severe right and moderate left foraminal narrowing. 2. Multilevel facet arthropathy Depression, anxiety: sees counselor History left clavicle fracture , back pain, PTSD PT-OP-B Current Condition Start: 06/06/20 15:04 Freq: Status: Active Protocol: Document 11/26/20 15:18 [facility] (Rec: 11/26/20 16:37 [facility] [id number]) Current Condition History of Current Condition Onset Date 07/16/20 Current Complaints bilateral mastectomy History of Current Condition DCIS diagnosed in all samples from a left breast biopsy in March. Subsequent MRI showed some assymetry between the lymph nodes in the left than the right and no lesions in the right breast. She is working with Dr. Watson to develop treatment plan which will include bilateral mastectomy and chemotherapy, possible radiation. Sees Dr. Watson 06/26/20 and also sees a maintenance representative that day. Patient reports fatigue, pain in bilateral shoulders, left subaxillary area. Patient is doing some yoga every morning, not doing any other exercise. Stress level high including daughter recently diagnosed with autoimmune disorder. 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 Prior Treatments and Tests diagnostic mammogram, biopsy, breast MRI. Prior Functional Status Baseline Function- ADL's Modified Independent Baseline Function- Mobility Modified Independent Baseline Function- Other Some baseline pain in neck and shoulders from prior injuries Current Functional Impairments (Reported) Functional Limitations- ADL's painful in ribs, unable to lift more than a few pounds without pain Functional Limitations- Work/School has returned to usual work schedule, has pain in chest and ribcage especially with trying to sit up straight Personal Factors Other Personal Factors That May Effect tendency to overdo with Therapy/Recovery activity and exercises, needs guidance PT-OP-C Subjective Start: 06/06/20 15:04 Freq: Status: Active Protocol: Document 11/26/20 15:18 [facility] (Rec: 11/26/20 16:27 [facility] [id number]) OP-PT Subjective Patient Comments Patient Comments Reports has been compliant to HEP. Recent left side below incision exquisitely tender area 9/10 occasionally when touched, lateral ribs sore after starting cardio low impact Mars started at 15min , gradually progressed to 45 always wearing compression shirt. After 45 min was sore in chest with scar retracting muscle spasming, tried kinesiotape and was more sore. Feels she overdid which she has a tendency to do. Has stopped doing overhead motions with Mars. For past 5 days feels like someone punched her in the ribs, wondering if due to working so hard with postural correction and having difficulty attaining neutral posture. Energy level much better than before cancer treatment, feels needs further PT for guidance in appropriately progressing and not overdoing with exercise and activity, further help with soft tissue mobility in scars and ribcage, continued education and work on posture and mobility exercises, and guidance with resuming strengthening exercises. Feels 25% back to typical ability in terms of lifting, 100% in terms of energy level. Doing more but pain hasn't decreased so needs PT for pain management. PT-OP-Q Treatments Start: 06/06/20 15:04 Freq: Status: Active Protocol: Document 11/26/20 15:18 [facility] (Rec: 11/26/20 16:37 [facility] [id number]) Therapeutic Exercises Supine Exercises postural isometric Reps/Minutes 3x scapular squeeze Reps/Minutes 5x Comments cues to prevent flaring of ribcage deep breathing Supine Exercise Name abdominal technique, chest, lateral chest and ribcage Reps/Minutes 5 min Comments manual cues and facil Sidelying Exercises arm circles Reps/Minutes 3x open book Reps/Minutes 3x Sitting Exercises postural correction Reps/Minutes 2 min Comments verbal and manual cues Standing Exercises wall posture Reps/Minutes 2 min Manual Therapy Treatment Soft Tissue Mobilization upper thorax, chest, scar tissue Mobilization Type Myofascial Release Intensity/Depth Moderate Body Position Hooklying Comments use of Dycem; insructed patient in use and issued 2 squares Self-Care/Home Management Treatment Education Patient Education Home Exercise Program,Pain Management,Posture Activities Self-Care/Home Management Activities use of Dycem for self mobilization of scars, chest. Lymphedema Treatment Manual Lymphatic Drainage Comments no significant edema noted PT-OP-R Modalities Start: 06/06/20 15:04 Freq: Status: Active Protocol: Document 11/26/20 15:18 [facility] (Rec: 11/26/20 16:37 [facility] [id number]) Hot Pack/Cold Pack Treatment Hot Pack Location chest Patient Position Hooklying Treatment Duration (minutes) 15 Patient Tolerance Good Comments extra towel layer for gentle heat. PT-OP-T Assessment and Plan Start: 06/06/20 15:04 Freq: Status: Active Protocol: Document 11/26/20 15:18 [facility] (Rec: 11/26/20 16:27 [facility] [id number]) Physical Therapy Assessment Goals Four Impairment soft tissue tightness anterior chest and should and decreased scar mobility Short Term Goal (STG) Patient to be instructed in gentle self-massage as part of her home management 08/05/20: started today with patient demonstrating good understanding STG Duration achieved Penitentiary Goal (LTG) Soft tissue mobility to be WNL including scar mobility anterior chest and shoulders to allow for full function bilateral UE's. Be able to sit and stand with neutral posture without pain or excess effort. 11/26/20: Steady improvement, still some spasms of pectoral muscles, pulling of scars with still some limited mobility. Having what she feels is good posture causes her pain ( feels like she has been punched in the ribs) LTG Duration 01/25/21 Three Impairment pain Penitentiary Goal (LTG) Patient will be independent with self-management of pain to include relaxation techniques, gentle exercise. 08/05/20: good goal progress following mastectomy has used deep breathing as instructed. 11/26/20: pain level of 3-5/10 in chest and ribcage; improved activity level but pain persists, needs patient education for listening to her body and not pushing too hard . LTG Duration 01/25/21 Two Impairment forward head, rounded shoulders Director Of Managed Services Goal (LTG) Patient to demonstrate good understanding of neutral postural alignment and importance for decreased muscle tension and pain, and be able to self correct with minimal to no cues. 08/05/20: good progress with patient working on postural correction exercises as instructed, gently easing back into them plus gentle yoga at this time 11/26/20: difficult to attain neutral posture and maintain; needs cues and she feels needs constant attention, frequently causes increase in pain LTG Duration 01/25/21 One Impairment low activity tolerance Short Term Goal (STG) Establish HEP to include deep breathing, postural correction , shoulder ROM and strengthening , and walking program. 08/05/20: started prior to mastectomy and gently resumed after mastectomy, good progress. Will gently progress ther ex as tolerated. 11/26/20: doing well with stretching and ROM. ROM shoulders WNL. Has done mild resistance with yoga, needs guidance to initiate weight training safely STG Duration 12/26/20 [employer] Of Managed Services Goal (LTG) Patient will be compliant with walking program 4x/wk and HEP and demonstrate shoulder ROM and strength WNL. 08/05/20: again,patient gently resuming HEP as instructed. ROM 75% 11/26/20: Hasn't been walking recently, was pulled over by her dog during a walk just after last PT session , was very sore, felt she strained through her chest, had to modify activity. Not going to resume walking at this time as dog is too strong, trying to focus on increasing heart rate with Mars and doing HEP and gentle yoga LTG Duration 01/25/21 Assessment Summary Assessment Polina has been highly compliant with her HEP, is doing gentle yoga consistently , recently started Mars as exercise to get her heart rate up but while improving her mobility and getting her heart rate up, a longer session caused her increase in pain. She is having difficulty with postural correction, feeling pain in her ribs bilaterally and having difficulty feeling what neutral posture is with the changes in her body after mastectomy. She has an area below her left mastectomy scar which is at times exquisitely tender at 9/10 but not elicited today. While improved greatly she still has limitations in her scar mobility. ROM in shoulders is WNL but strength is 4/5, patient needs further guidance in strengthening exercises that will not increase her pain. She needs further scar and soft tissue mobilization as well as progression of breathing exercises for rib mobilization to improve her function and decrease her pain . I highly recommend further skilled physical therapy to help this highly motivated patient to fully reach her physical therapy goals of strength and mobility WNL, normalize scar and rib mobility, be able to attain neutral posture without pain or excess effort, and return to usual activity with minimal pain. Physical Therapy Plan Frequency and Duration Frequency of Treatment 1x/Week Duration of Treatment 8 weeks Plan of Care Start Date 11/26/20 Plan of Care End Date 01/25/21 Therapeutic Interventions Therapeutic Interventions Home Exercise Program,Manual Therapy,Neuromuscular Re- education,Patient/Caregiver Education,Self-Care/Home Management,Soft Tissue Mobilization,Therapeutic Activities,Therapeutic Exercises Modalities Hot Packs Next Visit Focus/Plan Next Note Type Treatment Note Next Visit Plan Continue scar mobilization, deep breathing exercises to improve chest expansion and rib mobilization, gentle progression of ther ex for UE strengthening and postural correction. Manual techniques and modalities as indicated for pain management.
--- NOTE | 2020-12-19 12:15 | PT.OTN ---
Current Diagnoses Intraductal carcinoma in situ of left breast (12/19/20) Soft tissue disorder, unspecified (12/19/20) Weakness (12/19/20) Other malaise (12/19/20) Physical Therapy Treatment Note PT-OP-A Visit Information Start: 06/06/20 15:04 Freq: Status: Active Protocol: Document 12/19/20 09:44 [facility] (Rec: 12/19/20 10:33 [facility] [id number]) Out-Patient Physical Therapy Visit Information Visit Information Visit Type Re-Evaluation Visit Start Time 09:45 Visit Stop Time 10:30 Total Visit Minutes 62 Visit Number 24 Evaluation Information Evaluation Date 06/10/20 Precautions Precautions PMH: neck pain s/p whiplash; MRI 02/19/20: 1. Most significant findings are at C5-C6. There is mild canal stenosis. There is severe right and moderate left foraminal narrowing. 2. Multilevel facet arthropathy Depression, anxiety: sees counselor History left clavicle fracture , back pain, PTSD PT-OP-B Current Condition Start: 06/06/20 15:04 Freq: Status: Active Protocol: Document 12/19/20 09:44 [facility] (Rec: 12/19/20 10:33 [facility] [id number]) Current Condition History of Current Condition Onset Date 07/16/20 Current Complaints bilateral mastectomy History of Current Condition DCIS diagnosed in all samples from a left breast biopsy in March. Subsequent MRI showed some assymetry between the lymph nodes in the left than the right and no lesions in the right breast. She is working with Dr. Watson to develop treatment plan which will include bilateral mastectomy and chemotherapy, possible radiation. Sees Dr. Watson 06/26/20 and also sees a manager cardiovascular that day. Patient reports fatigue, pain in bilateral shoulders, left subaxillary area. Patient is doing some yoga every morning, not doing any other exercise. Stress level high including daughter recently diagnosed with autoimmune disorder. 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 Prior Treatments and Tests diagnostic mammogram, biopsy, breast MRI. PT-OP-C Subjective Start: 06/06/20 15:04 Freq: Status: Active Protocol: Document 12/19/20 09:44 [facility] (Rec: 12/19/20 10:33 [facility] [id number]) OP-PT Subjective Patient Comments Patient Comments Had second Covid shot 1 1/2 weeks ago; nausea, fever, aches, muscle cramping. Was doing 30 min daily cardio before shots, down to 15 min. Had planned to do strengthening 3 days per week but then got first shot day after last seen, has only been able to do 2 days per week. Can do 5 pounds 2 sets ea biceps , bent over rows, triceps, flies, serratus punch , overhead lift 8-10 reps. With no weight can do overhead and rotations of UE's. Some chest cramping and pain but better (doesn't feel like someone has punched her as previously). Still feels binding and pulling in chest area. Doing yoga 5 days per week still. PT-OP-Q Treatments Start: 06/06/20 15:04 Freq: Status: Active Protocol: Document 12/19/20 09:44 [facility] (Rec: 12/19/20 12:14 [facility] [id number]) Therapeutic Exercises Supine Exercises deep breathing Side bilateral Comments with manual facilitation lateral ribcage Manual Therapy Treatment Soft Tissue Mobilization upper thorax, chest, scar tissue Mobilization Type Instrument Assisted,Myofascial Release,Rolling Intensity/Depth Moderate Body Position Hooklying Comments Patient able to tolerate use of medium suction cup for scar mobilization today for first time vs previously too painful Self-Care/Home Management Treatment Education Patient Education Home Exercise Program Other Education progress gently, listen to body Lymphedema Treatment Manual Lymphatic Drainage Comments no significant edema noted PT-OP-R Modalities Start: 06/06/20 15:04 Freq: Status: Active Protocol: Document 12/19/20 09:44 [facility] (Rec: 12/19/20 12:14 [facility] [id number]) Hot Pack/Cold Pack Treatment Hot Pack Location chest Patient Position Hooklying Treatment Duration (minutes) 15 Patient Tolerance Good Comments extra towel layer for gentle heat. PT-OP-T Assessment and Plan Start: 06/06/20 15:04 Freq: Status: Active Protocol: Document 12/19/20 09:44 [facility] (Rec: 12/19/20 10:33 [facility] [id number]) Physical Therapy Assessment Goals Four Impairment soft tissue tightness anterior chest and should and decreased scar mobility Short Term Goal (STG) Patient to be instructed in gentle self-massage as part of her home management 08/05/20: started today with patient demonstrating good understanding STG Duration achieved Long-Term Goal (LTG) Soft tissue mobility to be WNL including scar mobility anterior chest and shoulders to allow for full function bilateral UE's. Be able to sit and stand with neutral posture without pain or excess effort. 11/26/20: Steady improvement, still some spasms of pectoral muscles, pulling of scars with still some limited mobility. Having what she feels is good posture causes her pain ( feels like she has been punched in the ribs) LTG Duration 01/25/21 Three Impairment pain Photographic Plate Maker Goal (LTG) Patient will be independent with self-management of pain to include relaxation techniques, gentle exercise. 08/05/20: good goal progress following mastectomy has used deep breathing as instructed. 11/26/20: pain level of 3-5/10 in chest and ribcage; improved activity level but pain persists, needs patient education for listening to her body and not pushing too hard . LTG Duration 01/25/21 Two Impairment forward head, rounded shoulders Photographic Plate Maker Goal (LTG) Patient to demonstrate good understanding of neutral postural alignment and importance for decreased muscle tension and pain, and be able to self correct with minimal to no cues. 08/05/20: good progress with patient working on postural correction exercises as instructed, gently easing back into them plus gentle yoga at this time 11/26/20: difficult to attain neutral posture and maintain; needs cues and she feels needs constant attention, frequently causes increase in pain LTG Duration 01/25/21 One Impairment low activity tolerance Short Term Goal (STG) Establish HEP to include deep breathing, postural correction , shoulder ROM and strengthening , and walking program. 08/05/20: started prior to mastectomy and gently resumed after mastectomy, good progress. Will gently progress ther ex as tolerated. 11/26/20: doing well with stretching and ROM. ROM shoulders WNL. Has done mild resistance with yoga, needs guidance to initiate weight training safely STG Duration 12/26/20 Photographic Plate Maker Goal (LTG) Patient will be compliant with walking program 4x/wk and HEP and demonstrate shoulder ROM and strength WNL. 08/05/20: again,patient gently resuming HEP as instructed. ROM 75% 11/26/20: Hasn't been walking recently, was pulled over by her dog during a walk just after last PT session , was very sore, felt she strained through her chest, had to modify activity. Not going to resume walking at this time as dog is too strong, trying to focus on increasing heart rate with Mars and doing HEP and gentle yoga LTG Duration 01/25/21 Assessment Summary Assessment Polina has been highly compliant with her HEP, is doing gentle yoga consistently , recently started Mars as exercise to get her heart rate up but while improving her mobility and getting her heart rate up, a longer session caused her increase in pain. She is having difficulty with postural correction, feeling pain in her ribs bilaterally and having difficulty feeling what neutral posture is with the changes in her body after mastectomy. She has an area below her left mastectomy scar which is at times exquisitely tender at 9/10 but not elicited today. While improved greatly she still has limitations in her scar mobility. ROM in shoulders is WNL but strength is 4/5, patient needs further guidance in strengthening exercises that will not increase her pain. She needs further scar and soft tissue mobilization as well as progression of breathing exercises for rib mobilization to improve her function and decrease her pain . I highly recommend further skilled physical therapy to help this highly motivated patient to fully reach her physical therapy goals of strength and mobility WNL, normalize scar and rib mobility, be able to attain neutral posture without pain or excess effort, and return to usual activity with minimal pain. Physical Therapy Plan Frequency and Duration Frequency of Treatment 1x/Week Duration of Treatment 8 weeks Plan of Care Start Date 11/26/20 Plan of Care End Date 01/25/21 Therapeutic Interventions Therapeutic Interventions Home Exercise Program,Manual Therapy,Neuromuscular Re- education,Patient/Caregiver Education,Self-Care/Home Management,Soft Tissue Mobilization,Therapeutic Activities,Therapeutic Exercises Modalities Hot Packs Next Visit Focus/Plan Next Note Type Treatment Note Next Visit Plan Continue scar mobilization, deep breathing exercises to improve chest expansion and rib mobilization, gentle progression of ther ex for UE strengthening and postural correction. Manual techniques and modalities as indicated for pain management.
--- NOTE | 2020-12-26 09:54 | PT.OTN ---
Current Diagnoses Intraductal carcinoma in situ of left breast (12/26/20) Soft tissue disorder, unspecified (12/26/20) Weakness (12/26/20) Other malaise (12/26/20) Physical Therapy Treatment Note PT-OP-A Visit Information Start: 06/06/20 15:04 Freq: Status: Active Protocol: Document 12/26/20 09:54 SAK (Rec: 12/26/20 09:58 SAK [id number]) Out-Patient Physical Therapy Visit Information Visit Information Visit Type Treatment Note Visit Start Time 09:45 Visit Stop Time 10:30 Total Visit Minutes 55 Visit Number 25 Evaluation Information Evaluation Date 06/10/20 Precautions Precautions PMH: neck pain s/p whiplash; MRI 02/19/20: 1. Most significant findings are at C5-C6. There is mild canal stenosis. There is severe right and moderate left foraminal narrowing. 2. Multilevel facet arthropathy Depression, anxiety: sees counselor History left clavicle fracture , back pain, PTSD PT-OP-B Current Condition Start: 06/06/20 15:04 Freq: Status: Active Protocol: Document 12/26/20 09:54 SAK (Rec: 12/26/20 09:58 SAK [id number]) Current Condition History of Current Condition Onset Date 07/16/20 Current Complaints bilateral mastectomy History of Current Condition DCIS diagnosed in all samples from a left breast biopsy in March. Subsequent MRI showed some assymetry between the lymph nodes in the left than the right and no lesions in the right breast. She is working with Dr. Watson to develop treatment plan which will include bilateral mastectomy and chemotherapy, possible radiation. Sees Dr. Watson 06/26/20 and also sees a erp project manager that day. Patient reports fatigue, pain in bilateral shoulders, left subaxillary area. Patient is doing some yoga every morning, not doing any other exercise. Stress level high including daughter recently diagnosed with autoimmune disorder. 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 Prior Treatments and Tests diagnostic mammogram, biopsy, breast MRI. PT-OP-C Subjective Start: 06/06/20 15:04 Freq: Status: Active Protocol: Document 12/26/20 09:54 SAK (Rec: 12/26/20 09:58 SAK [id number]) OP-PT Subjective Patient Comments Patient Comments Has recovered from Covid shot. Overdid over the weekend walked 5 hours, paddle boarded . Did have some spasming the next couple days in her chest. Hasn't done weight-training this week. Took a day off from exercise yesterday. PT-OP-N Lymphedema Start: 12/31/20 08:19 Freq: Status: Active Protocol: Document 12/26/20 09:54 [facility] (Rec: 12/31/20 08:22 [facility] [id number]) Lymphedema Measurements Upper Extremity Circumference Measurements left LE MCP 18 cm Dorsum of Hand 18.9 cm Wrist 16.6 cm 5 cm From Wrist Crease 18.2 cm 10 cm From Wrist Crease 21.2 cm 15 cm From Wrist Crease 24.4 cm 20 cm From Wrist Crease 26.4 cm 25 cm From Wrist Crease 27 cm 30 cm From Wrist Crease 29.9 cm 35 cm From Wrist Crease 30.9 cm 40 cm From Wrist Crease 31.2 cm 45 cm From Wrist Crease 33.5 cm Axilla 43.1 cm right UE MCP 19.2 cm Dorsum of Hand 19.5 cm Wrist 16.5 cm 5 cm From Wrist Crease 18.3 cm 10 cm From Wrist Crease 21.1 cm 15 cm From Wrist Crease 25 cm 20 cm From Wrist Crease 26.8 cm 25 cm From Wrist Crease 27.9 cm 30 cm From Wrist Crease 30.8 cm 35 cm From Wrist Crease 31.9 cm 40 cm From Wrist Crease 33.6 cm 45 cm From Wrist Crease 35.4 cm Axilla 43.6 cm PT-OP-Q Treatments Start: 06/06/20 15:04 Freq: Status: Active Protocol: Document 12/26/20 09:54 [facility] (Rec: 12/26/20 09:58 [facility] [id number]) Therapeutic Exercises Sidelying Exercises arm circles Reps/Minutes 3x Sitting Exercises lat pull Resistance 30# Reps/Minutes 10x postural correction Reps/Minutes 2 min Comments verbal and manual cues lat shrug Resistance 30 Reps/Minutes 10x pulleys Comments HEP Manual Therapy Treatment Soft Tissue Mobilization upper thorax, chest, scar tissue Mobilization Type Instrument Assisted,Myofascial Release,Rolling Intensity/Depth Moderate Body Position Hooklying Comments Patient able to tolerate use of medium suction cup for scar mobilization today for first time vs previously too painful Lymphedema Treatment Other Other circumferenial measurements taken darcy UE's, no visible signs of lymphedema this date. PT-OP-R Modalities Start: 06/06/20 15:04 Freq: Status: Active Protocol: Document 12/26/20 09:54 [facility] (Rec: 12/26/20 09:58 [facility] [id number]) Hot Pack/Cold Pack Treatment Hot Pack Location chest Patient Position Hooklying Treatment Duration (minutes) 15 Patient Tolerance Good Comments extra towel layer for gentle heat. PT-OP-T Assessment and Plan Start: 06/06/20 15:04 Freq: Status: Active Protocol: Document 12/26/20 09:54 [facility] (Rec: 12/26/20 09:58 [facility] [id number]) Physical Therapy Assessment Goals Four Impairment soft tissue tightness anterior chest and should and decreased scar mobility Short Term Goal (STG) Patient to be instructed in gentle self-massage as part of her home management 08/05/20: started today with patient demonstrating good understanding STG Duration achieved Residential Goal (LTG) Soft tissue mobility to be WNL including scar mobility anterior chest and shoulders to allow for full function bilateral UE's. Be able to sit and stand with neutral posture without pain or excess effort. 11/26/20: Steady improvement, still some spasms of pectoral muscles, pulling of scars with still some limited mobility. Having what she feels is good posture causes her pain ( feels like she has been punched in the ribs) LTG Duration 01/25/21 Three Impairment pain Unit Aid Goal (LTG) Patient will be independent with self-management of pain to include relaxation techniques, gentle exercise. 08/05/20: good goal progress following mastectomy has used deep breathing as instructed. 11/26/20: pain level of 3-5/10 in chest and ribcage; improved activity level but pain persists, needs patient education for listening to her body and not pushing too hard . LTG Duration 01/25/21 Two Impairment forward head, rounded shoulders Residential Goal (LTG) Patient to demonstrate good understanding of neutral postural alignment and importance for decreased muscle tension and pain, and be able to self correct with minimal to no cues. 08/05/20: good progress with patient working on postural correction exercises as instructed, gently easing back into them plus gentle yoga at this time 11/26/20: difficult to attain neutral posture and maintain; needs cues and she feels needs constant attention, frequently causes increase in pain LTG Duration 01/25/21 One Impairment low activity tolerance Short Term Goal (STG) Establish HEP to include deep breathing, postural correction , shoulder ROM and strengthening , and walking program. 08/05/20: started prior to mastectomy and gently resumed after mastectomy, good progress. Will gently progress ther ex as tolerated. 11/26/20: doing well with stretching and ROM. ROM shoulders WNL. Has done mild resistance with yoga, needs guidance to initiate weight training safely STG Duration 12/26/20 Residential Goal (LTG) Patient will be compliant with walking program 4x/wk and HEP and demonstrate shoulder ROM and strength WNL. 08/05/20: again,patient gently resuming HEP as instructed. ROM 75% 11/26/20: Hasn't been walking recently, was pulled over by her dog during a walk just after last PT session , was very sore, felt she strained through her chest, had to modify activity. Not going to resume walking at this time as dog is too strong, trying to focus on increasing heart rate with Mars and doing HEP and gentle yoga LTG Duration 01/25/21 Physical Therapy Plan Frequency and Duration Frequency of Treatment 1x/Week Duration of Treatment 8 weeks Plan of Care Start Date 11/26/20 Plan of Care End Date 01/25/21 Therapeutic Interventions Therapeutic Interventions Home Exercise Program,Manual Therapy,Neuromuscular Re- education,Patient/Caregiver Education,Self-Care/Home Management,Soft Tissue Mobilization,Therapeutic Activities,Therapeutic Exercises Modalities Hot Packs Next Visit Focus/Plan Next Note Type Treatment Note
--- NOTE | 2021-01-02 10:46 | PT.OTN ---
Current Diagnoses Intraductal carcinoma in situ of left breast (01/02/21) Soft tissue disorder, unspecified (01/02/21) Weakness (01/02/21) Other malaise (01/02/21) Physical Therapy Treatment Note PT-OP-A Visit Information Start: 06/06/20 15:04 Freq: Status: Active Protocol: Document 01/02/21 09:50 [facility] (Rec: 01/02/21 10:07 SAK [id number]) Out-Patient Physical Therapy Visit Information Visit Information Visit Type Treatment Note Visit Start Time 09:45 Visit Stop Time 10:30 Total Visit Minutes 55 Visit Number 25 PT-OP-B Current Condition Start: 06/06/20 15:04 Freq: Status: Active Protocol: Document 01/02/21 09:50 [facility]AK (Rec: 01/02/21 10:07 SAK [id number]) Current Condition History of Current Condition Onset Date 07/16/20 Current Complaints bilateral mastectomy History of Current Condition DCIS diagnosed in all samples from a left breast biopsy in March. Subsequent MRI showed some assymetry between the lymph nodes in the left than the right and no lesions in the right breast. She is working with Dr. Watson to develop treatment plan which will include bilateral mastectomy and chemotherapy, possible radiation. Sees Dr. Watson 06/26/20 and also sees a volumetric weigher that day. Patient reports fatigue, pain in bilateral shoulders, left subaxillary area. Patient is doing some yoga every morning, not doing any other exercise. Stress level high including daughter recently diagnosed with autoimmune disorder. 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 Prior Treatments and Tests diagnostic mammogram, biopsy, breast MRI. PT-OP-C Subjective Start: 06/06/20 15:04 Freq: Status: Active Protocol: Document 01/02/21 09:50 [facility]AK (Rec: 01/02/21 10:07 SAK [id number]) OP-PT Subjective Patient Comments Patient Comments Compliant to HEP except during hottest days last weekend. Feels like needs more of the suction treatment to scars. Reports since April (after 's heart attack) right side of mouth curves down, possibly weakness right hand, drops things more often than used to. Blood pressure was high, has monitor, also given propranolol incase stressful situation inc BP again. Noticed droop a little less after doing some exercises. Just had skin biopsy right back; no results back. PT-OP-N Lymphedema Start: 12/31/20 08:19 Freq: Status: Active Protocol: Document 12/26/20 09:54 [facility] (Rec: 12/31/20 08:22 [facility] [id number]) Lymphedema Measurements Upper Extremity Circumference Measurements left LE MCP 18 cm Dorsum of Hand 18.9 cm Wrist 16.6 cm 5 cm From Wrist Crease 18.2 cm 10 cm From Wrist Crease 21.2 cm 15 cm From Wrist Crease 24.4 cm 20 cm From Wrist Crease 26.4 cm 25 cm From Wrist Crease 27 cm 30 cm From Wrist Crease 29.9 cm 35 cm From Wrist Crease 30.9 cm 40 cm From Wrist Crease 31.2 cm 45 cm From Wrist Crease 33.5 cm Axilla 43.1 cm right UE MCP 19.2 cm Dorsum of Hand 19.5 cm Wrist 16.5 cm 5 cm From Wrist Crease 18.3 cm 10 cm From Wrist Crease 21.1 cm 15 cm From Wrist Crease 25 cm 20 cm From Wrist Crease 26.8 cm 25 cm From Wrist Crease 27.9 cm 30 cm From Wrist Crease 30.8 cm 35 cm From Wrist Crease 31.9 cm 40 cm From Wrist Crease 33.6 cm 45 cm From Wrist Crease 35.4 cm Axilla 43.6 cm PT-OP-Q Treatments Start: 06/06/20 15:04 Freq: Status: Active Protocol: Document 01/02/21 09:50 [facility] (Rec: 01/02/21 10:07 [facility] [id number]) Therapeutic Exercises Sidelying Exercises arm circles Reps/Minutes 3x ea CW and CCW Sitting Exercises lat pull Comments HEP lat shrug Resistance 30 Reps/Minutes 10x Manual Therapy Treatment Soft Tissue Mobilization upper thorax, chest, scar tissue Mobilization Type Instrument Assisted,Myofascial Release,Rolling Intensity/Depth Moderate Body Position Hooklying Comments medium suction tool; lifting, gliding, rotation Other Other Manual Treatments MMT darcy UE's and dynamometer right UE. Strength 4+/5 shoulders, 5/5 elbows and wrists. Scale Tank Operator: left 60,52,52, right 80 78, 75 PT-OP-R Modalities Start: 06/06/20 15:04 Freq: Status: Active Protocol: Document 01/02/21 09:50 [facility] (Rec: 01/02/21 10:07 SAK [id number]) Hot Pack/Cold Pack Treatment Hot Pack Location chest Patient Position Hooklying Treatment Duration (minutes) 15 Patient Tolerance Good Comments extra towel layer for gentle heat. PT-OP-T Assessment and Plan Start: 06/06/20 15:04 Freq: Status: Active Protocol: Document 01/02/21 09:50 [facility] (Rec: 01/02/21 10:07 [facility] [id number]) Physical Therapy Assessment Goals Four Impairment soft tissue tightness anterior chest and should and decreased scar mobility Short Term Goal (STG) Patient to be instructed in gentle self-massage as part of her home management 08/05/20: started today with patient demonstrating good understanding STG Duration achieved Nursing Instructor Goal (LTG) Soft tissue mobility to be WNL including scar mobility anterior chest and shoulders to allow for full function bilateral UE's. Be able to sit and stand with neutral posture without pain or excess effort. 11/26/20: Steady improvement, still some spasms of pectoral muscles, pulling of scars with still some limited mobility. Having what she feels is good posture causes her pain ( feels like she has been punched in the ribs) LTG Duration 01/25/21 Three Impairment pain Usp Goal (LTG) Patient will be independent with self-management of pain to include relaxation techniques, gentle exercise. 08/05/20: good goal progress following mastectomy has used deep breathing as instructed. 11/26/20: pain level of 3-5/10 in chest and ribcage; improved activity level but pain persists, needs patient education for listening to her body and not pushing too hard . LTG Duration 01/25/21 Two Impairment forward head, rounded shoulders Nursing Instructor Goal (LTG) Patient to demonstrate good understanding of neutral postural alignment and importance for decreased muscle tension and pain, and be able to self correct with minimal to no cues. 08/05/20: good progress with patient working on postural correction exercises as instructed, gently easing back into them plus gentle yoga at this time 11/26/20: difficult to attain neutral posture and maintain; needs cues and she feels needs constant attention, frequently causes increase in pain LTG Duration 01/25/21 One Impairment low activity tolerance Short Term Goal (STG) Establish HEP to include deep breathing, postural correction , shoulder ROM and strengthening , and walking program. 08/05/20: started prior to mastectomy and gently resumed after mastectomy, good progress. Will gently progress ther ex as tolerated. 11/26/20: doing well with stretching and ROM. ROM shoulders WNL. Has done mild resistance with yoga, needs guidance to initiate weight training safely STG Duration 12/26/20 Nursing Instructor Goal (LTG) Patient will be compliant with walking program 4x/wk and HEP and demonstrate shoulder ROM and strength WNL. 08/05/20: again,patient gently resuming HEP as instructed. ROM 75% 11/26/20: Hasn't been walking recently, was pulled over by her dog during a walk just after last PT session , was very sore, felt she strained through her chest, had to modify activity. Not going to resume walking at this time as dog is too strong, trying to focus on increasing heart rate with Mars and doing HEP and gentle yoga LTG Duration 01/25/21 Assessment Summary Assessment scar tissue mobility continues to improve, no significant swelling, less rib tenderness and less muscle spasms. Patient agreed to speak with physician about above mouth droop. Strength good bilateral UE's including carpenter refrigerator stronger on right vs left ( right handed). Patient monitoring own BP at home, has been NWL. Physical Therapy Plan Frequency and Duration Frequency of Treatment 1x/Week Duration of Treatment 8 weeks Plan of Care Start Date 11/26/20 Plan of Care End Date 01/25/21 Therapeutic Interventions Therapeutic Interventions Home Exercise Program,Manual Therapy,Neuromuscular Re- education,Patient/Caregiver Education,Self-Care/Home Management,Soft Tissue Mobilization,Therapeutic Activities,Therapeutic Exercises Modalities Hot Packs Next Visit Focus/Plan Next Note Type Treatment Note Next Visit Plan Continue PT to help patient fully achieve goals, emphasis on scar mobilization, ROM ex, progression of HEP.
--- NOTE | 2021-01-16 18:17 | PT.OTRE ---
Current Diagnoses Intraductal carcinoma in situ of left breast (01/16/21) Soft tissue disorder, unspecified (01/16/21) Weakness (01/16/21) Other malaise (01/16/21) Past Medical History (Last Reviewed 12/12/19 @ 13:22 by Jalil Pineda DO) Acne (2011) Animal dander allergy Back fracture (1999) Chicken pox (1972) Chronic back pain (1999) Clavicle fracture (1999) Cow's milk protein allergy Eczema (1998) 5 History of bilateral mastectomy (~07/08/20) History of shoulder surgery Joint pain (1978) Neuropathy (1999) Normal Papanicolaou smear Presence of intrauterine contraceptive device (10/07/17) PTSD (post-traumatic stress disorder) (1999) Reactive airway disease (1989) Recurrent anxiety (1999) Recurrent major depressive disorder, in remission (12/04/15) Right hand pain (2012) Seasonal allergic rhinitis due to pollen (1971) Shoulder pain Surgical History (Last Updated 09/27/20 @ 22:57 by Clara Mendoza DO) History of bilateral mastectomy (~07/08/20) History of shoulder surgery Visit Care Team Role Provider Type Clara Mendoza DO Attending Provider Physician Family Provider Primary Care Provider Referring Provider Specialty: [facility] Address: [address] [place] [address], [address], [facility] Email: [email or web address] Physical Therapy Re-Evaluation PT-OP-A Visit Information Start: 06/06/20 15:04 Freq: Status: Active Protocol: Document 01/16/21 09:51 [facility] (Rec: 01/16/21 10:32 [facility] [id number]) Out-Patient Physical Therapy Visit Information Visit Information Visit Type Re-Evaluation Visit Start Time 09:45 Visit Stop Time 10:40 Total Visit Minutes 55 Visit Number 26 Precautions Precautions PMH: neck pain s/p whiplash; MRI 02/19/20: 1. Most significant findings are at C5-C6. There is mild canal stenosis. There is severe right and moderate left foraminal narrowing. 2. Multilevel facet arthropathy Depression, anxiety: sees counselor History left clavicle fracture , back pain, PTSD PT-OP-B Current Condition Start: 06/06/20 15:04 Freq: Status: Active Protocol: Document 01/16/21 09:51 [facility] (Rec: 01/16/21 10:32 [facility] [id number]) Current Condition History of Current Condition Onset Date 07/16/20 Current Complaints bilateral mastectomy History of Current Condition DCIS diagnosed in all samples from a left breast biopsy in March. Subsequent MRI showed some assymetry between the lymph nodes in the left than the right and no lesions in the right breast. She is working with Dr. Watson to develop treatment plan which will include bilateral mastectomy and chemotherapy, possible radiation. Sees Dr. Watson 06/26/20 and also sees a merchandise supervisor that day. Patient reports fatigue, pain in bilateral shoulders, left subaxillary area. Patient is doing some yoga every morning, not doing any other exercise. Stress level high including daughter recently diagnosed with autoimmune disorder. 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 Prior Treatments and Tests diagnostic mammogram, biopsy, breast MRI. PT-OP-C Subjective Start: 06/06/20 15:04 Freq: Status: Active Protocol: Document 01/16/21 09:51 [facility] (Rec: 01/16/21 10:32 [facility] [id number]) OP-PT Subjective Patient Comments Patient Comments Had a difficult week, decreased self care due to having another heart event. No yoga, resistance ex. Did walk a few times. Helpful to have rest for a few days but is back to exercises . Had to take Propranolol due to elevated BP due to stress. PT-OP-N Lymphedema Start: 12/31/20 08:19 Freq: Status: Active Protocol: Document 12/26/20 09:54 [facility] (Rec: 12/31/20 08:22 [facility] [id number]) Lymphedema Measurements Upper Extremity Circumference Measurements left LE MCP 18 cm Dorsum of Hand 18.9 cm Wrist 16.6 cm 5 cm From Wrist Crease 18.2 cm 10 cm From Wrist Crease 21.2 cm 15 cm From Wrist Crease 24.4 cm 20 cm From Wrist Crease 26.4 cm 25 cm From Wrist Crease 27 cm 30 cm From Wrist Crease 29.9 cm 35 cm From Wrist Crease 30.9 cm 40 cm From Wrist Crease 31.2 cm 45 cm From Wrist Crease 33.5 cm Axilla 43.1 cm right UE MCP 19.2 cm Dorsum of Hand 19.5 cm Wrist 16.5 cm 5 cm From Wrist Crease 18.3 cm 10 cm From Wrist Crease 21.1 cm 15 cm From Wrist Crease 25 cm 20 cm From Wrist Crease 26.8 cm 25 cm From Wrist Crease 27.9 cm 30 cm From Wrist Crease 30.8 cm 35 cm From Wrist Crease 31.9 cm 40 cm From Wrist Crease 33.6 cm 45 cm From Wrist Crease 35.4 cm Axilla 43.6 cm PT-OP-Q Treatments Start: 06/06/20 15:04 Freq: Status: Active Protocol: Document 01/16/21 09:51 [facility] (Rec: 01/16/21 10:32 [facility] [id number]) Therapeutic Exercises Sidelying Exercises open book Reps/Minutes 5x ea Comments manual facil for end-range Manual Therapy Treatment Soft Tissue Mobilization upper thorax, chest, scar tissue Mobilization Type Instrument Assisted,Myofascial Release,Rolling Intensity/Depth Moderate Body Position Hooklying Comments medium suction tool; lifting, gliding, rotation Joint Mobilizations scapula Direction elevation, depression, retraction,upward rotation, pin and stretch Body Position Sidelying Comments also supine for pin and stretch lateral scapular border with shoulder elevation , muscle release felt with decrease in tightness and pain . PT-OP-R Modalities Start: 06/06/20 15:04 Freq: Status: Active Protocol: Document 01/16/21 09:51 [facility] (Rec: 01/16/21 10:32 [facility] [id number]) Hot Pack/Cold Pack Treatment Hot Pack Location chest Patient Position Hooklying Treatment Duration (minutes) 15 Patient Tolerance Good Comments extra towel layer for gentle heat. PT-OP-T Assessment and Plan Start: 06/06/20 15:04 Freq: Status: Active Protocol: Document 01/16/21 09:51 [facility] (Rec: 01/16/21 10:32 [facility] [id number]) Physical Therapy Assessment Goals Four Impairment soft tissue tightness anterior chest and should and decreased scar mobility Short Term Goal (STG) Patient to be instructed in gentle self-massage as part of her home management 08/05/20: started today with patient demonstrating good understanding STG Duration achieved Longterm Goal (LTG) Soft tissue mobility to be WNL including scar mobility anterior chest and shoulders to allow for full function bilateral UE's. Be able to sit and stand with neutral posture without pain or excess effort. 11/26/20: Steady improvement, still some spasms of pectoral muscles, pulling of scars with still some limited mobility. Having what she feels is good posture causes her pain ( feels like she has been punched in the ribs) LTG Duration 02/06/21 Three Impairment pain Longterm Goal (LTG) Patient will be independent with self-management of pain to include relaxation techniques, gentle exercise. 08/05/20: good goal progress following mastectomy has used deep breathing as instructed. 11/26/20: pain level of 3-5/10 in chest and ribcage; improved activity level but pain persists, needs patient education for listening to her body and not pushing too hard . 01/16/21: Improving exercise tolerance and ability to modify activity based on symptoms, mostly met. LTG Duration 02/06/21 Two Impairment forward head, rounded shoulders Flower Shop Manager Goal (LTG) Patient to demonstrate good understanding of neutral postural alignment and importance for decreased muscle tension and pain, and be able to self correct with minimal to no cues. 08/05/20: good progress with patient working on postural correction exercises as instructed, gently easing back into them plus gentle yoga at this time 11/26/20: difficult to attain neutral posture and maintain; needs cues and she feels needs constant attention, frequently causes increase in pain 01/16/21: good progress, have worked further on breathing exercises for rib mobility and soft tissue relaxation. LTG Duration 02/06/21 One Impairment low activity tolerance Short Term Goal (STG) Establish HEP to include deep breathing, postural correction , shoulder ROM and strengthening , and walking program. 08/05/20: started prior to mastectomy and gently resumed after mastectomy, good progress. Will gently progress ther ex as tolerated. 11/26/20: doing well with stretching and ROM. ROM shoulders WNL. Has done mild resistance with yoga, needs guidance to initiate weight training safely STG Duration 12/26/20 Longterm Goal (LTG) Patient will be compliant with walking program 4x/wk and HEP and demonstrate shoulder ROM and strength WNL. 08/05/20: again,patient gently resuming HEP as instructed. ROM 75% 11/26/20: Hasn't been walking recently, was pulled over by her dog during a walk just after last PT session , was very sore, felt she strained through her chest, had to modify activity. Not going to resume walking at this time as dog is too strong, trying to focus on increasing heart rate with Mars and doing HEP and gentle yoga 01/16/21: shoulder ROM 90%, good progress, palpable trigger points subaxillary and lateral border of scapula LTG Duration 02/06/21 Assessment Summary Assessment Good progress continues with exercise tolerance, shoulder ROM, understanding of safe exercise progression, no evidence for lymphedema in UE' s, congestion of trunk diminished. Have discussed benefits of compression and importance of monitoring for any changes, patient has obtained compression shirt. Patient would benefit from 1 further PT appointment to assure full shoulder ROM, independence with deep breathing exercises, ROM ex, strengthening ex, self mobilization of trigger points . Physical Therapy Plan Frequency and Duration Frequency of Treatment 2 visits Duration of Treatment 3 weeks Plan of Care Start Date 01/16/21 Plan of Care End Date 02/06/21 Therapeutic Interventions Therapeutic Interventions Home Exercise Program,Manual Therapy,Neuromuscular Re- education,Patient/Caregiver Education,Self-Care/Home Management,Soft Tissue Mobilization,Therapeutic Activities,Therapeutic Exercises Modalities Hot Packs Next Visit Focus/Plan Next Note Type Treatment Note Next Visit Plan Review HEP, self-care for soft tissue mobilization, lymphedema monitoring and self -treatment. Consider discharge after next visit if no other issues identified.
--- NOTE | 2021-01-30 17:22 | PT.OTN ---
Current Diagnoses Intraductal carcinoma in situ of left breast (01/30/21) Soft tissue disorder, unspecified (01/30/21) Weakness (01/30/21) Other malaise (01/30/21) Physical Therapy Treatment Note PT-OP-A Visit Information Start: 06/06/20 15:04 Freq: Status: Active Protocol: Document 01/30/21 09:49 [facility] (Rec: 01/30/21 10:35 [facility] [id number]) Out-Patient Physical Therapy Visit Information Visit Information Visit Type Treatment Note Visit Start Time 09:45 Visit Stop Time 10:40 Total Visit Minutes 55 Visit Number 27 Precautions Precautions PMH: neck pain s/p whiplash; MRI 02/19/20: 1. Most significant findings are at C5-C6. There is mild canal stenosis. There is severe right and moderate left foraminal narrowing. 2. Multilevel facet arthropathy Depression, anxiety: sees counselor History left clavicle fracture , back pain, PTSD PT-OP-B Current Condition Start: 06/06/20 15:04 Freq: Status: Active Protocol: Document 01/30/21 09:49 [facility] (Rec: 01/30/21 10:35 [facility] [id number]) Current Condition History of Current Condition Onset Date 07/16/20 Current Complaints bilateral mastectomy History of Current Condition DCIS diagnosed in all samples from a left breast biopsy in March. Subsequent MRI showed some assymetry between the lymph nodes in the left than the right and no lesions in the right breast. She is working with Dr. Watson to develop treatment plan which will include bilateral mastectomy and chemotherapy, possible radiation. Sees Dr. Watson 06/26/20 and also sees a warehouse foreman that day. Patient reports fatigue, pain in bilateral shoulders, left subaxillary area. Patient is doing some yoga every morning, not doing any other exercise. Stress level high including daughter recently diagnosed with autoimmune disorder. 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 Prior Treatments and Tests diagnostic mammogram, biopsy, breast MRI. PT-OP-C Subjective Start: 06/06/20 15:04 Freq: Status: Active Protocol: Document 01/30/21 09:49 [facility] (Rec: 01/30/21 10:35 [facility] [id number]) OP-PT Subjective Patient Comments Patient Comments 1x/wk having irregular heartbeat, has appointment with Dr. Mendoza. Feels doing well with HEP, self-care. Taking a little break from yoga this week, has obtained silicone cups which she is using and finding helpful. Still working hard to relax upper trap muscles and work on posture. Now able to tolerate open book and has started to be able to tolerate sidelying arm circles . Working on scheduling fun activities on her schedule. Agreeable to discharge today from PT. Has information to be able to contact PT-OP-N Lymphedema Start: 12/31/20 08:19 Freq: Status: Active Protocol: Document 12/26/20 09:54 [facility] (Rec: 12/31/20 08:22 [facility] [id number]) Lymphedema Measurements Upper Extremity Circumference Measurements left LE MCP 18 cm Dorsum of Hand 18.9 cm Wrist 16.6 cm 5 cm From Wrist Crease 18.2 cm 10 cm From Wrist Crease 21.2 cm 15 cm From Wrist Crease 24.4 cm 20 cm From Wrist Crease 26.4 cm 25 cm From Wrist Crease 27 cm 30 cm From Wrist Crease 29.9 cm 35 cm From Wrist Crease 30.9 cm 40 cm From Wrist Crease 31.2 cm 45 cm From Wrist Crease 33.5 cm Axilla 43.1 cm right UE MCP 19.2 cm Dorsum of Hand 19.5 cm Wrist 16.5 cm 5 cm From Wrist Crease 18.3 cm 10 cm From Wrist Crease 21.1 cm 15 cm From Wrist Crease 25 cm 20 cm From Wrist Crease 26.8 cm 25 cm From Wrist Crease 27.9 cm 30 cm From Wrist Crease 30.8 cm 35 cm From Wrist Crease 31.9 cm 40 cm From Wrist Crease 33.6 cm 45 cm From Wrist Crease 35.4 cm Axilla 43.6 cm PT-OP-Q Treatments Start: 06/06/20 15:04 Freq: Status: Active Protocol: Document 01/30/21 09:49 [facility] (Rec: 01/30/21 10:35 [facility] [id number]) Therapeutic Exercises Sidelying Exercises circles Reps/Minutes 5x Manual Therapy Treatment Soft Tissue Mobilization pin and stretch Body Location right subscap and lat Intensity/Depth Moderate Body Position Hooklying Comments with passive shoulder flexion upper thorax, chest, scar tissue Mobilization Type Instrument Assisted,Myofascial Release,Rolling Intensity/Depth Moderate Body Position Hooklying Comments medium suction tool; lifting, gliding, rotation Other Other Manual Treatments MMT darcy UE's ROM assessment: full ROM darcy UE's Self-Care/Home Management Treatment Education Other Education self mobilization lateral scapular border with raquetball Activities Self-Care/Home Management Activities Continue HEP, self-massage, deep breathing,yoga. Contact PT with any questions or difficulties PT-OP-R Modalities Start: 06/06/20 15:04 Freq: Status: Active Protocol: Document 01/30/21 09:49 [facility] (Rec: 01/30/21 10:35 [facility] [id number]) Hot Pack/Cold Pack Treatment Hot Pack Location chest Patient Position Hooklying Treatment Duration (minutes) 15 Patient Tolerance Good Comments extra towel layer for gentle heat. PT-OP-T Assessment and Plan Start: 06/06/20 15:04 Freq: Status: Active Protocol: Document 01/30/21 09:49 [facility] (Rec: 01/30/21 10:35 [facility] [id number]) Physical Therapy Assessment Goals Four Impairment soft tissue tightness anterior chest and should and decreased scar mobility Short Term Goal (STG) Patient to be instructed in gentle self-massage as part of her home management 08/05/20: started today with patient demonstrating good understanding STG Duration achieved Research Mechanic Goal (LTG) Soft tissue mobility to be WNL including scar mobility anterior chest and shoulders to allow for full function bilateral UE's. Be able to sit and stand with neutral posture without pain or excess effort. 11/26/20: Steady improvement, still some spasms of pectoral muscles, pulling of scars with still some limited mobility. Having what she feels is good posture causes her pain ( feels like she has been punched in the ribs) LTG Duration goal met Three Impairment pain [facility]iary Goal (LTG) Patient will be independent with self-management of pain to include relaxation techniques, gentle exercise. 08/05/20: good goal progress following mastectomy has used deep breathing as instructed. 11/26/20: pain level of 3-5/10 in chest and ribcage; improved activity level but pain persists, needs patient education for listening to her body and not pushing too hard . 01/16/21: Improving exercise tolerance and ability to modify activity based on symptoms, mostly met. LTG Duration goal met Two Impairment forward head, rounded shoulders Research Mechanic Goal (LTG) Patient to demonstrate good understanding of neutral postural alignment and importance for decreased muscle tension and pain, and be able to self correct with minimal to no cues. 08/05/20: good progress with patient working on postural correction exercises as instructed, gently easing back into them plus gentle yoga at this time 11/26/20: difficult to attain neutral posture and maintain; needs cues and she feels needs constant attention, frequently causes increase in pain 01/16/21: good progress, have worked further on breathing exercises for rib mobility and soft tissue relaxation. LTG Duration goal met One Impairment low activity tolerance Short Term Goal (STG) Establish HEP to include deep breathing, postural correction , shoulder ROM and strengthening , and walking program. 08/05/20: started prior to mastectomy and gently resumed after mastectomy, good progress. Will gently progress ther ex as tolerated. 11/26/20: doing well with stretching and ROM. ROM shoulders WNL. Has done mild resistance with yoga, needs guidance to initiate weight training safely STG Duration 12/26/20 [facility]iary Goal (LTG) Patient will be compliant with walking program 4x/wk and HEP and demonstrate shoulder ROM and strength WNL. 08/05/20: again,patient gently resuming HEP as instructed. ROM 75% 11/26/20: Hasn't been walking recently, was pulled over by her dog during a walk just after last PT session , was very sore, felt she strained through her chest, had to modify activity. Not going to resume walking at this time as dog is too strong, trying to focus on increasing heart rate with Mars and doing HEP and gentle yoga 01/16/21: shoulder ROM 90%, good progress, palpable trigger points subaxillary and lateral border of scapula LTG Duration goal met Assessment Summary Assessment Shoulder ROM has improved to 100%, pain variable but much decreased, scar mobility improved and patient demonstrates good understanding of self- managment. No signs or symptoms of lymphedema at this time. PT goals achieved and anticipate continued progress as patient is highly motivated and diligent with her home program. Plan discharge from PT at this time. Physical Therapy Plan Discharge Physical Therapy Discharge Reasons Goals Met
== END 2021-01-31 08:42 | disposition home or self-care (01) ==
LOC: PHYS 09:45
PROVIDERS: Family Provider Family Medicine; PCP Family Medicine; Referring Provider Family Medicine; Visit Provider Family Medicine
DX: D05.12 Intraductal carcinoma in situ of left breast (principal); R53.1 Weakness; R53.81 Other malaise; M79.9 Soft tissue disorder, unspecified
CPT/HCPCS: 97010; 97110; 97140; 97162; 97535

== ENCOUNTER 2021-07-13 13:54 | Emergency (ER) | payer OTHER, SELFPAY ==
[2021-07-13] VITALS (7 sets, daily range): BP systolic 95–123; BP diastolic 61–78; PULSE 56–82; RESP 8–20; TEMP 36.9; O2SAT 95–99
--- NOTE | 2021-07-13 14:00 | DI.RAD.S_ITS ---
PROCEDURE: XR CHEST 1V INDICATIONS: chest pain TECHNIQUE: One view of the chest was acquired. COMPARISON: [facility], CR, XR CHEST 1V, 04/23/2018, 17:37. FINDINGS: Surgical changes and devices: Surgical clips overlying the left axilla. Lungs and pleura: Streaky left basilar opacity. No pleural effusions or pneumothorax. Mediastinum: Mediastinal contours appear normal. Heart size is normal. Bones and chest wall: No suspicious bony lesions. Overlying soft tissues appear unremarkable. IMPRESSION: Streaky left basilar opacity which may represent developing pneumonia in the correct clinical setting. Dictated by: Gurjit Wolfe D.O. on 07/13/2021 at 13:56 Approved by: Gurjit Wolfe D.O. on 07/13/2021 at 13:58
--- NOTE | 2021-07-13 14:22 | ED.ARRPALP ---
HPI - Arrhythmia/Palpitations General Chief Complaint: Arrhythmia/Palpitations Stated Complaint: AFIB Time Seen by Provider: 07/13/21 14:22 Source: patient Mode of arrival: Ambulatory Limitations: no limitations History of Present Illness HPI narrative: 55-year-old female comes in for feeling ?fucked up?. Patient states that she has just felt unwell for the past 5 days she has had palpitations. But she has been taking her propranolol which he takes intermittently for palpitations. She states she does not take this on a daily basis. She does not have any daily medications. She has felt shaky and just off. She occasionally feels short of breath with these episodes if she has a fast heart rate but she has not felt that way. She has just felt irregular but not felt like her heart rate has been fast. She feels a tingling down both arms at times. Some headaches, no cold cough or congestion. She has had some nausea but no vomiting. No diarrhea constipation. No urinary symptoms. Patient does have a history of bilateral mastectomy for breast cancer in July of 2020. She is a year post mastectomy she did not have chemo or radiation. She had her most recent surveillance in June and was given a clean bill [employer]. No tobacco, alcohol or illicit. She states her parent are Worship scientist/engineer so she is unsure if they have medical issues but she does know her dad had colon cancer. Related Data Home Medications Medication Instructions Recorded Confirmed cholecalciferol (vitamin D3) 100 5,000 mcg PO Q DAY #0 10/30/16 04/21/21 mcg (4,000 unit) capsule (Vitamin D3) multivitamin (Multiple Vitamins) 1 tab PO Q DAY #0 10/30/16 04/21/21 naproxen sodium 220 mg tablet 220 mg PO Q8-12H PRN 11/27/17 04/21/21 (Aleve) Previous Rx's Medication Instructions Recorded azithromycin 250 mg tablet See Rx Instructions .ROUTE 07/13/21 .COMPLEX #4 tab Allergies Allergy/AdvReac Type Severity Reaction Status Date / Time cat dander Allergy Intermediate itchy Verified 04/21/21 15:32 eyes, runny nose, sinus imflamation dog dander Allergy Intermediate itchy Verified 04/21/21 15:32 eyes, runny nose, sinus imflamation adhesive AdvReac Intermediate Verified 04/21/21 15:32 Review of Systems Review of Systems ROS Unobtainable: All systems reviewed & are unremarkable except as noted in HPI and below Patient History Medical History Acne (2011) Animal dander allergy Back fracture (1999) Chicken pox (1972) Chronic back pain (1999) Clavicle fracture (1999) 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 Dysplastic nevus of right shoulder Eczema (1998) 5 Joint pain (1978) Melanocytic nevus Neuropathy (1999) Normal Papanicolaou smear Presence of intrauterine contraceptive device (10/07/17) PTSD (post-traumatic stress disorder) (1999) Reactive airway disease (1989) Recurrent anxiety (1999) Recurrent major depressive disorder, in remission (12/04/15) Right hand pain (2012) Seasonal allergic rhinitis due to pollen (1971) Shoulder pain Surgical History History of bilateral mastectomy (~07/08/20) History of shoulder surgery Family History Father Age: 82 Colon cancer Hypertension Mother No problems noted. Sister No problems noted. Social History Smoking Status: Former smoker Smoking Status: Former smoker Exam Narrative Exam Narrative: GENERAL: Alert and oriented x three, well-nourished female in mild distress HEENT: Head normocephalic, atraumatic, EOMI, pupils reactive, face symmetric, moist mucous membranes NECK: Supple, full range of motion CARDIOVASCULAR: Regular rate and rhythm without murmurs, rubs or gallops. RESPIRATORY: Breath sounds equal bilaterally, no wheezes rales or rhonchi. ABDOMEN: Soft, nontender. Normoactive bowel sounds all 4 quadrants. No guarding or rebound, rigidity, no mass : No CVA tenderness EXTREMITIES: Normal range of motion, no clubbing or edema. Neurovascularly intact NEUROLOGICAL: Cranial nerves II through XII grossly intact. Moving all extremities SKIN: Warm, dry, no petechiae, no rashes or lesions. Initial Vital Signs Initial Vital Signs: Vital Signs Temperature 98.5 F 07/13/21 13:56 Pulse Rate 82 07/13/21 13:56 Respiratory Rate 20 07/13/21 13:56 Blood Pressure 118/78 07/13/21 13:56 Pulse Oximetry 99 07/13/21 13:56 Course Orders Ordered: ED Orders 07/13/21 14:00 XR chest 1V Stat EKG-12 Lead Stat 07/13/21 14:15 Complete Blood Count AUTO DIFF Stat Comprehensive Metabolic Panel Stat Lipase Stat Magnesium Stat Troponin & CK Cardiac Panel Stat 07/13/21 14:25 COVID19 -Nasal swab/Pre-Proc Stat Discontinued Medications Azithromycin (Azithromycin 250 Mg Tablet) 500 mg PO NOW ONE Stop: 07/13/21 15:59 Last Admin: 07/13/21 16:05 Dose: 500 mg Documented by: ULYSSES Sodium Chloride (Normal Saline 0.9%) 1,000 mls @ 1,000 mls/hr IV BOLUS ONE Stop: 07/13/21 15:50 Last Infusion: 07/13/21 16:10 Dose: 0 mls/hr Documented by: Admin: 07/13/21 15:07 Dose: 1,000 mls/hr Documented by: LETI Vital Signs Vital signs: Vital Signs - 8 hr 07/13/21 13:56 07/13/21 14:14 07/13/21 14:16 Temperature 98.5 F Pulse Rate 82 73 68 Respiratory Rate 20 13 Blood Pressure 118/78 109/64 Pulse Oximetry 99 99 07/13/21 14:30 07/13/21 15:00 07/13/21 15:30 Temperature Pulse Rate 65 57 L 57 L Respiratory Rate 14 12 8 L Blood Pressure 97/61 104/61 95/62 Pulse Oximetry 97 95 97 07/13/21 15:41 Temperature Pulse Rate 56 L Respiratory Rate 14 Blood Pressure 123/66 Pulse Oximetry 99 MDM - Arrhythmia/Palpitations Lab Data Result diagrams: 07/13/21 14:15 07/13/21 14:15 Labs: Lab Results 07/13/21 07/13/21 07/13/21 Range/Units 14:15 14:15 14:25 WBC 9.7 (4.5-11.0) X10^3/uL RBC 5.08 (4.0-5.2) X10^6/uL Hgb 15.0 (12.0-16.0) g/dL Hct 43.4 (36-46) % MCV 85.3 (80-100) fL MCH 29.6 (26-34) PG MCHC 34.7 (30-36) % RDW 13.2 (11.6-14.8) % Plt Count 229 (150-400) X10^3/uL Neut % (Auto) 80.2 H (50-75) % Lymph % (Auto) 16.2 L (25-40) % [place]iaferro % (Auto) 2.5 L (3-14) % Eos % (Auto) 0.6 L (2-4) % Baso % (Auto) 0.5 (0-2) % Neut # (Auto) 7700 H (2803-2509) /uL Lymph # (Auto) 1600 (0969-8778) /uL [place]ferro # (Auto) 200 (0-900) /uL Eos # (Auto) 100 (0-450) /uL Baso # (Auto) 0 (0-100) /uL Sodium 142 (137-145) mmol/L Potassium 3.9 (3.4-5.1) mmol/L Chloride 107 (98-107) mmol/L Carbon Dioxide 31 (22-32) mmol/L BUN 11 (7-17) mg/dL Creatinine 0.87 (0.52-1.04) mg/dL Estimated GFR > 60.0 (>60) mL/min BUN/Creatinine Ratio 12.6 (6-22) Glucose 123 H (70-100) mg/dL Calcium 9.7 (8.4-10.2) mg/dL Magnesium 2.2 (1.6-2.3) mg/dL Total Bilirubin 1.0 (0.2-1.3) mg/dL AST 29 (14-36) IU/L ALT 21 (<35) IU/L Alkaline Phosphatase 99 (38-126) U/L Total Creatine Kinase 47 (30-135) U/L CK-MB (CK-2) TNP CK-MB (CK-2) Rel Index TNP Troponin I < 0.012 (0.01-0.034) ng/mL Total Protein 8.6 H (6.3-8.2) g/dL Albumin 4.6 (3.5-5.0) g/dL Globulin 4.0 (1.7-4.1) g/dL Albumin/Globulin Ratio 1.2 (1.0-2.8) Lipase 80 (23-300) U/L SARS-CoV-2 (PCR) Negative (Negative) Point of Care Testing Test Results Negative Urine Dip Bedside Urine Glucose Negative Bedside Urine Bilirubin - Negative Bedside Urine Ketone - Negative Urine Specific [place] 1.010 Bedside Urine Occult Blood - Negative Bedside Urine pH 7.0 Bedside Urine Protein - Negative Bedside Urine Urobilinogen - Negative Bedside Urine Nitrite - Negative Bedside Urine Leukocytes - Negative Esterase Imaging Data Chest x-ray: Radiologist's Impresson: [address] [address] XRay Report Signed Patient: Polina Antony MR#: [id number] : 1965 Acct:[id number] Age/Sex: 55 / F Date of Service: 07/13/21 Loc: ED Accession Number: [id number] ?? Procedure: XR chest 1V Ordering Provider: Angela Jackson D.O. PROCEDURE:? XR CHEST 1V ? INDICATIONS:? chest pain ? TECHNIQUE:? One view of the chest was acquired.? ? COMPARISON:? [facility], CR, XR CHEST 1V, 04/23/2018, 17:37. ? FINDINGS:? ? Surgical changes and devices:? Surgical clips overlying the left axilla.? ? Lungs and pleura:? Streaky left basilar opacity.? No pleural effusions or pneumothorax.? ? Mediastinum:? Mediastinal contours appear normal.? Heart size is normal.? ? Bones and chest wall:? No suspicious bony lesions.? Overlying soft tissues appear unremarkable.? ? IMPRESSION:? ? Streaky left basilar opacity which may represent developing pneumonia in the correct clinical setting. ? ? Dictated by: Gurjit Wolfe D.O. on 07/13/2021 at 13:56 ? ? Approved by: Gurjit Wolfe D.O. on 07/13/2021 at 13:58?? ECG Data Attestation: I personally reviewed and interpreted this ECG as follows: Prior ECG tracings: not available for review Interpretation: Sinus rhythm of 86 MD 1-2 6 QRS is 78 QTC of 430. No acute ST changes appreciated. RSR in 3 and AVF. No priors for comparison. MDM Narrative Medical decision making narrative: This is a 55-year-old female comes emergency department with concern for atrial fibrillation. She has a history of palpitations and states she takes propranolol intermittently. Labs, EKG were all reassuring chest x-ray shows possible pneumonia. She has not had a lot cough but she has felt very ill recently. COVID swab is negative and the pattern this less likely to reflect a COVID pneumonia. She started on oral antibiotics. Discharge Plan Departure Patient Disposition: Home Clinical Impression: Palpitations, Pneumonia Instructions: DI for Arrhythmias Activity Restrictions/Additional Instructions: Follow-up with your physicians. Your labs, EKG and imaging today show possible pneumonia but are otherwise reassuring. Take antibiotics until completely gone. [facility] [place] Please return for fevers, new or worsening chest pain, shortness of breath, persistent vomiting, lightheadedness or passing out or other new or concerning symptoms. Prescriptions: New azithromycin 250 mg tablet See Rx Instructions .ROUTE .COMPLEX Qty: 4 0RF Rx Instructions: For 250 mg dose pack: First dose given in ED 500mg, then 250 mg for 4 days (days 2-5) No Action naproxen sodium [Aleve] 220 mg tablet 220 mg PO Q8-12H PRN (Reason: Pain (Scale Score 1-3)) 0RF multivitamin [Multiple Vitamins] 1 EACH tablet 1 tab PO Q DAY Qty: 0 0RF Vitamin D3 4,000 UNIT capsule 5,000 mcg PO Q DAY Qty: 0 0RF Referrals: Clara Mendoza DO [Primary Care Provider] -
[2021-07-13 14:32] LABS: Add Manual Diff / Slide Review NO; Basophils Absolute Auto 0 /uL (0-100); Basophils Percent Auto 0.5 % (0-2); Eosinophils Absolute Auto 100 /uL (0-450); Eosinophils Percent Auto 0.6 % (2-4); Hematocrit 43.4 % (36-46); Lymphocytes Absolute Auto 1600 /uL (1100-4500); Lymphocytes Percent Auto 16.2 % (25-40); Mean Corpuscular HGB Conc 34.7 % (30-36); Mean Corpuscular Hemoglobin 29.6 PG (26-34); Mean Corpuscular Volume 85.3 fL (80-100); Monocytes Absolute Auto 200 /uL (0-900); Monocytes Percent Auto 2.5 % (3-14); Neutrophils Absolute Auto 7700 /uL (1500-7000); Neutrophils Percent Auto 80.2 % (50-75); Platelet Count 229 X10^3/uL (150-400); Red Blood Cell Count 5.08 X10^6/uL (4.0-5.2); Red Cell Distribution Width 13.2 % (11.6-14.8); White Blood Cell Count 9.7 X10^3/uL (4.5-11.0)
[2021-07-13 14:48] LABS: COVID19 -Nasal RAPID Negative (Negative)
[2021-07-13 14:51] LABS: Alanine Aminotransferase 21 IU/L (<35); Albumin 4.6 g/dL (3.5-5.0); Albumin Globulin Ratio 1.2 (1.0-2.8); Alkaline Phosphatase 99 U/L (38-126); Aspartate Aminotransferase 29 IU/L (14-36); BUN Creatinine Ratio 12.6 (6-22); Blood Urea Nitrogen 11 mg/dL (7-17); Calcium 9.7 mg/dL (8.4-10.2); Carbon Dioxide 31 mmol/L (22-32); Chloride 107 mmol/L (98-107); Creatine Kinase 47 U/L (30-135); Estimated Glomerular Filt Rate > 60.0 mL/min (>60); Glucose 123 mg/dL (70-100); HEMOLYSIS < 15 (0-50); Lipase 80 U/L (23-300); Magnesium 2.2 mg/dL (1.6-2.3); Potassium 3.9 mmol/L (3.4-5.1); Sodium 142 mmol/L (137-145); Total Protein 8.6 g/dL (6.3-8.2)
[2021-07-13 15:02] LABS: Troponin I < 0.012 ng/mL (0.01-0.034)
[2021-07-13] MEDS: SODIUM CHLORIDE 0.9% 1,000 ML 1000 ML IV (15:07)
[2021-07-13] MEDS: AZITHROMYCIN 250 MG TABLET 500 MG PO (16:05)
== END 2021-07-13 16:14 | disposition home or self-care (01) ==
PROVIDERS: Emergency Provider Emergency Medicine; Family Provider Family Medicine; PCP Family Medicine
DX: R00.2 Palpitations (principal); J18.9 Pneumonia, unspecified organism; Z20.822 Contact with and (suspected) exposure to COVID-19; Z87.891 Personal history of nicotine dependence
CPT/HCPCS: 36415; 71045; 80053; 81003; 81025; 82550; 83690; 83735; 84484; 85025; 87635; 93005; 93010; 96360; 99284; C9803

== ENCOUNTER → 2021-08-11 08:43 | Outpatient (CLI) | payer OTHER, SELFPAY ==
--- NOTE | 2021-09-04 15:57 | PM.CARDMON.1 ---
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 Referral & Results Date Patient Seen: 08/06/21 Requesting provider: Clara Mendoza Indication: Palpitations Duration of monitoring (days): 14 Diary information: There were 5 patient triggered events and 6 patient diary entries Patient triggered events were variably associated with (within 45 seconds) sinus rhythm, PACs, PVCs, and atrial fibrillation Patient diary events were variably associated with (within 45 seconds) sinus rhythm, PVCs, and atrial fibrillation Data: Minimum heart rate identified was 45 beats per minute at 18:31 on 08/12/2021 Maximum sinus heart rate was 140 beats per minute at 00:59 on 08/12/2021 Maximum overall heart rate was 199 beats per minute at 21:13 on 08/11/2021 during a run of atrial fibrillation Less than 1% of identified beats were ventricular or supraventricular ectopic in origin, which would classify them as rare. Patient had multiple episodes of atrial fibrillation identified the longest lasting 2 hours and 35 minutes with heart rate ranging overall between 77 and 199 beats per minute. Overall the burden of atrial fibrillation was less than 1% There were 6 runs of SVT with the longest lasting 11.3 seconds Impression: Patient with rare PVCs and PACs but also with episodes of atrial fibrillation and rare brief runs of SVT Patient's symptoms correlate with multiple dysrhythmias but most notably atrial fibrillation Clinical correlation suggested
== END ==
PROVIDERS: Family Provider Family Medicine; PCP Family Medicine; Referring Provider Family Medicine; Visit Provider Family Medicine
DX: R00.2 Palpitations (principal)
CPT/HCPCS: 93246; 93248

== ENCOUNTER → 2021-08-13 14:23 | Outpatient (CLI) | payer OTHER, SELFPAY ==
--- NOTE | 2021-08-13 | DI.RAD.S_ITS ---
PROCEDURE: XR CHEST 2V INDICATIONS: PNEUMONIA RELAPSE R/O TECHNIQUE: 2 views of the chest were acquired. COMPARISON: [facility], , XR CHEST 1V, 07/13/2021, 14:42. FINDINGS: Surgical changes and devices: Left chest wall cardiac device is seen. Lungs and pleura: There is mild pulmonary vascular congestion. No definite focal infiltrate. pleural effusions or pneumothorax. Mediastinum: Mediastinal contours are normal. Heart size is normal. Bones and chest wall: No suspicious bony abnormalities. Soft tissues appear unremarkable. IMPRESSION: Mild pulmonary vascular congestion. No definite focal infiltrate, pleural effusion or pneumothorax. Dictated by: Santana Bernal M.D. on 08/13/2021 at 15:53 Approved by: Santana Bernal M.D. on 08/13/2021 at 15:54
== END ==
PROVIDERS: Family Provider Family Medicine; PCP Family Medicine; Referring Provider Naturopath; Visit Provider Naturopath
DX: R09.89 Other specified symptoms and signs involving the circulatory and respiratory systems (principal); Z87.01 Personal history of pneumonia (recurrent)
CPT/HCPCS: 71046

== ENCOUNTER → 2021-11-20 09:54 | Outpatient (CLI) | payer OTHER, SELFPAY ==
[2021-11-20 16:07] LABS: Cholesterol 153 mg/dL (140-199); HDL Cholesterol 44 mg/dL (40-60); LDL Cholesterol Calculated 93 mg/dL (<100); Triglycerides 78 mg/dL (35-150)
[2021-11-20 16:38] LABS: TSH w/ Reflex to FT4 2.17 uIU/mL (0.47-4.68)
== END ==
PROVIDERS: Family Provider Family Medicine; PCP Family Medicine; Referring Provider Nurse Practitioner Acute Care; Visit Provider Nurse Practitioner Acute Care
DX: I49.9 Cardiac arrhythmia, unspecified (principal)
CPT/HCPCS: 36415; 80061; 84443

== ENCOUNTER → 2022-01-15 10:25 | Outpatient (CLI) | payer OTHER, SELFPAY ==
--- NOTE | 2022-01-15 10:28 | DI.RAD.S_ITS ---
PROCEDURE: XR CHEST 2V INDICATIONS: Personal history of pneumonia (recurrent) TECHNIQUE: 2 views of the chest were acquired. COMPARISON: [facility], , XR CHEST 2V, 08/13/2021, 14:22. FINDINGS: Surgical changes and devices: None. Lungs and pleura: Lungs are clear. No pleural effusions or pneumothorax. Mediastinum: Mediastinal contours are normal. Heart size is normal. Bones and chest wall: No suspicious bony abnormalities. Soft tissues appear unremarkable. IMPRESSION: Normal chest x-ray Approved by: Malick Hinkle M.D. on 01/15/2022 at 15:26
== END ==
PROVIDERS: Family Provider Family Medicine; PCP Pediatrics; Referring Provider Naturopath; Visit Provider Naturopath
DX: R06.02 Shortness of breath (principal); Z87.01 Personal history of pneumonia (recurrent)
CPT/HCPCS: 71046

== ENCOUNTER → 2022-02-11 13:20 | Outpatient (CLI) | payer OTHER, SELFPAY ==
--- NOTE | 2022-02-11 13:21 | DI.ECHO.S_ITS ---
[facility]---------+ [facility] +---------+ : : [address] : : : : [id number] : : : : Phone: [phone] Echocardiogram Report + + :Name: SHUKRI LO Study Date: 02/11/2022 Height: 67 in : :[facility] ReadingLocation: Weight: 165 lb : : Gender: Female BSA: 1.9 m2 : :: 1965 Age: 56 yrs BP: 127/81 mmHg: :Reason For Study: Arrhythmia : :Ordering Physician: LUIS, : :PAIGE Performed By: Neal Jung : :Referring: PAIGE SMITH : + + Interpretation Summary The ejection fraction is estimated to be 55-60%. Diastolic parameters suggest probable normal left ventricular diastolic function and normal filling pressures. The right ventricle is normal in size and function. There is trace aortic regurgitation. There is trace tricuspid regurgitation. The right ventricular systolic pressure is estimated to be at least 21 mmHg. Procedure: A two-dimensional transthoracic echocardiogram with color flow and Doppler was performed. The study quality was technically adequate. There is no prior echocardiogram noted for this patient. The patient was in normal sinus rhythm during the exam. Left Ventricle: The left ventricle is normal in size and wall thickness. Left ventricular systolic function is normal. The ejection fraction is estimated to be 55-60%. There are no focal wall motion abnormalities. Diastolic parameters suggest probable normal left ventricular diastolic function and normal filling pressures. Right Ventricle: The right ventricle is normal in size and function. Atria: Both atria are normal in size. The interatrial septum grossly appears intact with no obvious evidence for an atrial septal defect. Mitral Valve: The mitral valve is normal in structure and function. There is no mitral regurgitation noted. Aortic Valve: The aortic valve is trileaflet. There is no aortic valve stenosis. There is trace aortic regurgitation. Tricuspid Valve: The tricuspid valve is normal in structure and function. There is trace tricuspid regurgitation. The right ventricular systolic pressure is estimated to be at least 21 mmHg based on an estimated right atrial pressure of 3 mm Hg. Pulmonic Valve: The pulmonic valve is normal in structure and function. There is no pulmonic valvular regurgitation. Great Vessels: The aortic root is normal size. The dimensions of the ascending aorta are normal. The IVC is of normal diameter and collapses greater than 50% with a sniff. This suggests a low right atrial pressure of 3 mm Hg. Pericardium/ Pleura There is no pericardial effusion. There is no pleural effusion. MMode/2D Measurements & Calculations LVIDd: 4.8 cm LVOT diam: 2.1 cm LVIDs: 3.3 cm Ao root diam: 2.6 cm FS: 30.6 % asc Aorta Diam: 2.9 cm IVSd: 0.71 cm LVPWd: 0.81 cm LV harding. diameter/BSA (cm/m^2): 2.6 LV sys. diameter/BSA (cm/m^2): 1.8 LA A2 area: 14.7 cm2 RA long axis: 4.2 cm LA A4 area: 16.0 cm2 RA area: 12.7 cm2 LA length (vol): 4.8 cm RA vol: 32.4 ml LA vol: 41.4 ml RA : 17.4 ml/m2 LA vol index: 22.2 ml/m2 TAPSE: 2.1 cm Doppler Measurements & Calculations Ao V2 max: 131.1 cm/sec LVOT Max Christopher: 108.0 cm/sec Ao V2 mean: 90.1 cm/sec LV V1 max P.7 mmHg Ao max P.9 mmHg LV V1 VTI: 23.4 cm Ao mean P.7 mmHg ZOË(I,D): 2.7 cm2 Ao V2 VTI: 29.0 cm ZOË(V,D): 2.7 cm2 sev ratio: 0.81 ZOË indexed to BSA (cm^2/m^2): 1.4 MV E max christopher: 71.0 cm/sec TR max christopher: 211.0 cm/sec MV A max christopher: 71.8 cm/sec TR max P.8 mmHg MV E/A: 0.99 Med Peak E' Christopher: 7.9 cm/sec E/E' med: 9.0 Lat Peak E' Christopher: 10.7 cm/sec E/E' lat: 6.6 E/e' average: 7.8 MV dec time: 0.16 sec SV(LVOT): 77.3 ml Reading Physician:04:21 PM
[2022-02-11 16:21] LABS: COVID19 -Nasal RAPID Negative (Negative)
--- NOTE | 2022-02-11 18:50 | DI.NM.S_ITS ---
DATE OF SERVICE: 02/11/2022 PROCEDURE: Exercise perfusion study. INDICATION: Paroxysmal AFib. CARDIAC STRESS: The patient underwent exercise stress test under the supervision of an attending staff. She walked on Mark protocol for 12 minutes and achieved maximum heart rate of 163, which was 99 percent of target heart rate, 12.8 METs of workload and functional aerobic impairment -62 percent. Baseline blood pressure 115/70 mmHg and peak blood pressure 146/88 mmHg. Baseline rhythm was sinus with mild sinus bradycardia. During exercise, no convincing ischemic changes seen. The patient has rare PVCs without any ventricular tachycardia. No chest pain. Had some shortness of breath. CONCLUSION: 1. Exercise stress test is negative for inducible ischemia. 2. Excellent exercise tolerance. Achieved 12.8 metabolic equivalents of workload and functional aerobic impairment -62 percent. Normal hemodynamic response. No anginal symptoms or significant arrhythmias. Overall low-risk exercise stress test. Polina Antony - VASQUEZ/pool/jacobo doc#: [id number]/job#: [id number] dd: 02/11/2022 17:06:00 dt: 02/11/2022 18:12:00 DICTATING /COPIES TO: Sánchez Mandel MD COPIES MNE: YORDY;
== END ==
PROVIDERS: Family Provider Family Medicine; PCP Pediatrics; Referring Provider Nurse Practitioner Acute Care; Visit Provider Nurse Practitioner Acute Care
DX: I49.9 Cardiac arrhythmia, unspecified (principal); I48.0 Paroxysmal atrial fibrillation; Z20.822 Contact with and (suspected) exposure to COVID-19
CPT/HCPCS: 87635; 93017; 93306

== ENCOUNTER 2022-04-07 19:47 | Emergency (ER) | payer OTHER, SELFPAY ==
[2022-04-07 19:53] VITALS: BP 131/100; PULSE 123; RESP 17; TEMP 35.9; O2SAT 99; BMI 25.8
--- NOTE | 2022-04-07 20:00 | DI.RAD.S_ITS ---
PROCEDURE: XR CHEST 1V INDICATIONS: chest pain TECHNIQUE: One view of the chest was acquired. COMPARISON: [facility], CR, XR CHEST 2V, 01/15/2022, 10:23. FINDINGS: Surgical changes and devices: There is surgical clips redemonstrated in the left axilla. Lungs and pleura: Lungs are clear. No pleural effusions or pneumothorax. Mediastinum: Mediastinal contours appear normal. Heart size is normal. Bones and chest wall: No suspicious bony lesions. Overlying soft tissues appear unremarkable. IMPRESSION: 1. No acute cardiopulmonary disease. Dictated by: Yogi Maldonado M.D. on 04/07/2022 at 21:34 Approved by: Yogi Maldonado M.D. on 04/07/2022 at 21:35
[2022-04-07 20:43] LABS: Alanine Aminotransferase 15 IU/L (<35); Albumin 4.4 g/dL (3.5-5.0); Albumin Globulin Ratio 1.2 (1.0-2.8); Alkaline Phosphatase 93 U/L (38-126); Aspartate Aminotransferase 22 IU/L (14-36); BUN Creatinine Ratio 9.9 (6-22); Bilirubin Total 0.3 mg/dL (0.2-1.3); Blood Urea Nitrogen 9 mg/dL (7-17); Calcium 8.8 mg/dL (8.4-10.2); Carbon Dioxide 28 mmol/L (22-32); Chloride 106 mmol/L (98-107); Creatine Kinase 49 U/L (30-135); Estimated Glomerular Filt Rate > 60 mL/min (>60); Globulin 3.7 g/dL (1.7-4.1); Glucose 116 mg/dL (70-100); HEMOLYSIS < 15 (0-50); Lipase 129 U/L (23-300); Potassium 3.5 mmol/L (3.4-5.1); Sodium 144 mmol/L (137-145); Total Protein 8.1 g/dL (6.3-8.2)
[2022-04-07 20:46] LABS: Add Manual Diff / Slide Review NO; Basophils Absolute Auto 100 /uL (0-100); Basophils Percent Auto 0.7 % (0-2); Eosinophils Absolute Auto 100 /uL (0-450); Eosinophils Percent Auto 1.4 % (2-4); Hematocrit 45.2 % (36-46); Hemoglobin 15.2 g/dL (12.0-16.0); Lymphocytes Absolute Auto 2800 /uL (1100-4500); Lymphocytes Percent Auto 31.3 % (25-40); Mean Corpuscular HGB Conc 33.7 % (30-36); Mean Corpuscular Hemoglobin 29.4 PG (26-34); Mean Corpuscular Volume 87.3 fL (80-100); Monocytes Absolute Auto 600 /uL (0-900); Monocytes Percent Auto 7.2 % (3-14); Neutrophils Absolute Auto 5200 /uL (1500-7000); Neutrophils Percent Auto 59.4 % (50-75); Platelet Count 227 X10^3/uL (150-400); Red Blood Cell Count 5.17 X10^6/uL (4.0-5.2); Red Cell Distribution Width 13.6 % (11.6-14.8); White Blood Cell Count 8.8 X10^3/uL (4.5-11.0)
[2022-04-07 20:54] LABS: Troponin I < 0.012 ng/mL (0.01-0.034)
--- NOTE | 2022-04-07 21:05 | ED.CHESTPAIN ---
HPI - Chest Pain General Chief Complaint: Chest Pain Stated Complaint: Afib chest pain Time Seen by Provider: 04/07/22 20:14 Source: patient Mode of arrival: Ambulatory History of Present Illness HPI narrative: Patient is a 56-year-old female history of breast CA with bilateral mastectomy is atrial fibrillation presenting today with chest pain. He states that around 6:00 p.m. she started feeling her heart beating in her throat and was having some chest discomfort. She is found to be in AFib with RVR is heart rate in the 120s. She says she was recently started on Eliquis by days ago when she went to see her PCP was concerned that she might be having TIAs. She has intermittently had some numbness and tingling in her face and arms. No significant weakness. She denies any of the symptoms at this time. She says she was diagnosed with atrial fibrillation about a year ago and has been only taking metoprolol and aspirin in till a few days ago. Related Data Home Medications Medication Instructions Recorded Confirmed cholecalciferol (vitamin D3) 100 5,000 mcg PO Q DAY ##0 10/30/16 09/19/21 mcg (4,000 unit) capsule (Vitamin D3) multivitamin (Multiple Vitamins 1 tab PO Q DAY ##0 10/30/16 09/19/21 tablet) naproxen sodium 220 mg tablet 220 mg PO Q8-12H PRN Pain (Scale 11/27/17 09/19/21 (Aleve) Score 1-3) Previous Rx's Medication Instructions Recorded propranolol 10 mg tablet See Rx Instructions .Route 10/21/21 .COMPLEX #30 tabs azithromycin 250 mg tablet See Rx Instructions PO .COMPLEX #6 12/11/21 tabs Allergies Allergy/AdvReac Type Severity Reaction Status Date / Time cat dander Allergy Intermediate itchy Verified 04/21/21 15:32 eyes, runny nose, sinus imflamation dog dander Allergy Intermediate itchy Verified 04/21/21 15:32 eyes, runny nose, sinus imflamation adhesive AdvReac Intermediate Verified 04/21/21 15:32 Review of Systems Review of Systems Narrative: GENERAL: Denies chills, fatigue, malaise, fever, sweats, travel HEENT: Denies sinus pain, ear pain, sore throat, difficulty swallowing, neck pain RESPIRATORY: Denies dyspnea, cough, wheezing, hemoptysis, sputum. CARDIOVASCULAR: See HPI GASTROINTESTINAL: Denies nausea, vomiting, abdominal pain, diarrhea, constipation, melena. : Denies dysuria, frequency, incontinence, hematuria, urinary retention, flank pain. MUSCULOSKELETAL: Denies weakness, joint pain, or bony pain SKIN: No rash, no erythema, no pruritus NEUROLOGIC: see HPI PSYCHIATRIC: No concerning psychosocial issues. 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 Dysplastic nevus of right shoulder Eczema (1998) 5 Joint pain (1978) Melanocytic nevus Neuropathy (1999) Normal Papanicolaou smear Presence of intrauterine contraceptive device (10/07/17) PTSD (post-traumatic stress disorder) (1999) Reactive airway disease (1989) Recurrent anxiety (1999) Recurrent major depressive disorder, in remission (12/04/15) Right hand pain (2012) Seasonal allergic rhinitis due to pollen (1971) Shoulder pain Surgical History History of bilateral mastectomy (~07/08/20) History of shoulder surgery Family History Father Age: 83 Colon cancer Hypertension Mother No problems noted. Sister No problems noted. Social History Smoking Status: Former smoker Smoking Status: Former smoker alcohol intake frequency: 0-2 drinks per day Substance Use Type: does not use Exam Initial Vital Signs Initial Vital Signs: Vital Signs Temperature 96.7 F L 04/07/22 19:53 Pulse Rate 123 H 04/07/22 19:53 Respiratory Rate 17 04/07/22 19:53 Blood Pressure 131/100 H 04/07/22 19:53 Pulse Oximetry 99 04/07/22 19:53 Oxygen Delivery Method 04/07/22 19:53 GENERAL: 56-year-old female and in no acute distress. HEENT: Head atraumatic,EOMI, pupils reactive, face symmetric, moist mucous membranes CARDIOVASCULAR: Irregularly irregular tachycardic RESPIRATORY: Breath sounds equal bilaterally, no wheezes rales or rhonchi. ABDOMEN: Soft, nontender. Normoactive bowel sounds all 4 quadrants. No guarding or rebound. EXTREMITIES: Normal range of motion, no clubbing or edema. Neurovascularly intact NEUROLOGICAL: Alert and oriented x4.Normal gait and speech. Cranial nerves II through XII grossly intact. Good hlcozh-tf-vxkt, good wvtv-ls-pakg, strength equal bilaterally, no dysarthria or aphasia, sensation in tact to soft touch bilaterally, no visual changes, no facial droop SKIN: Warm, dry, no laceration, no petechiae, no rashes or lesions. Course Orders Ordered: ED Orders 04/07/22 20:00 XR chest 1V Stat 04/07/22 20:11 EKG-12 Lead Stat 04/07/22 20:13 BNP [NT-proBNP (BNP-Adult 18+)] Stat COVID19 -Nasal RAPID/Pre-Proc Stat Complete Blood Count AUTO DIFF Stat Comprehensive Metabolic Panel Stat Lipase Stat Magnesium Stat TSH [Thyroid Stimulating Hormone] Stat Troponin & CK Cardiac Panel Stat 04/08/22 22:05 EKG-12 Lead Routine Discontinued Medications Diltiazem HCl (Diltiazem 5 Mg/Ml Sdv) 10 mg IV NOW ONE Stop: 04/07/22 21:06 Last Admin: 04/07/22 21:16 Dose: 10 mg Documented By: KARTHIK Vital Signs Vital signs: Vital Signs - 8 hr 04/07/22 21:13 04/07/22 21:16 04/07/22 21:24 Pulse Rate 144 H 160 H 109 H Respiratory Rate 16 16 Blood Pressure 110/70 110/70 110/82 Pulse Oximetry 95 97 Oxygen Delivery Method Room Air 04/07/22 21:42 04/07/22 22:40 Pulse Rate 110 H 75 Respiratory Rate 16 Blood Pressure 108/75 Pulse Oximetry 98 Oxygen Delivery Method Room Air MDM - Chest Pain Lab Data Result diagrams: 04/07/22 20:13 04/07/22 20:13 Labs: Lab Results 04/07/22 04/07/22 04/07/22 Range/Units 20:13 20:13 20:13 WBC 8.8 (4.5-11.0) X10^3/uL RBC 5.17 (4.0-5.2) X10^6/uL Hgb 15.2 (12.0-16.0) g/dL Hct 45.2 (36-46) % MCV 87.3 (80-100) fL MCH 29.4 (26-34) PG MCHC 33.7 (30-36) % RDW 13.6 (11.6-14.8) % Plt Count 227 (150-400) X10^3/uL Neut % (Auto) 59.4 (50-75) % Lymph % (Auto) 31.3 (25-40) % [place] % (Auto) 7.2 (3-14) % Eos % (Auto) 1.4 L (2-4) % Baso % (Auto) 0.7 (0-2) % Neut # (Auto) 5200 (2776-8737) /uL Lymph # (Auto) 2800 (4741-7652) /uL [place] # (Auto) 600 (0-900) /uL Eos # (Auto) 100 (0-450) /uL Baso # (Auto) 100 (0-100) /uL Sodium 144 (137-145) mmol/L Potassium 3.5 (3.4-5.1) mmol/L Chloride 106 (98-107) mmol/L Carbon Dioxide 28 (22-32) mmol/L BUN 9 (7-17) mg/dL Creatinine 0.91 (0.52-1.04) mg/dL Estimated GFR > 60 (>60) mL/min BUN/Creatinine Ratio 9.9 (6-22) Glucose 116 H (70-100) mg/dL Calcium 8.8 (8.4-10.2) mg/dL Magnesium 2.0 (1.6-2.3) mg/dL Total Bilirubin 0.3 (0.2-1.3) mg/dL AST 22 (14-36) IU/L ALT 15 (<35) IU/L Alkaline Phosphatase 93 (38-126) U/L Total Creatine Kinase 49 (30-135) U/L CK-MB (CK-2) TNP CK-MB (CK-2) Rel Index TNP Troponin I < 0.012 (0.01-0.034) ng/mL NT-Pro-B Natriuret Pep (<125) pg/mL Total Protein 8.1 (6.3-8.2) g/dL Albumin 4.4 (3.5-5.0) g/dL Globulin 3.7 (1.7-4.1) g/dL Albumin/Globulin Ratio 1.2 (1.0-2.8) Lipase 129 (23-300) U/L TSH (0.47-4.68) uIU/mL SARS-CoV-2 (PCR) Negative (Negative) 04/07/22 04/07/22 Range/Units 20:13 20:13 WBC (4.5-11.0) X10^3/uL RBC (4.0-5.2) X10^6/uL Hgb (12.0-16.0) g/dL Hct (36-46) % MCV (80-100) fL MCH (26-34) PG MCHC (30-36) % RDW (11.6-14.8) % Plt Count (150-400) X10^3/uL Neut % (Auto) (50-75) % Lymph % (Auto) (25-40) % [place] % (Auto) (3-14) % Eos % (Auto) (2-4) % Baso % (Auto) (0-2) % Neut # (Auto) (7410-0291) /uL Lymph # (Auto) (3530-1644) /uL [place] # (Auto) (0-900) /uL Eos # (Auto) (0-450) /uL Baso # (Auto) (0-100) /uL Sodium (137-145) mmol/L Potassium (3.4-5.1) mmol/L Chloride (98-107) mmol/L Carbon Dioxide (22-32) mmol/L BUN (7-17) mg/dL Creatinine (0.52-1.04) mg/dL Estimated GFR (>60) mL/min BUN/Creatinine Ratio (6-22) Glucose (70-100) mg/dL Calcium (8.4-10.2) mg/dL Magnesium (1.6-2.3) mg/dL Total Bilirubin (0.2-1.3) mg/dL AST (14-36) IU/L ALT (<35) IU/L Alkaline Phosphatase (38-126) U/L Total Creatine Kinase (30-135) U/L CK-MB (CK-2) CK-MB (CK-2) Rel Index Troponin I (0.01-0.034) ng/mL NT-Pro-B Natriuret Pep 122 (<125) pg/mL Total Protein (6.3-8.2) g/dL Albumin (3.5-5.0) g/dL Globulin (1.7-4.1) g/dL Albumin/Globulin Ratio (1.0-2.8) Lipase (23-300) U/L TSH 5.32 H (0.47-4.68) uIU/mL SARS-CoV-2 (PCR) (Negative) Imaging Data Chest x-ray: Radiologist's Impression: Signed Patient: Polina Antony MR#: [id number] : 1965 Acct:[id number] Age/Sex: 56 / F Date of Service: 04/07/22 Loc: ED Accession Number: [id number] ?? Procedure: XR chest 1V Ordering Provider: Emerald Boudreaux D.O. PROCEDURE:? XR CHEST 1V ? INDICATIONS:? chest pain ? TECHNIQUE:? One view of the chest was acquired.? ? COMPARISON:? [facility], , XR CHEST 2V, 01/15/2022, 10:23. ? FINDINGS:? ? Surgical changes and devices:? There is surgical clips redemonstrated in the left axilla. ? Lungs and pleura:? Lungs are clear.? No pleural effusions or pneumothorax.? ? Mediastinum:? Mediastinal contours appear normal.? Heart size is normal.? ? Bones and chest wall:? No suspicious bony lesions.? Overlying soft tissues appear unremarkable.? ? IMPRESSION:? ? 1.? No acute cardiopulmonary disease. ? ? ? Dictated by: Yogi Maldonado M.D. on 04/07/2022 at 21:34 ?? ECG Data Interpretation: EKG 1. Atrial fibrillation rate 136 EKG 2. Sinus rhythm rate 81 DC interval 190 QRS [address] changes no T-wave inversion MDM Narrative Medical decision making narrative: Patient was having palpitations into her neck. Noted to be in AFib with RVR. Symptoms of some numbness tingling weakness on going and actually not present at this visit. She was started on Eliquis 5 days. Do have concerns for cardioversion, with TIA like symptoms and not long enough on anticoagulation. She did have a recent echo in February which did not show any thrombus or PFO. Fortunately patient spontaneously converted after Cardizem is overall feeling better. TSH is noted to be slightly elevated at 5 she can follow up with her PCP in regards to that. At this time no need for admission to the hospital. Patient having any stroke-like symptoms at this time and has been started on Eliquis Discharge Plan Departure Patient Disposition: Home Clinical Impression: Atrial fibrillation Activity Restrictions/Additional Instructions: *You have been diagnosed with atrial fibrillation *What to do: At this time he spontaneously converted. Continue your Eliquis. Follow up with her PCP in regards to your thyroid you may need treatment for this. TSH today is 5.3 *Continue to take medications as directed *Follow up with your primary care provider in 2-3 days or call [phone] *Return to ER if you should have persistent palpitations chest pain dizziness lightheadedness or any new, worsening or concerning symptoms Prescriptions: No Action naproxen sodium [Aleve] 220 mg tablet 220 mg PO Q8-12H PRN (Reason: Pain (Scale Score 1-3)) multivitamin [Multiple Vitamins] 1 EACH tablet 1 tab PO Q DAY Qty: 0 Vitamin D3 4,000 UNIT capsule 5,000 mcg PO Q DAY Qty: 0 propranolol 10 mg tablet See Rx Instructions .ROUTE .COMPLEX Qty: 30 0RF Dose Instruction: TAKE 1 TABLET BY MOUTH THREE TIMES DAILY NEEDED FOR ANXIETY Rx Instructions: TAKE 1 TABLET BY MOUTH THREE TIMES DAILY NEEDED FOR ANXIETY azithromycin 250 mg tablet See Rx Instructions PO .COMPLEX Qty: 6 0RF Rx Instructions: For 250 mg dose pack: take 500 mg today (day 1), then 250 mg for 4 days (days 2-5) PO Referrals: Alejo Rendon MD [Primary Care Provider] - Visit Report Forms: Patient Portal/API
[2022-04-07 21:13] VITALS: BP 110/70; PULSE 144; RESP 16; O2SAT 95
[2022-04-07 21:16] VITALS: BP 110/70; PULSE 160
[2022-04-07 21:16] LABS: COVID19 -Nasal RAPID Negative (Negative)
[2022-04-07] MEDS: dilTIAZem 5 MG/ML SDV 10 MG IV (21:16)
[2022-04-07 21:24] VITALS: BP 110/82; PULSE 109; RESP 16; O2SAT 97
[2022-04-07 21:42] VITALS: PULSE 110
[2022-04-07 21:49] LABS: NT-proBNP (BNP-Adult 18+) 122 pg/mL (<125)
--- NOTE | 2022-04-07 22:07 | PC.NURSE ---
Patient appears to have converted into a Normal Sinus. EKG completed and given to Dr. Boudreaux. Patient denies any pain or discomfort. Denies any palpitations.
[2022-04-07 22:10] LABS: Thyroid Stimulating Hormone 5.32 uIU/mL (0.47-4.68)
[2022-04-07 22:40] VITALS: BP 108/75; PULSE 75; RESP 16; O2SAT 98
== END 2022-04-07 22:45 | disposition home or self-care (01) ==
PROVIDERS: Emergency Provider Emergency Medicine; Family Provider Family Medicine; PCP Pediatrics
DX: I48.91 Unspecified atrial fibrillation (principal); Z79.01 Long term (current) use of anticoagulants; Z20.822 Contact with and (suspected) exposure to COVID-19
CPT/HCPCS: 36415; 71045; 80053; 82550; 83690; 83735; 83880; 84443; 84484; 85025; 87635; 93005; 96374; 99284; C9803

== ENCOUNTER 2022-04-14 12:09 | Emergency (ER) | payer OTHER, SELFPAY ==
[2022-04-14 12:12] VITALS: BP 144/85; PULSE 65; RESP 18; TEMP 36.4; O2SAT 99; BMI 25.8
--- NOTE | 2022-04-14 12:21 | DI.RAD.S_ITS ---
PROCEDURE: XR CHEST 1V INDICATIONS: Possible stroke TECHNIQUE: One view of the chest was acquired. COMPARISON: [facility], CR, XR CHEST 1V, 04/07/2022, 20:13. FINDINGS: Surgical changes and devices: None. Lungs and pleura: Lungs are clear. No pleural effusions or pneumothorax. Mediastinum: Mediastinal contours appear normal. Heart size is normal. Bones and chest wall: No suspicious bony lesions. Overlying soft tissues appear unremarkable. IMPRESSION: No acute cardiopulmonary process demonstrated radiographically. Dictated by: Zachary Gtz M.D. on 04/14/2022 at 12:56 Approved by: Zachary Gtz M.D. on 04/14/2022 at 12:56
--- NOTE | 2022-04-14 12:21 | DI.CT.S_ITS ---
PROCEDURE: CT ANGIO HEAD AND NECK INDICATIONS: Possible stroke TECHNIQUE: Pre-contrast 4.5 mm thick sections acquired from the foramen magnum to the vertex. After the administration of intravenous contrast, 1 mm thick sections acquired from the aortic arch through the [place] of [place]. Post-contrast 4.5 mm thick sections then re-acquired from the foramen magnum to the vertex. 3-dimensional gosvjfw-dzvqtdsrz-idmufclhon (MIP) and/or volume rendering reformats were acquired of the central intracranial vasculature and neck separately. For radiation dose reduction, the following was used: automated exposure control, adjustment of mA and/or kV according to patient size. COMPARISON: None. FINDINGS: Image quality: Excellent. BRAIN: CSF spaces: Ventricles are normal in size and shape. Basal cisterns are patent. No extra-axial fluid collections. Brain: No midline shift. No intracranial bleeds or masses. Cain-white matter interface appears intact. Skull and face: Calvarium and facial bones appear intact, without suspicious lesions. Orbits appear normal. Sinuses: Sinuses and mastoids are clear. HEAD CT ANGIOGRAPHY: Anterior circulation: Intracranial internal carotid arteries are normal in size and flow. The flow within the paired anterior cerebral arteries is normal and symmetric. The flow within the middle cerebral arteries is normal and symmetric. The anterior communicating artery is seen. No aneurysms are seen. Posterior circulation: Visualized portions of the vertebral arteries demonstrate normal caliber, and join to form a normal appearing basilar artery. Flow within the posterior cerebral arteries is normal and symmetric. No aneurysms are seen. NECK CT ANGIOGRAPHY: Carotid system: The great vessels demonstrate a conventional anatomy as they arise from the aortic arch. The origins of the common carotid arteries appear patent. The common carotid arteries demonstrate normal caliber and courses. The bifurcation regions are both widely patent. The internal carotid arteries demonstrate normal calibers and courses. Posterior circulation: The origins of the vertebral arteries both appear widely patent. The more superior extracranial portions of both vertebral arteries also demonstrate normal courses and calibers. They join to form a normal appearing basilar artery. Soft tissues: Visualized neck soft tissues demonstrate no suspicious abnormalities. Bones: No suspicious bony lesions. Visualized cervical spine appears normally aligned. IMPRESSION: No acute intracranial finding. No hemodynamically significant stenosis or occlusion of the major intracranial arterial circulation. Major arterial cervical vasculature appears widely patent. Any quantitative measurements of stenosis were performed using NASCET criteria. Dictated by: Zachary Gtz M.D. on 04/14/2022 at 13:05 Approved by: Zachary Gtz M.D. on 04/14/2022 at 13:07
--- NOTE | 2022-04-14 12:21 | DI.CT.S_ITS ---
PROCEDURE: CT STROKE INDICATIONS: Positive BE-FAST, Stroke symptoms TECHNIQUE: Noncontrast 4.5 mm thick angled axial sections acquired from the foramen magnum to the vertex, with coronal reformats. For radiation dose reduction, the following was used: automated exposure control, adjustment of mA and/or kV according to patient size. COMPARISON: None. FINDINGS: Image quality: Excellent. CSF spaces: Basal cisterns are patent. No extra-axial fluid collections. Ventricles are normal in size and shape. Brain: No midline shift. No intracranial masses or hemorrhage. Cain-white matter interface is normal. Skull and face: Calvarium and visualized facial bones are intact, without suspicious lesions. Sinuses: Visualized sinuses and mastoids are clear. IMPRESSION: Normal head CT. Results discussed with Dr. Jackson at time of dictation. This study fulfills neurological imaging criteria for inclusion or exclusion of acute stroke therapies based on available published neurological imaging guidelines. Dictated by: Zachary Gtz M.D. on 04/14/2022 at 12:59 Approved by: Zachary Gtz M.D. on 04/14/2022 at 13:03
[2022-04-14 12:38] LABS: Add Manual Diff / Slide Review NO; Basophils Absolute Auto 100 /uL (0-100); Basophils Percent Auto 0.7 % (0-2); Eosinophils Absolute Auto 200 /uL (0-450); Hematocrit 41.7 % (36-46); Hemoglobin 14.3 g/dL (12.0-16.0); Lymphocytes Absolute Auto 2400 /uL (1100-4500); Lymphocytes Percent Auto 28.9 % (25-40); Mean Corpuscular HGB Conc 34.4 % (30-36); Mean Corpuscular Hemoglobin 29.8 PG (26-34); Mean Corpuscular Volume 86.5 fL (80-100); Monocytes Absolute Auto 700 /uL (0-900); Monocytes Percent Auto 8.3 % (3-14); Neutrophils Absolute Auto 4900 /uL (1500-7000); Neutrophils Percent Auto 60.1 % (50-75); Platelet Count 206 X10^3/uL (150-400); Red Blood Cell Count 4.82 X10^6/uL (4.0-5.2); Red Cell Distribution Width 13.2 % (11.6-14.8); White Blood Cell Count 8.2 X10^3/uL (4.5-11.0)
[2022-04-14 12:45] LABS: INR 1.4 (0.9-1.3); Prothrombin Time 16.1 SECONDS (10.1-12.7)
[2022-04-14 12:48] LABS: PTT Partial Thromboplastin Tim 38 SECONDS (26-36)
[2022-04-14 12:50] LABS: Alanine Aminotransferase 14 IU/L (<35); Albumin 4.5 g/dL (3.5-5.0); Albumin Globulin Ratio 1.2 (1.0-2.8); Alkaline Phosphatase 87 U/L (38-126); Aspartate Aminotransferase 23 IU/L (14-36); BUN Creatinine Ratio 18.8 (6-22); Bilirubin Total 0.6 mg/dL (0.2-1.3); Blood Urea Nitrogen 18 mg/dL (7-17); Calcium 9.1 mg/dL (8.4-10.2); Carbon Dioxide 31 mmol/L (22-32); Chloride 102 mmol/L (98-107); Creatine Kinase 45 U/L (30-135); Estimated Glomerular Filt Rate > 60 mL/min (>60); Globulin 3.7 g/dL (1.7-4.1); Glucose 78 mg/dL (70-100); HEMOLYSIS < 15 (0-50); Potassium 4.2 mmol/L (3.4-5.1); Sodium 142 mmol/L (137-145); Total Protein 8.2 g/dL (6.3-8.2)
[2022-04-14 13:01] LABS: Troponin I < 0.012 ng/mL (0.01-0.034)
--- NOTE | 2022-04-14 15:52 | ED_ITS ---
HPI - Neuro Symptoms/Deficit <Kylee Ann PA-C - Last Filed: 04/14/22 19:34> General Chief Complaint: Neuro Symptoms/Deficit Stated Complaint: Hx.of TIA blurry vision,not feeling good Time Seen by Provider: 04/14/22 14:55 Source: patient Mode of arrival: Ambulatory History of Present Illness HPI Narrative: 56-year-old female with past medical history AFib, breast cancer, status post mastectomy presents to the ED with 2 days of fatigue, nausea. Patient states that she started feeling a little bit under with fatigue, nausea, felt like she was going to revert back into AFib. However patient states sinus. Patient denies fever, chills, chest pain, shortness of breath, vomiting, flank pain, dysuria, urinary frequency. Patient does endorse some urinary urgency, suprapubic cramping. Patient states that she felt really tired this morning, took a nap, woke up and thought her vision was a bit blurry bilaterally for a few minutes, which has resolved since then. Patient states she has a history of TIA and was worried about her symptoms today. On Anticoagulants: Yes (eliquis) Related Data Home Medications Medication Instructions Recorded Confirmed cholecalciferol (vitamin D3) 100 5,000 mcg PO Q DAY ##0 10/30/16 09/19/21 mcg (4,000 unit) capsule (Vitamin D3) multivitamin (Multiple Vitamins 1 tab PO Q DAY ##0 10/30/16 09/19/21 tablet) naproxen sodium 220 mg tablet 220 mg PO Q8-12H PRN Pain (Scale 11/27/17 09/19/21 (Aleve) Score 1-3) Previous Rx's Medication Instructions Recorded propranolol 10 mg tablet See Rx Instructions .Route 10/21/21 .COMPLEX #30 tabs azithromycin 250 mg tablet See Rx Instructions PO .COMPLEX #6 12/11/21 tabs nitrofurantoin 100 mg PO Q12H 5 days #10 caps 04/14/22 monohydrate/macrocrystals 100 mg capsule (Macrobid) Allergies Allergy/AdvReac Type Severity Reaction Status Date / Time cat dander Allergy Intermediate itchy Verified 04/21/21 15:32 eyes, runny nose, sinus imflamation dog dander Allergy Intermediate itchy Verified 04/21/21 15:32 eyes, runny nose, sinus imflamation adhesive AdvReac Intermediate Verified 04/21/21 15:32 Review of Systems <Kylee Ann PA-C - Last Filed: 04/14/22 19:34> Review of Systems ROS Unobtainable: All systems reviewed & are unremarkable except as noted in HPI and below Constitutional Constitutional: Denies chills, Reports fatigue, Denies fever(s), Denies frequent falls, Denies lethargy and Reports weakness Eyes Eyes: Denies change in vision, Denies eye discharge, Denies irritation and Denies loss of vision ENT Ears, Nose, Mouth, and Throat: Denies change in voice, Denies dizziness, Denies neck pain, Denies sore throat and Denies throat swelling Cardiovascular Cardiovascular: Denies chest pain, Denies irregular heart rhythm, Denies lightheadedness, Denies palpitations, Denies dyspnea, Denies dyspnea on exertion and Denies orthopnea Respiratory Respiratory: Denies cough, Denies dyspnea, Denies dyspnea on exertion and Denies wheezing Gastrointestinal Gastrointestinal: Denies abdominal pain, Denies change in bowel habits, Denies diarrhea, Reports nausea and Denies vomiting Genitourinary Genitourinary: Denies hematuria, Denies flank pain, Denies urinary incontinence and Denies urinary urgency Musculoskeletal Musculoskeletal: Denies back pain, Denies muscle weakness, Denies neck pain, Denies numbness and Denies tingling Integumentary/Breasts Skin/Breast: Denies pruritus, Denies erythema, Denies rash and Denies wounds Neurologic Neurologic: Denies behavioral changes, Denies confusion, Denies dizziness, Denies frequent falls, Denies loss of vision, Denies numbness, Denies tingling and Reports weakness Psychiatric Psychiatric: Denies anxiety, Denies behavioral changes, Denies confusion, Denies depression, Denies homicidal ideation and Denies suicidal ideation Endocrine Endocrine: Reports fatigue, Denies flushing and Denies palpitations Hematologic/Lymphatic Hematologic/Lymphatic: Denies easy bruising On Anticoagulants: Yes (eliquis) Allergic/Immunologic Allergic/Immunologic: Denies urticaria, Denies throat swelling and Denies whe ezing Patient History <Kylee Ann PA-C - Last Filed: 04/14/22 19:34> Medical History Acne (2011) Animal dander allergy Back fracture (1999) Bronchitis Chicken pox (1972) Chronic back pain (1999) Clavicle fracture (1999) 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 Dysplastic nevus of right shoulder Eczema (1998) 5 Joint pain (1978) Melanocytic nevus Neuropathy (1999) Normal Papanicolaou smear Presence of intrauterine contraceptive device (10/07/17) PTSD (post-traumatic stress disorder) (1999) Reactive airway disease (1989) Recurrent anxiety (1999) Recurrent major depressive disorder, in remission (12/04/15) Right hand pain (2012) Seasonal allergic rhinitis due to pollen (1971) Shoulder pain Surgical History History of bilateral mastectomy (~07/08/20) History of shoulder surgery Family History Father Age: 83 Colon cancer Hypertension Mother No problems noted. Sister No problems noted. Social History Smoking Status: Former smoker Smoking Status: Former smoker alcohol intake frequency: 0-2 drinks per day Substance Use Type: does not use Exam <Kylee Ann PA-C - Last Filed: 04/14/22 19:34> Narrative Exam Narrative: Const General:?cooperative, healthy appearing and comfortable [facility] Head:?normal to inspection Ears:?hearing grossly normal bilaterally Nose:?external nose normal Face and sinus:?normal facial exam and sinuses nontender Mouth:?oral mucosae normal Throat:?posterior oropharynx normal Eyes General:?appearance normal, both eyes and all related structures Neck Neck:?normal visual inspection and no lymphadenopathy noted Resp Effort & Inspection:?normal respiratory effort Auscultation:?clear to auscultation bilaterally Cardio Rate:?regular rate Rhythm:?regular rhythm GI Abdomen is soft, nondistended. Tender to palpation in the suprapubic region. Mild bilateral CVA tenderness. Neuro General:?patient alert, patient awake and patient oriented x3 Initial Vital Signs Initial Vital Signs: Vital Signs Temperature 97.5 F L 04/14/22 12:12 Pulse Rate 65 04/14/22 12:12 Respiratory Rate 18 04/14/22 12:12 Blood Pressure 144/85 H 04/14/22 12:12 Pulse Oximetry 99 04/14/22 12:12 Oxygen Delivery Method 04/14/22 12:12 <Angela Jackson DO - Last Filed: 04/17/22 14:43> Initial Vital Signs Initial Vital Signs: Vital Signs Temperature 97.5 F L 04/14/22 12:12 Pulse Rate 65 04/14/22 12:12 Respiratory Rate 18 04/14/22 12:12 Blood Pressure 144/85 H 04/14/22 12:12 Pulse Oximetry 99 04/14/22 12:12 Oxygen Delivery Method 04/14/22 12:12 Course <Kylee Ann PA-C - Last Filed: 04/14/22 19:34> Orders Ordered: ED Orders 04/14/22 12:[address] angio head and neck Stat XR chest 1V Stat EKG-12 Lead Stat 04/14/22 12:24 Complete Blood Count AUTO DIFF Stat Comprehensive Metabolic Panel Stat Magnesium Stat Partial Thromboplastin Time Stat Prothrombin Time INR Stat Troponin & CK Cardiac Panel Stat 04/14/22 16:00 Urine Microscopic Stat 04/14/22 16:10 Urine Culture Stat Vital Signs Vital signs: Vital Signs - 8 hr 04/14/22 12:12 04/14/22 16:39 Temperature 97.5 F L Pulse Rate 65 60 Respiratory Rate 18 16 Blood Pressure 144/85 H 131/75 Pulse Oximetry 99 99 Oxygen Delivery Method Room Air Room Air <DO Stacy Myles Last Filed: 04/17/22 14:43> Orders Ordered: ED Orders 04/14/22 12:[address] angio head and neck Stat XR chest 1V Stat EKG-12 Lead Stat 04/14/22 12:24 Complete Blood Count AUTO DIFF Stat Comprehensive Metabolic Panel Stat Magnesium Stat Partial Thromboplastin Time Stat Prothrombin Time INR Stat Troponin & CK Cardiac Panel Stat 04/14/22 16:00 Urine Microscopic Stat 04/14/22 16:10 Urine Culture Stat Vital Signs Vital signs: Vital Signs - 8 hr 04/14/22 12:12 04/14/22 16:39 Temperature 97.5 F L Pulse Rate 65 60 Respiratory Rate 18 16 Blood Pressure 144/85 H 131/75 Pulse Oximetry 99 99 Oxygen Delivery Method Room Air Room Air MDM - Neuro Symptoms/Deficit <Kylee Ann PA-C - Last Filed: 04/14/22 19:34> Lab Data Result diagrams: 04/14/22 12:24 04/14/22 12:24 Labs: Lab Results 04/14/22 04/14/22 04/14/22 Range/Units 12:24 12:24 12:24 WBC 8.2 (4.5-11.0) X10^3/uL RBC 4.82 (4.0-5.2) X10^6/uL Hgb 14.3 (12.0-16.0) g/dL Hct 41.7 (36-46) % MCV 86.5 (80-100) fL MCH 29.8 (26-34) PG MCHC 34.4 (30-36) % RDW 13.2 (11.6-14.8) % Plt Count 206 (150-400) X10^3/uL Neut % (Auto) 60.1 (50-75) % Lymph % (Auto) 28.9 (25-40) % [place] % (Auto) 8.3 (3-14) % Eos % (Auto) 2.0 (2-4) % Baso % (Auto) 0.7 (0-2) % Neut # (Auto) 4900 (6577-7427) /uL Lymph # (Auto) 2400 (7372-6076) /uL [place] # (Auto) 700 (0-900) /uL Eos # (Auto) 200 (0-450) /uL Baso # (Auto) 100 (0-100) /uL PT 16.1 H (10.1-12.7) SECONDS INR 1.4 H (0.9-1.3) APTT 38 H (26-36) SECONDS Sodium 142 (137-145) mmol/L Potassium 4.2 (3.4-5.1) mmol/L Chloride 102 (98-107) mmol/L Carbon Dioxide 31 (22-32) mmol/L BUN 18 H (7-17) mg/dL Creatinine 0.96 (0.52-1.04) mg/dL Estimated GFR > 60 (>60) mL/min BUN/Creatinine Ratio 18.8 (6-22) Glucose 78 (70-100) mg/dL Calcium 9.1 (8.4-10.2) mg/dL Magnesium 2.0 (1.6-2.3) mg/dL Total Bilirubin 0.6 (0.2-1.3) mg/dL AST 23 (14-36) IU/L ALT 14 (<35) IU/L Alkaline Phosphatase 87 (38-126) U/L Total Creatine Kinase 45 (30-135) U/L CK-MB (CK-2) TNP CK-MB (CK-2) Rel Index TNP Troponin I < 0.012 (0.01-0.034) ng/mL Total Protein 8.2 (6.3-8.2) g/dL Albumin 4.5 (3.5-5.0) g/dL Globulin 3.7 (1.7-4.1) g/dL Albumin/Globulin Ratio 1.2 (1.0-2.8) Urine RBC (0-5/HPF) Urine WBC (0-5/HPF) Amorphous Sediment Urine Bacteria (None) Ur Culture Indicated? 04/14/22 Range/Units 16:00 WBC (4.5-11.0) X10^3/uL RBC (4.0-5.2) X10^6/uL Hgb (12.0-16.0) g/dL Hct (36-46) % MCV (80-100) fL MCH (26-34) PG MCHC (30-36) % RDW (11.6-14.8) % Plt Count (150-400) X10^3/uL Neut % (Auto) (50-75) % Lymph % (Auto) (25-40) % [place] % (Auto) (3-14) % Eos % (Auto) (2-4) % Baso % (Auto) (0-2) % Neut # (Auto) (6245-7630) /uL Lymph # (Auto) (8012-5347) /uL [place] # (Auto) (0-900) /uL Eos # (Auto) (0-450) /uL Baso # (Auto) (0-100) /uL PT (10.1-12.7) SECONDS INR (0.9-1.3) APTT (26-36) SECONDS Sodium (137-145) mmol/L Potassium (3.4-5.1) mmol/L Chloride (98-107) mmol/L Carbon Dioxide (22-32) mmol/L BUN (7-17) mg/dL Creatinine (0.52-1.04) mg/dL Estimated GFR (>60) mL/min BUN/Creatinine Ratio (6-22) Glucose (70-100) mg/dL Calcium (8.4-10.2) mg/dL Magnesium (1.6-2.3) mg/dL Total Bilirubin (0.2-1.3) mg/dL AST (14-36) IU/L ALT (<35) IU/L Alkaline Phosphatase (38-126) U/L Total Creatine Kinase (30-135) U/L CK-MB (CK-2) CK-MB (CK-2) Rel Index Troponin I (0.01-0.034) ng/mL Total Protein (6.3-8.2) g/dL Albumin (3.5-5.0) g/dL Globulin (1.7-4.1) g/dL Albumin/Globulin Ratio (1.0-2.8) Urine RBC None seen (0-5/HPF) Urine WBC None seen (0-5/HPF) Amorphous Sediment 1+ Urine Bacteria None seen (None) Ur Culture Indicated? Culture not indicate Urine Dip Bedside Urine Glucose Negative Bedside Urine Bilirubin - Negative Bedside Urine Ketone - Negative Urine Specific [place]od[place] 1.010 Bedside Urine Occult Blood - Negative Bedside Urine pH 7.0 Bedside Urine Protein - Negative Bedside Urine Urobilinogen 0.2 Bedside Urine Nitrite - Negative Bedside Urine Leukocytes + 70 Esterase Imaging Data Chest x-ray: Radiologist's Impression: PROCEDURE:? XR CHEST 1V ? INDICATIONS:? Possible stroke ? TECHNIQUE:? One view of the chest was acquired.? ? COMPARISON:? [facility], , XR CHEST 1V, 04/07/2022, 20:13. ? FINDINGS:? ? Surgical changes and devices:? None.? ? Lungs and pleura:? Lungs are clear.? No pleural effusions or pneumothorax.? ? Mediastinum:? Mediastinal contours appear normal.? Heart size is normal.? ? Bones and chest wall:? No suspicious bony lesions.? Overlying soft tissues appear unremarkable.? ? IMPRESSION:? No acute cardiopulmonary process demonstrated radiographically. ? ? Dictated by: Zachary Gtz M.D. on 04/14/2022 at 12:56 ? ? Approved by: Zachary Gtz M.D. on 04/14/2022 at 12:56 ? CT scan - head: Radiologist's Impression: PROCEDURE:? CT STROKE ? INDICATIONS:? Positive BE-FAST, Stroke symptoms ? TECHNIQUE:? Noncontrast 4.5 mm thick angled axial sections acquired from the foramen magnum to the vertex, with coronal reformats.? For radiation dose reduction, the following was used:? automated exposure control, adjustment of mA and/or kV according to patient size.? ? COMPARISON:? None. ? FINDINGS:? Image quality:? Excellent.? ? CSF spaces:? Basal cisterns are patent.? No extra-axial fluid collections.? Ventricles are normal in size and shape.? ? Brain:? No midline shift.? No intracranial masses or hemorrhage.? Cain-white matter interface is normal.? ? Skull and face:? Calvarium and visualized facial bones are intact, without suspicious lesions.? ? Sinuses:? Visualized sinuses and mastoids are clear.? ? IMPRESSION:? Normal head CT. Results discussed with Dr. Jackson at time of dictation. ? This study fulfills neurological imaging criteria for inclusion or exclusion of acute stroke therapies based on available published neurological imaging guidelines.? ? ? Dictated by: Zachary Gtz M.D. on 04/14/2022 at 12:59 ? ? Approved by: Zachary Gtz M.D. on 04/14/2022 at 13:03 ? CTA head and neck: Radiologist's Impression: PROCEDURE:? CT ANGIO HEAD AND NECK ? INDICATIONS:? Possible stroke ? TECHNIQUE:? Pre-contrast 4.5 mm thick sections acquired from the foramen magnum to the vertex.? After the administration of intravenous contrast, 1 mm thick sections acquired from the aortic arch through the [place].? Post-contrast 4.5 mm thick sections then re- acquired from the foramen magnum to the vertex.? 3-dimensional xqaeldi-ycoufjvro-taklicxfit (MIP) and/or volume rendering reformats were acquired of the central intracranial vasculature and neck separately. For radiation dose reduction, the following was used:? automated exposure control, adjustment of mA and/or kV according to patient size.? ? COMPARISON:? None. ? FINDINGS:? Image quality:? Excellent.? ? BRAIN:? CSF spaces:? Ventricles are normal in size and shape.? Basal cisterns are patent.? No extra-axial fluid collections.? ? Brain:? No midline shift.? No intracranial bleeds or masses.? Cain-white matter interface appears intact.? ? Skull and face:? Calvarium and facial bones appear intact, without suspicious lesions.? Orbits appear normal.? ? Sinuses:? Sinuses and mastoids are clear.? ? HEAD CT ANGIOGRAPHY:? Anterior circulation:? Intracranial internal carotid arteries are normal in size and flow.? The flow within the paired anterior cerebral arteries is normal and symmetric.? The flow within the middle cerebral arteries is normal and symmetric.? The anterior communicating artery is seen.? No aneurysms are seen.? ? Posterior circulation:? Visualized portions of the vertebral arteries demonstrate normal caliber, and join to form a normal appearing basilar artery.? Flow within the posterior cerebral arteries is normal and symmetric.? No aneurysms are seen.? ? NECK CT ANGIOGRAPHY:? Carotid system:? The great vessels demonstrate a conventional anatomy as they arise from the aortic arch.? The origins of the common carotid arteries appear patent.? The common carotid arteries demonstrate normal caliber and courses.? The bifurcation regions are both widely patent.? The internal carotid arteries demonstrate normal calibers and courses.? ? Posterior circulation:? The origins of the vertebral arteries both appear widely patent.? The more superior extracranial portions of both vertebral arteries also demonstrate normal courses and calibers.? They join to form a normal appearing basilar artery.? ? Soft tissues:? Visualized neck soft tissues demonstrate no suspicious abnormalities.? ? Bones:? No suspicious bony lesions.? Visualized cervical spine appears normally aligned.? IMPRESSION:? ? No acute intracranial finding. ? No hemodynamically significant stenosis or occlusion of the major intracranial arterial circulation. ? Major arterial cervical vasculature appears widely patent. ? Any quantitative measurements of stenosis were performed using NASCET criteria.? ? ? Dictated by: Zachary Gtz M.D. on 04/14/2022 at 13:05 ? ? Approved by: Zachary Gtz M.D. on 04/14/2022 at 13:07 ? MDM Narrative Medical decision making narrative: 56-year-old female with past medical history AFib, breast cancer, status post mastectomy presents to the ED with 2 days of fatigue, nausea. Concern for versus metabolic derangements versus ACS versus UTI versus TIA. Work was was unremarkable other than leukocytes in the urine. No WBC in the urine. However, will treat with Macrobid given patient's symptoms and positive leuks. ED return precautions discussed with patient. Patient verbalized understanding. <Angela Jackson, DO - Last Filed: 04/17/22 14:43> Lab Data Labs: Lab Results 04/14/22 04/14/22 04/14/22 Range/Units 12:24 12:24 12:24 WBC 8.2 (4.5-11.0) X10^3/uL RBC 4.82 (4.0-5.2) X10^6/uL Hgb 14.3 (12.0-16.0) g/dL Hct 41.7 (36-46) % MCV 86.5 (80-100) fL MCH 29.8 (26-34) PG MCHC 34.4 (30-36) % RDW 13.2 (11.6-14.8) % Plt Count 206 (150-400) X10^3/uL Neut % (Auto) 60.1 (50-75) % Lymph % (Auto) 28.9 (25-40) % [place] % (Auto) 8.3 (3-14) % Eos % (Auto) 2.0 (2-4) % Baso % (Auto) 0.7 (0-2) % Neut # (Auto) 4900 (1573-2683) /uL Lymph # (Auto) 2400 (7117-3332) /uL [place] # (Auto) 700 (0-900) /uL Eos # (Auto) 200 (0-450) /uL Baso # (Auto) 100 (0-100) /uL PT 16.1 H (10.1-12.7) SECONDS INR 1.4 H (0.9-1.3) APTT 38 H (26-36) SECONDS Sodium 142 (137-145) mmol/L Potassium 4.2 (3.4-5.1) mmol/L Chloride 102 (98-107) mmol/L Carbon Dioxide 31 (22-32) mmol/L BUN 18 H (7-17) mg/dL Creatinine 0.96 (0.52-1.04) mg/dL Estimated GFR > 60 (>60) mL/min BUN/Creatinine Ratio 18.8 (6-22) Glucose 78 (70-100) mg/dL Calcium 9.1 (8.4-10.2) mg/dL Magnesium 2.0 (1.6-2.3) mg/dL Total Bilirubin 0.6 (0.2-1.3) mg/dL AST 23 (14-36) IU/L ALT 14 (<35) IU/L Alkaline Phosphatase 87 (38-126) U/L Total Creatine Kinase 45 (30-135) U/L CK-MB (CK-2) TNP CK-MB (CK-2) Rel Index TNP Troponin I < 0.012 (0.01-0.034) ng/mL Total Protein 8.2 (6.3-8.2) g/dL Albumin 4.5 (3.5-5.0) g/dL Globulin 3.7 (1.7-4.1) g/dL Albumin/Globulin Ratio 1.2 (1.0-2.8) Urine RBC (0-5/HPF) Urine WBC (0-5/HPF) Amorphous Sediment Urine Bacteria (None) Ur Culture Indicated? 04/14/22 Range/Units 16:00 WBC (4.5-11.0) X10^3/uL RBC (4.0-5.2) X10^6/uL Hgb (12.0-16.0) g/dL Hct (36-46) % MCV (80-100) fL MCH (26-34) PG MCHC (30-36) % RDW (11.6-14.8) % Plt Count (150-400) X10^3/uL Neut % (Auto) (50-75) % Lymph % (Auto) (25-40) % [place] % (Auto) (3-14) % Eos % (Auto) (2-4) % Baso % (Auto) (0-2) % Neut # (Auto) (6688-3777) /uL Lymph # (Auto) (5047-6335) /uL [place] # (Auto) (0-900) /uL Eos # (Auto) (0-450) /uL Baso # (Auto) (0-100) /uL PT (10.1-12.7) SECONDS INR (0.9-1.3) APTT (26-36) SECONDS Sodium (137-145) mmol/L Potassium (3.4-5.1) mmol/L Chloride (98-107) mmol/L Carbon Dioxide (22-32) mmol/L BUN (7-17) mg/dL Creatinine (0.52-1.04) mg/dL Estimated GFR (>60) mL/min BUN/Creatinine Ratio (6-22) Glucose (70-100) mg/dL Calcium (8.4-10.2) mg/dL Magnesium (1.6-2.3) mg/dL Total Bilirubin (0.2-1.3) mg/dL AST (14-36) IU/L ALT (<35) IU/L Alkaline Phosphatase (38-126) U/L Total Creatine Kinase (30-135) U/L CK-MB (CK-2) CK-MB (CK-2) Rel Index Troponin I (0.01-0.034) ng/mL Total Protein (6.3-8.2) g/dL Albumin (3.5-5.0) g/dL Globulin (1.7-4.1) g/dL Albumin/Globulin Ratio (1.0-2.8) Urine RBC None seen (0-5/HPF) Urine WBC None seen (0-5/HPF) Amorphous Sediment 1+ Urine Bacteria None seen (None) Ur Culture Indicated? Culture not indicate Urine Dip Bedside Urine Glucose Negative Bedside Urine Bilirubin - Negative Bedside Urine Ketone - Negative Urine Specific [place] 1.010 Bedside Urine Occult Blood - Negative Bedside Urine pH 7.0 Bedside Urine Protein - Negative Bedside Urine Urobilinogen 0.2 Bedside Urine Nitrite - Negative Bedside Urine Leukocytes + 70 Esterase Discharge Plan Departure Patient Disposition: Home Clinical Impression: UTI (urinary tract infection) Instructions: DI for Urinary Tract Infection (UTI) Activity Restrictions/Additional Instructions: You were evaluated in the ED today for fatigue, nausea. Your urine was positive for UTI. You are being prescribed a course of antibiotics. Please complete the full course of antibiotics. Return to the ED if your symptoms worsen, you experience uncontrollable vomiting, fever, chills. Prescriptions: New nitrofurantoin monohyd/m-cryst [Macrobid] 100 mg capsule 100 mg PO Q12H 5 Days Qty: 10 0RF Rx Instructions: must administer with a meal/food No Action naproxen sodium [Aleve] 220 mg tablet 220 mg PO Q8-12H PRN (Reason: Pain (Scale Score 1-3)) multivitamin [Multiple Vitamins] 1 EACH tablet 1 tab PO Q DAY Qty: 0 Vitamin D3 4,000 UNIT capsule 5,000 mcg PO Q DAY Qty: 0 propranolol 10 mg tablet See Rx Instructions .ROUTE .COMPLEX Qty: 30 0RF Dose Instruction: TAKE 1 TABLET BY MOUTH THREE TIMES DAILY NEEDED FOR ANXIETY Rx Instructions: TAKE 1 TABLET BY MOUTH THREE TIMES DAILY NEEDED FOR ANXIETY azithromycin 250 mg tablet See Rx Instructions PO .COMPLEX Qty: 6 0RF Rx Instructions: For 250 mg dose pack: take 500 mg today (day 1), then 250 mg for 4 days (days 2-5) PO Referrals: Alejo Rendon MD [Primary Care Provider] - Visit Report Forms: Patient Portal/API <Angela Jackson DO - Last Filed: 04/17/22 14:43> Cosign ED Attending Costyraature Attestation: I was immediately available in the department for consultation. Documentation has been reviewed.
[2022-04-14 16:25] LABS: Amorphous Sediment Urine 1+; Bacteria Urine None Seen; RBC Urine None Seen (0-5/HPF); WBC Urine None Seen (0-5/HPF)
[2022-04-14 16:39] VITALS: BP 131/75; PULSE 60; RESP 16; O2SAT 99
== END 2022-04-14 16:40 | disposition home or self-care (01) ==
PROVIDERS: Emergency Medicine; Emergency Provider Student in an Organized Health Care Education/Training Program; Family Provider Family Medicine; PCP Pediatrics
DX: N39.0 Urinary tract infection, site not specified (principal); R29.818 Other symptoms and signs involving the nervous system; I48.91 Unspecified atrial fibrillation; Z79.01 Long term (current) use of anticoagulants
CPT/HCPCS: 36415; 70450; 70496; 70498; 71045; 80053; 81003; 81015; 82550; 83735; 84484; 85025; 85610; 85730; 87086; 99284

== ENCOUNTER → 2022-04-25 13:11 | Outpatient (CLI) | payer OTHER, SELFPAY | PROVIDERS: Family Provider Family Medicine; PCP Pediatrics; Visit Provider Registered Nurse | DX: N39.0 Urinary tract infection, site not specified (principal) | CPT/HCPCS: 87086 ==

== ENCOUNTER → 2022-08-03 13:30 | Outpatient (CLI) | payer OTHER, SELFPAY ==
[2022-08-03 14:30] LABS: Add Manual Diff / Slide Review NO; Basophils Absolute Auto 100 /uL (0-100); Basophils Percent Auto 0.9 % (0-2); Eosinophils Absolute Auto 100 /uL (0-450); Eosinophils Percent Auto 1.1 % (2-4); Hematocrit 41.7 % (36-46); Hemoglobin 14.2 g/dL (12.0-16.0); Lymphocytes Absolute Auto 2100 /uL (1100-4500); Lymphocytes Percent Auto 31.3 % (25-40); Mean Corpuscular Hemoglobin 29.9 PG (26-34); Mean Corpuscular Volume 87.9 fL (80-100); Monocytes Absolute Auto 400 /uL (0-900); Monocytes Percent Auto 6.4 % (3-14); Neutrophils Absolute Auto 4100 /uL (1500-7000); Neutrophils Percent Auto 60.3 % (50-75); Platelet Count 215 X10^3/uL (150-400); Red Blood Cell Count 4.75 X10^6/uL (4.0-5.2); Red Cell Distribution Width 13.7 % (11.6-14.8); White Blood Cell Count 6.8 X10^3/uL (4.5-11.0)
[2022-08-03 14:52] LABS: Alanine Aminotransferase 18 IU/L (<35); Albumin 4.4 g/dL (3.5-5.0); Albumin Globulin Ratio 1.4 (1.0-2.8); Alkaline Phosphatase 100 U/L (38-126); Aspartate Aminotransferase 24 IU/L (14-36); BUN Creatinine Ratio 15.2 (6-22); Bilirubin Total 0.6 mg/dL (0.2-1.3); Blood Urea Nitrogen 12 mg/dL (7-17); Calcium 9.1 mg/dL (8.4-10.2); Carbon Dioxide 31 mmol/L (22-32); Chloride 98 mmol/L (98-107); Cholesterol 161 mg/dL (140-199); Estimated Glomerular Filt Rate > 60 mL/min (>60); Globulin 3.2 g/dL (1.7-4.1); Glucose 75 mg/dL (70-100); HDL Cholesterol 39 mg/dL (40-60); HEMOLYSIS < 15 (0-50); LDL Cholesterol Calculated 80 mg/dL (<100); Potassium 4.1 mmol/L (3.4-5.1); Sodium 139 mmol/L (137-145); Total Protein 7.6 g/dL (6.3-8.2); Triglycerides 210 mg/dL (35-150)
[2022-08-03 15:21] LABS: Thyroid Stimulating Hormone 1.57 uIU/mL (0.47-4.68)
[2022-08-03 15:39] LABS: Vitamin B12 403 pg/mL (239-931)
== END ==
PROVIDERS: Family Provider Family Medicine; PCP Family Medicine; Referring Provider Naturopath; Visit Provider Naturopath
DX: Z00.00 Encounter for general adult medical examination without abnormal findings (principal); E03.9 Hypothyroidism, unspecified; I48.91 Unspecified atrial fibrillation; Z87.01 Personal history of pneumonia (recurrent); R53.83 Other fatigue
CPT/HCPCS: 36415; 80053; 80061; 82607; 84443; 85025

== ENCOUNTER → 2022-10-01 07:43 | Outpatient (CLI) | payer OTHER, SELFPAY | PROVIDERS: Family Provider Family Medicine; PCP Family Medicine; Visit Provider Registered Nurse | DX: N39.0 Urinary tract infection, site not specified (principal) | CPT/HCPCS: 87086 ==

== ENCOUNTER 2023-02-10 12:06 | Emergency (ER) | payer OTHER, SELFPAY ==
[2023-02-10 12:11] VITALS: BP 141/74; PULSE 63; RESP 18; TEMP 36.6; O2SAT 99; BMI 26.3
--- NOTE | 2023-02-10 12:15 | DI.RAD.S_ITS ---
PROCEDURE: XR CHEST 1V INDICATIONS: chest pain TECHNIQUE: One view of the chest was acquired. COMPARISON: [facility], CR, XR CHEST 1V, 04/14/2022, 12:36. FINDINGS: Surgical changes and devices: Surgical clips present in the left axilla Lungs and pleura: Lungs are clear. No pleural effusions or pneumothorax. Mediastinum: Mediastinal contours appear normal. Heart size is normal. Bones and chest wall: No suspicious bony lesions. Overlying soft tissues appear unremarkable. IMPRESSION: No acute cardiopulmonary findings Approved by: Malick Hinkle M.D. on 02/10/2023 at 12:32
[2023-02-10 12:36] LABS: Add Manual Diff / Slide Review NO; Basophils Absolute Auto 100 /uL (0-100); Basophils Percent Auto 0.8 % (0-2); Eosinophils Absolute Auto 100 /uL (0-450); Eosinophils Percent Auto 1.4 % (2-4); Hematocrit 42.1 % (36-46); Hemoglobin 14.5 g/dL (12.0-16.0); Lymphocytes Absolute Auto 2600 /uL (1100-4500); Lymphocytes Percent Auto 29.9 % (25-40); Mean Corpuscular HGB Conc 34.4 % (30-36); Mean Corpuscular Hemoglobin 30.1 PG (26-34); Mean Corpuscular Volume 87.6 fL (80-100); Monocytes Absolute Auto 600 /uL (0-900); Monocytes Percent Auto 6.8 % (3-14); Neutrophils Absolute Auto 5400 /uL (1500-7000); Neutrophils Percent Auto 61.1 % (50-75); Platelet Count 211 X10^3/uL (150-400); Red Blood Cell Count 4.81 X10^6/uL (4.0-5.2); Red Cell Distribution Width 13.7 % (11.6-14.8); White Blood Cell Count 8.9 X10^3/uL (4.5-11.0)
[2023-02-10 12:59] LABS: INR 1.3 (0.9-1.3); Prothrombin Time 15.4 SECONDS (10.1-12.7)
[2023-02-10 13:01] LABS: PTT Partial Thromboplastin Tim 36 SECONDS (26-36)
[2023-02-10 13:13] LABS: Alanine Aminotransferase 19 IU/L (<35); Albumin 4.4 g/dL (3.5-5.0); Albumin Globulin Ratio 1.3 (1.0-2.8); Alkaline Phosphatase 99 U/L (38-126); Aspartate Aminotransferase 28 IU/L (14-36); BUN Creatinine Ratio 15.1 (6-22); Bilirubin Total 0.8 mg/dL (0.2-1.3); Blood Urea Nitrogen 13 mg/dL (7-17); Calcium 8.9 mg/dL (8.4-10.2); Carbon Dioxide 28 mmol/L (22-32); Chloride 103 mmol/L (98-107); Creatine Kinase 48 U/L (30-135); Estimated Glomerular Filt Rate > 60 mL/min (>60); Globulin 3.5 g/dL (1.7-4.1); Glucose 99 mg/dL (70-100); HEMOLYSIS < 15 (0-50); Lipase 125 U/L (23-300); Magnesium 2.1 mg/dL (1.6-2.3); Sodium 139 mmol/L (137-145); Total Protein 7.9 g/dL (6.3-8.2)
[2023-02-10 13:23] LABS: Troponin I < 0.012 ng/mL (0.01-0.034)
[2023-02-10 13:24] LABS: COVID-19 CEPHEID 4-PLEX PCR Negative (Negative); Influenza A - CEPHEID Flu A NEGATIVE (NEGATIVE); Influenza B - CEPHEID Flu B NEGATIVE (NEGATIVE); Respiratory Syncytial Virus Negative (Negative)
[2023-02-10 14:40] VITALS: BP 117/55; PULSE 48; RESP 8; O2SAT 98
[2023-02-10 15:00] VITALS: BP 110/61; PULSE 50; RESP 11; O2SAT 97
[2023-02-10 15:30] VITALS: BP 108/59; PULSE 48; RESP 13; O2SAT 99
[2023-02-10 15:46] VITALS: PULSE 50; RESP 12; O2SAT 99
[2023-02-10 16:00] VITALS: BP 108/61; PULSE 49; RESP 13; O2SAT 99
== END 2023-02-10 16:26 | disposition left against medical advice (07) ==
PROVIDERS: Emergency Provider Emergency Medicine; Family Provider Family Medicine; PCP Family Medicine
DX: R07.9 Chest pain, unspecified (principal); R06.02 Shortness of breath
CPT/HCPCS: 0241U; 36415; 71045; 80053; 82550; 83690; 83735; 84484; 85025; 85610; 85730; 93005; 93010; 99283

== ENCOUNTER → 2023-04-30 09:20 | Outpatient (CLI) | payer OTHER, SELFPAY ==
--- NOTE | 2023-04-30 | DI.RAD.S_ITS ---
PROCEDURE: XR LUMBAR SPINE 2-3V INDICATIONS: PAIN TECHNIQUE: 3 views of the lumbar spine were acquired. COMPARISON: None. FINDINGS: Bones: 5 [id number] vertebrae are present. There is normal bony alignment. No vertebral body compression fractures. No suspicious bony lesions. Disc space narrowing lumbar junction. Sclerotic facet joints noted the lower lumbar spine Soft tissues: Overlying bowel gas pattern is normal. No suspicious soft tissue calcifications. Moderate fecal debris in the right colon and rectum IMPRESSION: Degenerative disc disease and arthropathy Approved by: Malick Hinkle M.D. on 04/30/2023 at 18:32
== END ==
PROVIDERS: Family Provider Family Medicine; PCP Family Medicine; Referring Provider Naturopath; Visit Provider Naturopath
DX: M51.36 Other intervertebral disc degeneration, lumbar region (principal); M47.816 Spondylosis without myelopathy or radiculopathy, lumbar region; M54.50 Low back pain, unspecified
CPT/HCPCS: 72100

== ENCOUNTER → 2023-07-09 07:09 | Outpatient (CLI) | payer OTHER, SELFPAY ==
[2023-07-09 08:56] LABS: BUN Creatinine Ratio 20.7 (6-22); Blood Urea Nitrogen 18 mg/dL (7-17); Calcium 9.3 mg/dL (8.4-10.2); Carbon Dioxide 27 mmol/L (22-32); Chloride 105 mmol/L (98-107); Cholesterol 172 mg/dL (140-199); Estimated Glomerular Filt Rate > 60 mL/min (>60); Glucose 84 mg/dL (70-100); HDL Cholesterol 41 mg/dL (40-60); HEMOLYSIS < 15 (0-50); LDL Cholesterol Calculated 117 mg/dL (<100); Potassium 3.9 mmol/L (3.4-5.1); Sodium 139 mmol/L (137-145); Triglycerides 70 mg/dL (35-150)
[2023-07-09 09:00] LABS: High Sensitivity CRP - Cardiac 2.6 mg/L (1.0-3.0)
[2023-07-09 09:22] LABS: Vitamin D 25 Hydroxy (D3) 64.1 ng/mL (30.0-100.0)
[2023-07-09 09:30] LABS: TSH w/ Reflex to FT4 2.94 uIU/mL (0.47-4.68)
== END ==
PROVIDERS: Family Provider Family Medicine; PCP Family Medicine; Referring Provider Family Medicine; Visit Provider Family Medicine
DX: I48.0 Paroxysmal atrial fibrillation (principal)
CPT/HCPCS: 36415; 80048; 80061; 82306; 84443; 86140

== ENCOUNTER → 2023-10-13 07:56 | Outpatient (CLI) | payer OTHER, SELFPAY ==
[2023-10-13 08:52] LABS: HEMOLYSIS < 15 (0-50)
[2023-10-13 08:57] LABS: Albumin 4.3 g/dL (3.5-5.0); BUN Creatinine Ratio 21.2 (6-22); Blood Urea Nitrogen 18 mg/dL (7-17); Calcium 9.2 mg/dL (8.4-10.2); Carbon Dioxide 30 mmol/L (22-32); Cholesterol 186 mg/dL (140-199); Estimated Glomerular Filt Rate > 60 mL/min (>60); Glucose 87 mg/dL (70-100); HDL Cholesterol 49 mg/dL (40-60); LDL Cholesterol Calculated 119 mg/dL (<100); Phosphorous 3.7 mg/dL (2.5-4.5); Triglycerides 88 mg/dL (35-150)
[2023-10-13 09:14] LABS: Chloride 106 mmol/L (98-107); Sodium 142 mmol/L (137-145)
[2023-10-13 09:30] LABS: Thyroid Stimulating Hormone 2.68 uIU/mL (0.47-4.68)
[2023-10-15 03:55] LABS: Free T4, Direct Thyroxine 1.51 ng/dL (0.78-2.19)
== END ==
LOC: LAB 07:58
PROVIDERS: Family Provider Family Medicine; PCP Family Medicine; Referring Provider Student in an Organized Health Care Education/Training Program; Visit Provider Student in an Organized Health Care Education/Training Program
DX: E78.5 Hyperlipidemia, unspecified (principal); E16.2 Hypoglycemia, unspecified; E03.9 Hypothyroidism, unspecified
CPT/HCPCS: 36415; 80061; 80069; 82533; 84439; 84443

== ENCOUNTER → 2023-12-27 09:21 | Outpatient (CLI) | payer OTHER, SELFPAY ==
--- NOTE | 2023-12-27 09:23 | DI.CT.S_ITS ---
PROCEDURE: CT ANGIO CHEST INDICATIONS: PAROX AFIB TECHNIQUE: After the administration of intravenous contrast, 3 mm thick sections acquired from the pulmonary apices to the posterior costophrenic angles. 3-dimensional maximum intensity projection (MIP) coronal reformats were then acquired parallel to the pulmonary veins. For radiation dose reduction, the following was used: automated exposure control, adjustment of mA and/or kV according to patient size. COMPARISON: None. FINDINGS: Image quality: Excellent. Pulmonary veins: 3 pulmonary veins are identified. There is a joint pulmonary vein on the left. * Right superior pulmonary vein: 1.4 x 1.3 cm diameter, 1.1 cm from ostium to 1st order branch. * Right inferior pulmonary vein: 1.5 x 1.4 cm diameter, 1.0 cm from ostium to 1st order branch. * Joint left pulmonary vein: 1.6 x 1.6 cm in diameter, 2.4 cm to 1st order branch * Supernumerary pulmonary veins: none. Lungs and pleura: Lungs are clear. No pleural effusions or pneumothorax. Central and peripheral airways are patent. Mediastinum: Cardiomegaly with right atrial and right ventricular enlargement. No mediastinal or hilar adenopathy. Thoracic aorta and pulmonary arteries are normal in caliber and enhancement. Esophagus is normal in caliber, without hiatal hernia. Bones and chest wall: No suspicious bony lesions. Presumed severe osteoporosis. Multiple mild chronic compressions are present, including T5, T6, T7, T8, and T9. Ribs and thoracic spine appear intact throughout. No axillary or supraclavicular adenopathy. Thyroid gland is unremarkable. Breasts are surgically absent. Remote left axillary node resection. . Abdomen: Visualized upper abdominal solid organs appear normal in the early arterial phase of enhancement. IMPRESSION: 1. Normal variant pulmonary venous anatomy, in which there is a joint left pulmonary vein. 2. Measurements are as described above. 3. Cardiomegaly with right ventricular and right atrial enlargement. 4. Presumed severe osteoporosis with multiple mild chronic compression fractures. 5. No evidence of metastatic disease. Comment: Recommend consideration of nonemergent DEXA bone densitometry. Dictated by: Charles Jacques M.D. on 12/27/2023 at 11:05 Approved by: Charles Jacques M.D. on 12/27/2023 at 11:45
== END ==
PROVIDERS: Family Provider Family Medicine; PCP Family Medicine; Referring Provider Internal Medicine Cardiovascular Disease; Visit Provider Internal Medicine Cardiovascular Disease
DX: I48.0 Paroxysmal atrial fibrillation (principal); M48.54XA Collapsed vertebra, not elsewhere classified, thoracic region, initial encounter for fracture; I51.7 Cardiomegaly; Z90.13 Acquired absence of bilateral breasts and nipples
CPT/HCPCS: 71275; Q9967

== ENCOUNTER → 2023-12-31 | Outpatient (CLI) | payer OTHER, SELFPAY ==
--- NOTE | 2023-12-31 13:23 | DI.RAD.S_ITS ---
PROCEDURE: XR DEXA AXIAL SKELETON INDICATIONS: Wedge compression fracture of unspecified thoracic COMPARISON: None. FINDINGS: Lumbar Spine: Bone mineral density 1.112 g/cm2, T score 0.6. Left Hip: Bone mineral density 1.047 g/cm2, T score 0.9. Left Femoral Neck: Bone mineral density 0.902 g/cm2, T score 0.5. Right Hip: Bone mineral density 1.008 g/cm2, T score 0.5. Right Femoral Neck: Bone mineral density 0.952 g/cm2, T score 0.9. Fracture Risk Calculation (when applicable): 10-year fracture risk of a major osteoporotic fracture 19% and of a hip fracture 0.1%. (T score greater or equal to -1.0 to: NORMAL) (T score from -1.1 to -2.4: OSTEOPENIA) (T score less than or equal to -2.5: OSTEOPOROSIS) IMPRESSION: Bone mineral density is within normal limits. Follow-up guidelines as follows: Osteoporosis: Consider a repeat DEXA and Vertebral Fracture Assessment (VFA) exam in 2 years or sooner if medically necessary, to reassess this patient's status. Osteopenia: Consider a repeat DEXA in 2-3 years to reassess this patient's status, or if there is a new clinical indication. Normal: Consider a repeat DEXA in 5 years or sooner, or if there is a new clinical indication. All treatment decisions require clinical judgment and consideration of individual patient factors, including patient preferences, comorbidities, previous drug use, risk factors not captured in the FRAX model (e.g., frailty, falls, vitamin D deficiency, increased bone turnover, interval significant decline in bone density ) and possible under- or over-estimation of fracture risk by FRAX. In addition, the NOF Guide recommends that FDA-approved medical therapies be considered in postmenopausal women and men age >= 50 years with a: * Hip or vertebral (clinical or morphometric) fracture * T-score of <=-2.5 at the spine or hip * Ten-year fracture probability by FRAX of >= 3% for hip fracture or >=20% for major osteoporotic fracture. People with diagnosed cases of osteoporosis or at high risk for fracture should have regular bone mineral density tests. For patients eligible for Medicare, routine testing is allowed once every 2 years. The testing frequency can be increased to one year for patients who have rapidly progressing disease, those who are receiving or discontinuing medical therapy to restore bone mass, or have additional risk factors. Dictated by: Donovan Shaw M.D. on 12/31/2023 at 23:08 Approved by: Donovan Shaw M.D. on 12/31/2023 at 23:10
== END ==
PROVIDERS: Family Provider Family Medicine; PCP Family Medicine; Referring Provider Naturopath; Visit Provider Naturopath
DX: S22.000A Wedge compression fracture of unspecified thoracic vertebra, initial encounter for closed fracture (principal); Z78.0 Asymptomatic menopausal state
CPT/HCPCS: 77080

== ENCOUNTER → 2024-02-02 06:28 | Outpatient (CLI) | payer BC, SELFPAY ==
--- NOTE | 2024-02-02 06:29 | DI.ECHO.S_ITS ---
[facility]---------+ [facility] : : [address] : : [place] : : [address] : : Phone: [phone] Echocardiogram Report + + :Name: SHUKRI LO Study Date: 02/02/2024 Height: 67 in : :[facility] ReadingLocation: Weight: 170 lb : : Gender: Female BSA: 1.9 m2 : :: 1965 Age: 58 yrs BP: 142/79 mmHg: :Reason For Study: ATRIAL FIBRILLATION : :Ordering Physician: ANGELA, : :KATHRYN Almaraz Performed By: Jeanine Boyce : :Referring: KATHRYN MILLER : + + Interpretation Summary The ejection fraction is estimated to be 55-60%. Diastolic parameters suggest probable normal left ventricular diastolic function and normal filling pressures. The right ventricle is normal in size and function. There is mild tricuspid regurgitation. The right ventricular systolic pressure is estimated to be at least 21 mmHg based on an estimated right atrial pressure of 3 mm Hg. Compared to the prior study dated 02/11/2022, no significant change. Procedure: A two-dimensional transthoracic echocardiogram with color flow and Doppler was performed. The study quality was technically adequate. Comparison is made with the echocardiogram of 02/11/2022. The patient was in sinus rhythm with heart rates between 58-74 bpm during the exam. Left Ventricle: The left ventricle is normal in size and wall thickness. The ejection fraction is estimated to be 55-60%. Diastolic parameters suggest probable normal left ventricular diastolic function and normal filling pressures. Right Ventricle: The right ventricle is normal in size and function. Atria: The left atrial size is normal. Right atrial size is normal. There is no Doppler evidence for an interatrial shunt. Mitral Valve: The mitral valve is normal in structure and function. There is trace mitral regurgitation. Aortic Valve: The aortic valve is trileaflet. The aortic valve opens well. There is no aortic valve stenosis. There is trace aortic regurgitation. Tricuspid Valve: The tricuspid valve is normal in structure and function. There is mild tricuspid regurgitation. The right ventricular systolic pressure is estimated to be at least 21 mmHg based on an estimated right atrial pressure of 3 mm Hg. Pulmonic Valve: The pulmonic valve leaflets are thin and pliable; valve motion is normal. There is no pulmonic valvular regurgitation. Great Vessels: The aortic root is normal size. The dimensions of the ascending aorta are normal. The IVC is of normal diameter and collapses greater than 50% with a sniff. This suggests a low right atrial pressure of 3 mm Hg. Pericardium/ Pleura There is no pericardial effusion. There is no pleural effusion. MMode/2D Measurements & Calculations LVIDd: 4.9 cm LVOT diam: 2.0 cm LVIDs: 3.6 cm Ao root diam: 2.8 cm FS: 27.2 % asc Aorta Diam: 2.8 cm EPSS: 0.67 cm Ao Arch Diam (Prox Trans): 2.6 cm IVSd: 0.66 cm LVPWd: 0.59 cm LV harding. diameter/BSA (cm/m^2): 2.6 LV sys. diameter/BSA (cm/m^2): 1.9 LA A2 area: 17.4 cm2 RA long axis: 4.2 cm LA A4 area: 14.7 cm2 RA area: 12.4 cm2 LA length (vol): 4.8 cm RA vol: 30.8 ml LA vol: 44.9 ml RA : 16.3 ml/m2 LA vol index: 23.8 ml/m2 IVC diam: 1.1 cm RVD1 (basal): 3.8 cm RVD2 (mid): 3.1 cm TAPSE: 1.8 cm Doppler Measurements & Calculations Ao V2 max: 141.4 cm/sec LVOT Max Christopher: 101.6 cm/sec Ao V2 mean: 99.7 cm/sec LV V1 max P.1 mmHg Ao max P.0 mmHg LV V1 VTI: 20.3 cm Ao mean P.4 mmHg ZOË(I,D): 2.0 cm2 Ao V2 VTI: 32.2 cm ZOË(V,D): 2.2 cm2 sev ratio: 0.63 ZOË indexed to BSA (cm^2/m^2): 1.0 MV E max christopher: 49.2 cm/sec TR max christopher: 213.3 cm/sec MV A max christopher: 68.1 cm/sec TR max P.2 mmHg MV E/A: 0.72 PA V2 max: 91.8 cm/sec Med Peak E' Christopher: 6.7 cm/sec PA V2 mean: 67.1 cm/sec E/E' med: 7.3 PA mean P.0 mmHg Lat Peak E' Christopher: 7.8 cm/sec PA pr(Accel): 48.2 mmHg E/E' lat: 6.3 E/e' average: 6.8 MV dec time: 0.23 sec MVA(VTI): 3.2 cm2 MV V2 mean: 47.3 cm/sec SV(LVOT): 63.5 ml MV mean P.0 mmHg MV V2 VTI: 19.8 cm Reading Physician:02:30 PM
== END ==
PROVIDERS: Family Provider Family Medicine; PCP Family Medicine; Referring Provider Internal Medicine Cardiovascular Disease; Visit Provider Internal Medicine Cardiovascular Disease
DX: I07.1 Rheumatic tricuspid insufficiency (principal); I48.91 Unspecified atrial fibrillation
CPT/HCPCS: 93306

== ENCOUNTER → 2024-02-22 16:21 | Outpatient (CLI) | payer BC, SELFPAY ==
[2024-02-22 17:38] LABS: Add Manual Diff / Slide Review NO; Basophils Absolute Auto 100 /uL (0-100); Basophils Percent Auto 0.7 % (0-2); Eosinophils Absolute Auto 200 /uL (0-450); Eosinophils Percent Auto 2.3 % (2-4); Hematocrit 40.8 % (36-46); Hemoglobin 14.1 g/dL (12.0-16.0); Lymphocytes Absolute Auto 2700 /uL (1100-4500); Lymphocytes Percent Auto 32.8 % (25-40); Mean Corpuscular HGB Conc 34.5 % (30-36); Mean Corpuscular Hemoglobin 30.1 PG (26-34); Mean Corpuscular Volume 87.2 fL (80-100); Monocytes Absolute Auto 600 /uL (0-900); Monocytes Percent Auto 6.8 % (3-14); Neutrophils Absolute Auto 4700 /uL (1500-7000); Neutrophils Percent Auto 57.4 % (50-75); Platelet Count 203 X10^3/uL (150-400); Red Blood Cell Count 4.68 X10^6/uL (4.0-5.2); Red Cell Distribution Width 13.8 % (11.6-14.8); White Blood Cell Count 8.2 X10^3/uL (4.5-11.0)
[2024-02-22 17:54] LABS: BUN Creatinine Ratio 22.2 (6-22); Blood Urea Nitrogen 20 mg/dL (7-17); Calcium 8.9 mg/dL (8.4-10.2); Carbon Dioxide 26 mmol/L (22-32); Chloride 106 mmol/L (98-107); Estimated Glomerular Filt Rate > 60 mL/min (>60); Glucose 81 mg/dL (70-100); HEMOLYSIS 23 (0-50); Sodium 139 mmol/L (137-145)
== END ==
PROVIDERS: Family Provider Family Medicine; PCP Family Medicine; Referring Provider Internal Medicine Cardiovascular Disease; Visit Provider Internal Medicine Cardiovascular Disease
DX: I48.0 Paroxysmal atrial fibrillation (principal)
CPT/HCPCS: 36415; 80048; 85025

== ENCOUNTER 2024-03-22 14:07 | Outpatient (RCR) | payer BC, SELFPAY ==
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
== END 2024-08-23 11:17 | disposition home or self-care (01) ==
LOC: PHYS 14:07
PROVIDERS: Family Provider Family Medicine; PCP Family Medicine; Referring Provider Family Medicine; Visit Provider Family Medicine
DX: S22.000A Wedge compression fracture of unspecified thoracic vertebra, initial encounter for closed fracture (principal); M54.2 Cervicalgia; G89.29 Other chronic pain
CPT/HCPCS: 97110; 97161

== ENCOUNTER → 2024-04-10 06:31 | Outpatient (CLI) | payer BC, SELFPAY ==
--- NOTE | 2024-04-10 06:32 | DI.ECHO.S_ITS ---
[facility]---------+ [facility] : : [address] : : [place] : : [id number] : : Phone: [phone] Echocardiogram Report + + :Name: SHUKRI LO Study Date: 04/10/2024 Height: 67 in : :[facility] ReadingLocation: Weight: 170 lb : : Gender: Female BSA: 1.9 m2 : :: 1965 Age: 58 yrs BP: 109/72 mmHg: :Reason For Study: ATRIAL FIBRILLATION : :Ordering Physician: DONALD, : :RADHA Performed By: Zachary Pope : :Referring: RADHA BENNETT : + + Interpretation Summary The ejection fraction is estimated to be 55-60%. The right ventricle is normal in size and function. There is mild tricuspid regurgitation. Pulmonary artery pressures cannot be estimated because of the lack of a measurable TR jet velocity but the IVC suggests a CVP of around 3 mmHg. Compared to the prior study dated 02/02/2024, no significant change. Procedure: A two-dimensional transthoracic echocardiogram with color flow and Doppler was performed in limited views only. The study quality was technically good. Comparison is made with the echocardiogram of 02/02/2024. The patient was in normal sinus rhythm during the exam. Left Ventricle: The left ventricle is normal in size and wall thickness. The ejection fraction is estimated to be 55-60%. Left ventricular wall motion is normal. Right Ventricle: The right ventricle is normal in size and function. Atria: Both atria are normal in size. There is no Doppler evidence for an atrial septal defect. Mitral Valve: The mitral valve is normal. There is trace mitral regurgitation. Aortic Valve: The aortic valve opens well. The aortic valve is trileaflet. No aortic regurgitation is present. Tricuspid Valve: The tricuspid valve is normal. There is mild tricuspid regurgitation. Pulmonary artery pressures cannot be estimated because of the lack of a measurable TR jet velocity but the IVC suggests a CVP of around 3 mmHg. Great Vessels: The IVC is of normal diameter and collapses greater than 50% with a sniff. This suggests a low right atrial pressure of 3 mm Hg. MMode/2D Measurements & Calculations LVIDd: 5.1 cm IVC diam: 0.77 cm LVIDs: 3.7 cm FS: 28.8 % IVSd: 0.75 cm LVPWd: 0.71 cm LV harding. diameter/BSA (cm/m^2): 2.7 LV sys. diameter/BSA (cm/m^2): 1.9 Doppler Measurements & Calculations TR max simona: 226.2 cm/sec TR max P.5 mmHg Reading Physician:02:10 PM
== END ==
PROVIDERS: Family Provider Family Medicine; PCP Family Medicine; Referring Provider Internal Medicine Cardiovascular Disease; Visit Provider Internal Medicine Cardiovascular Disease
DX: I48.0 Paroxysmal atrial fibrillation (principal); I07.1 Rheumatic tricuspid insufficiency
CPT/HCPCS: 93307

== ENCOUNTER → 2024-05-05 07:53 | Outpatient (CLI) | payer BC, SELFPAY ==
--- NOTE | 2024-05-05 18:45 | DI.NM.S_ITS ---
DATE OF SERVICE: 05/05/2024 EXERCISE TREADMILL STRESS TEST PROCEDURE PERFORMED: Exercise treadmill stress test without imaging. ORDERING PROVIDER: Parviz Valverde MD INDICATIONS: The patient is a 58-year-old female with paroxysmal atrial fibrillation, exertional dyspnea, and atypical chest discomfort. FINDINGS: 1. The patient was able to exercise for 12 minutes on a standard Mrak protocol suggesting exceptional exercise capacity with an KEEGAN of -68%, achieving 12.8 METS. 2. She had a normal heart rate and blood pressure response to exercise with a resting heart rate of 76 bpm, increasing to 116 bpm after 1 minute of exercise, and achieving a maximum heart rate of 163 bpm (100% of her predicted maximum). 3. She had no chest discomfort or anginal symptoms but had moderate exertional dyspnea. 4. Her resting ECG show sinus rhythm with nonspecific ST and T-wave abnormalities in the lateral leads that remain unchanged with stress. There are no obvious ischemic changes or arrhythmias although significant motion artifact complicates the interpretation. Yet, immediate recovery tracings show no concerning abnormality. IMPRESSION: 1. Normal exercise treadmill stress test for ischemia. 2. Exceptional exercise capacity without angina or arrhythmias. She had a normal heart rate response to exercise and no obvious ECG changes of ischemia. Polina Antony - /pool/KALEN doc#: [id number]/job#: [id number] dd: 05/05/2024 16:53:00 dt: 05/05/2024 18:25:00 DICTATING MD/COPIES TO: Alireza Omalley MD; Parviz Valverde MD; Rajani Sainz M.D. COPIES MNE: [place]; ;
== END ==
PROVIDERS: Family Provider Family Medicine; PCP Family Medicine; Referring Provider Nurse Practitioner Family; Visit Provider Nurse Practitioner Family
DX: I48.0 Paroxysmal atrial fibrillation (principal)
CPT/HCPCS: 93017

== ENCOUNTER → 2024-10-24 08:24 | Outpatient (CLI) | payer BC, SELFPAY ==
[2024-10-24 09:02] LABS: Add Manual Diff / Slide Review NO; Basophils Absolute Auto 100 /uL (0-100); Basophils Percent Auto 1.1 % (0-2); Eosinophils Absolute Auto 100 /uL (0-450); Eosinophils Percent Auto 2.4 % (2-4); Hematocrit 43.1 % (36-46); Hemoglobin 14.7 g/dL (12.0-16.0); Lymphocytes Absolute Auto 1700 /uL (1100-4500); Lymphocytes Percent Auto 27.6 % (25-40); Mean Corpuscular HGB Conc 34.3 % (30-36); Mean Corpuscular Hemoglobin 29.8 PG (26-34); Mean Corpuscular Volume 87.1 fL (80-100); Monocytes Absolute Auto 400 /uL (0-900); Neutrophils Absolute Auto 3800 /uL (1500-7000); Neutrophils Percent Auto 62.9 % (50-75); Platelet Count 198 X10^3/uL (150-400); Red Blood Cell Count 4.95 X10^6/uL (4.0-5.2); Red Cell Distribution Width 13.7 % (11.6-14.8); White Blood Cell Count 6.1 X10^3/uL (4.5-11.0)
[2024-10-24 09:53] LABS: TSH w/ Reflex to FT4 2.31 uIU/mL (0.47-4.68)
[2024-10-24 13:17] LABS: Alanine Aminotransferase 18 IU/L (<35); Albumin 4.4 g/dL (3.5-5.0); Albumin Globulin Ratio 1.5 (1.0-2.8); Alkaline Phosphatase 70 U/L (38-126); Aspartate Aminotransferase 24 IU/L (14-36); BUN Creatinine Ratio 23.3 (6-22); Bilirubin Total 0.9 mg/dL (0.2-1.3); Blood Urea Nitrogen 20 mg/dL (7-17); Calcium 9.2 mg/dL (8.4-10.2); Carbon Dioxide 26 mmol/L (22-32); Chloride 106 mmol/L (98-107); Cholesterol 187 mg/dL (140-199); Estimated Glomerular Filt Rate > 60 mL/min (>60); Globulin 2.9 g/dL (1.7-4.1); Glucose 68 mg/dL (70-99); HDL Cholesterol 42 mg/dL (40-60); HEMOLYSIS < 15 (0-50); LDL Cholesterol Calculated 125 mg/dL (<100); Potassium 3.7 mmol/L (3.4-5.1); Sodium 141 mmol/L (137-145); Total Protein 7.3 g/dL (6.3-8.2); Triglycerides 102 mg/dL (35-150)
[2024-10-25 04:08] LABS: CRP, High Sensitivity 3.53 mg/L (0.00-3.00)
[2024-10-26 16:08] LABS: Cholesterol, Total 176 mg/dL (100-199); HDL-Cholesterol 43 mg/dL (>39); HDL-Particle (Total) 26.9 umol/L (>=30.5); LDL Particle 1233 nmol/L (<1000); LDL Size 21.3 nm (>20.5); LDL-Cholsterol 116 mg/dL (0-99); LP-IR Score 41 (<=45); Small LDL- Particle 311 nmol/L (<=527); Triglycerides 94 mg/dL (0-149)
== END ==
PROVIDERS: Family Provider Family Medicine; PCP Family Medicine; Referring Provider Internal Medicine Cardiovascular Disease; Visit Provider Internal Medicine Cardiovascular Disease
DX: I48.0 Paroxysmal atrial fibrillation (principal); E03.9 Hypothyroidism, unspecified; E78.00 Pure hypercholesterolemia, unspecified; E16.2 Hypoglycemia, unspecified; E78.1 Pure hyperglyceridemia
CPT/HCPCS: 36415; 80053; 80061; 83704; 84443; 85025; 86140

== ENCOUNTER → 2025-05-17 11:12 | Outpatient (CLI) | payer BC, SELFPAY ==
[2025-05-17 11:40] LABS: Add Manual Diff / Slide Review NO; Hematocrit 42.5 % (36-46); Hemoglobin 14.4 g/dL (12.0-16.0); Lymphocytes Absolute Auto 1700 /uL (1100-4500); Mean Corpuscular HGB Conc 33.9 % (30-36); Mean Corpuscular Hemoglobin 29.3 PG (26-34); Mean Corpuscular Volume 86.5 fL (80-100); Platelet Count 206 X10^3/uL (150-400)
== END ==
PROVIDERS: Family Provider Family Medicine; PCP Family Medicine; Referring Provider Physician Assistant; Visit Provider Physician Assistant
DX: R59.9 Enlarged lymph nodes, unspecified (principal)
CPT/HCPCS: 36415; 85025

== ENCOUNTER → 2025-05-21 11:48 | Outpatient (CLI) | payer BC, SELFPAY ==
--- NOTE | 2025-05-21 11:49 | DI.US.S_ITS ---
PROCEDURE: US SOFT TISSUE HEAD AND NECK INDICATIONS: RIGHT SUPRACLAVICULAR PAIN; RT POST AURICULAR PAIN TECHNIQUE: Real-time scanning was performed of the neck region of interest, with image documentation. Color Doppler was also utilized. COMPARISON: None. FINDINGS: Scanning is performed at the areas of clinical concern. Posterior right near at the area of lump/pain, there is a normal-sized lymph node seen measuring 5 x 3 x 5 mm with normal appearing cortex. No abnormal vascularity can be seen. At the site of right supraclavicular tenderness, no ultrasound abnormality can be seen. IMPRESSION: A normal appearing lymph node can be seen posterior to the right ear. No ultrasound abnormality can be seen within the right supraclavicular region. Dictated by: Paul Norris M.D. on 05/21/2025 at 12:46 Approved by: Paul Norris M.D. on 05/21/2025 at 12:47
== END ==
LOC: US 11:49
PROVIDERS: Family Provider Family Medicine; PCP Family Medicine; Referring Provider Physician Assistant; Visit Provider Physician Assistant
DX: R59.9 Enlarged lymph nodes, unspecified (principal)
CPT/HCPCS: 76536

== ENCOUNTER → 2025-07-03 09:23 | Outpatient (CLI) | payer BC, SELFPAY ==
[2025-07-03 10:07] LABS: Influenza A - CEPHEID Flu A NEGATIVE (NEGATIVE); Influenza B - CEPHEID Flu B NEGATIVE (NEGATIVE)
[2025-07-03 10:08] LABS: COVID-19 CEPHEID 4-PLEX PCR Negative (Negative)
== END ==
PROVIDERS: PCP Family Medicine; Referring Provider Nurse Practitioner Family; Visit Provider Nurse Practitioner Family
DX: R05.1 Acute cough (principal)
CPT/HCPCS: 87637

== ENCOUNTER → 2025-07-03 09:44 | Outpatient (CLI) | payer BC, SELFPAY ==
--- NOTE | 2025-07-03 09:45 | DI.RAD.S_ITS ---
PROCEDURE: XR CHEST 2V INDICATIONS: Cough TECHNIQUE: 2 views of the chest were acquired. COMPARISON: [facility], CR, XR CHEST 2V, 01/15/2022, 10:23. [facility], CR, XR CHEST 1V, 02/10/2023, 12:31. [facility], CR, XR CHEST 1V, 04/14/2022, 12:36. FINDINGS AND IMPRESSION: No airspace consolidation or pleural effusion. Normal heart size. Similar prominent contour of the right hilar vessels and main pulmonary artery on lateral view. Heart monitor in place. Degenerative osseous findings. Dictated by: David Paul M.D. on 07/03/2025 at 10:59 Approved by: David Paul M.D. on 07/03/2025 at 11:01
== END ==
LOC: RAD 09:45
PROVIDERS: PCP Family Medicine; Referring Provider Nurse Practitioner Family; Visit Provider Nurse Practitioner Family
DX: R05.1 Acute cough (principal)
CPT/HCPCS: 71046; 87637